=== PATIENT | female | born 1980 | race African-American/Black ===

== ENCOUNTER 2022-04-06 08:40 | Observation (INO) | payer OTHER, SELFPAY ==
[2022-04-03 09:31] VITALS: BMI 42.1
--- NOTE | 2022-04-03 09:51 | PC.NURSE ---
Report to the Outpatient Waiting Room, entrance under the green pavilion located off [facility], at time __6:00AM on date ___04/04/22____. OR Time: __7:30AM . - You and your visitor will be asked a series of questions to screen for COVID 19 for your protection. - Only one visitor is allowed at this time. - The patient visitor is requested to leave or wait in car when not with patient. - A mask is required within the hospital. Patients may have clear liquids (water, carbonated beverages, clear teas, apple juice) until 3 hours prior to surgery with a maximum of 20 ounces. - No food from midnight until time of surgery - Infants may have breast milk until 4 hours before surgery, formula 6 hours prior to surgery. - Children will be allowed to drink immediately following surgery. If applicable, please bring a bottle or sippy cup to assist with drinking. Juice, water, soda, and popsicles are readily available. For infants on formula, please bring formula the day of surgery. Pacifiers are allowed. Take the following medications with a SIP of water the morning of surgery: PAROXETINE Medications to discontinue per physician NONE Date to take last dose Please no make-up, nail uzbek, hairspray, perfume, deodorant, or body powder the day of surgery. No jewelry (including any body piercings) or valuables the day of surgery, leave them at home. Please take a shower or bath the night before, or the morning of, surgery with an antibacterial soap. Wear comfortable, loose fitting clothing. Children are encouraged to wear pajamas. - Jewelry must be removed prior to entering the operating room. Rings and piercings that are not removed may be cut off. - The hospital will not accept responsibility for valuables. - Please leave all valuables, including medications, at home the day of surgery. If you are going home after surgery, a licensed swing driver must drive you home. - NO public transportation without another adult. - We recommend that an adult stay with you for 24 hours following discharge. - We also recommend that you do not drive, make important decision, drink alcoholic beverages, or take any drugs that were not prescribed by your health care provider for at least 24 hours after your discharge time. For Pediatric surgeries, we recommend two adults accompany the child home (only one inside the building at this time). Follow any additional instructions given to you from your surgeon. If you or anyone in your household have experienced Covid symptoms in the past week, please notify your surgeon or the nurse liaison at the phone number below for possible testing. Telephone instructions given to ___PATIENT and asked if any additional questions and then verbalized understanding. Patient advised to call surgeon office or pre surgery nurse liaison [phone] if any additional questions.
[2022-04-04] VITALS (12 sets, daily range): BP systolic 117–147; BP diastolic 70–89; PULSE 61–98; RESP 18–33; TEMP 36.4–37.3; O2SAT 95–100
[2022-04-04] MEDS: ACETAMINOPHEN 500 MG TABLET 1000 MG PO (06:30)
--- NOTE | 2022-04-04 06:38 | ECG_ITS ---
Measurements Intervals Carrier Rate: 71 P: 10 WY: 150 QRS: -27 QRSD: 92 T: 24 QT: 393 QTc: 429 Interpretive Statements SINUS RHYTHM EARLY PRECORDIAL R/S TRANSITION BASELINE WANDER- I, II, AVR, AVL, V4-V6 BORDERLINE ECG Electronically Signed On 04-04-2022 7:54:41 CDT by Earnest Nice D.O.
--- NOTE | 2022-04-04 06:49 | WPDANESEPPF ---
Anes - Initial Pre Proc Eval Procedure: Operation Date: 04/04/22 07:30 Proposed Procedures p Total Laparoscopic Hysterectomy - Radha Edwards MD Date/Time: 04/04/22 06:49 Surgeon: Radha Edwards MD Pre Op Diagnosis: menorrhaghia Patient Data Age: 41 Gender: F Height: 1.49 m Weight: 91.9 kg Last Vital Signs Temp 36.4 C 04/04/22 06:40 Pulse 83 04/04/22 06:40 Resp 18 04/04/22 06:40 BP 125/78 04/04/22 06:40 Pulse Ox 100 04/04/22 06:40 Allergies Allergy/AdvReac Type Severity Reaction Status Date / Time penicillin G Allergy Unknown Verified 04/03/22 09:28 Home Medications Medication Instructions Recorded Confirmed Type paroxetine HCl 10 mg PO QAM 04/03/22 04/03/22 History Patient hx anesthesia problems: none Family hx anesthesia problems: none Results Review: All pre-operative results and documents have been reviewed as part of the pre-operative evaluation. [facility] Past Medical History Medical History Morbid obesity Smoker Surgical History Surgical History (Updated 04/04/22 @ 06:50 by Gus Hobson MD) History of section Social History Social History Smoking packs per day: 1 Smoking cigarettes per day: 20.0 Years smoked: 21 Smoking pack-years: 21.00 Smoking status: Current every day smoker Tobacco type: cigarettes Substance use: never Living arrangements: with family Additional living arrangements comments: & SON Spiritual care concerns: No Anes - Eval Final PreProcedure Day of Procedure 04/04/22 06:49 Patient weight: morbidly obese Heart: regular rate and rhythm Lungs: clear to auscultation Airway: Mallampati scale class III Neurological: alert and oriented Last oral intake: >/= 8 hours ASA classification: III Emergent: no Anesthetic plan: proceed Anesthesia type and monitoring: general ETT and standard monitoring Results Review: All pre-operative results and documents have been reviewed as part of the pre-operative evaluation. Informed Consent: The patient's anesthetic plan and its attendant risks and benefits were discussed with the patient/family/POA. Questions were solicited and answers provided to the satisfaction of the patient/family/POA.
[2022-04-04 07:03] LABS: Hematocrit 44.7 % (37.0-47.0); Hemoglobin 14.8 g/dL (12.0-15.0)
[2022-04-04] MEDS: LACTATED RINGERS 1,000 ML 30 ML IV CONT ×3 (07:03→12:17)
[2022-04-04] MEDS: KETOROLAC 15 MG/ML VIAL (*BKC) IV PUSH (07:04)
--- NOTE | 2022-04-04 07:14 | WPDHPUPDATE1 ---
History and Physical Update Update Date/Time: 04/04/22 07:14 History and Physical has been reviewed, including an updated exam of the patient. There are NO changes in the patient's condition. Risks, benefits, and alternatives have been discussed and questions answered. Patient agrees to proceed with procedure.
[2022-04-04] MEDS: ceFAZolin 2 GM/D5W 50 ML 2 GM/50 ML BAG IVPB (07:29)
[2022-04-04] MEDS: ceFAZolin SODIUM 1 GM VIAL IRRIGATION (08:21)
--- NOTE | 2022-04-04 10:39 | W.PM.PROC2 ---
Procedure Note - Detailed Date of Procedure 04/04/22 Pre-op Diagnosis menorrhaghia Right ureteral injury Post-op Diagnosis Same Procedure Performed Cystoscopy, bilateral retrograde pyelogram, right ureteral stent insertion, intraoperative consultation Surgeon Chastity Ruffin MD Anesthesia General Findings -cautery injury to right distal ureter -placement of right ureteral stent -normal left retrograde pyelogram Description of Procedure I was called for intraoperative consultation with Dr. Edwards at the conclusion of laparoscopic hysterectomy, as he noted a cautery injury to the right ureter with LigaSure device. Laparoscopic inspection revealed a solitary cautery carmela across the right ureter. I did remove the Reddy catheter the patient was prepped. Inserted a 22 F cystoscope through the urethra into the bladder. There were no bladder injuries noted. The patient had bilateral orthotopic ureteral orifices. We cannulated the left ureter and a gentle retrograde pyelogram revealed a delicate ureter and left collecting system without injury or extravasation. We then performed a right retrograde pyelogram that showed a narrowing in the distal ureter at the area of likely injury with slight hydronephrosis above this area. Contrast did move above the area of injury without extravasation. I then manipulated a glide wire into the renal pelvis and advanced a 5 F angiographic catheter. Then exchanged for a Bentson wire and then placed a 6 F variable length stent with a curl in renal pelvis curl in the bladder. A Reddy catheter was inserted the case turned back over to Dr. Edwards. I recommend the patient keep right ureteral stent placed for 4 to 6 weeks. After stent removal she will need a renal ultrasound and possible Lasix renal scan to ensure there is not ureteral stricture at the area of injury 1 to 2 months after stent is removed. Drains No Packing No Pathology None sent Complications No immediate complications Condition Stable Disposition PACU
--- NOTE | 2022-04-04 11:20 | SUR.OPER ---
At 0940 - Dr. Edwards requested a urology consult. At 1001 - Dr. Ruffin arrived and decided to proceed with a Cystoscopy. Patient was repositioned, draped and prepped for Cystoscopy. C-Arm in room. Cystoscopy started at 1025. Cystoscopy, Right Ureteral Stent Placement, Bilateral Retrograde Pyelogram complete at 1035 - see Dr. Ruffin's note. Patient was repositioned and draped to resume Laparoscopic Hysterectomy - Dr. Edwards started at 1044. See Dr. Edwards's note. Dr. Edwards remained in the room for Cystoscopy and additional OR staff (Naresh Jean, Anabel Araya and Adriana Alva helped with positioning and case needs)
--- NOTE | 2022-04-04 11:26 | W.PM.PROC2 ---
Procedure Note - Detailed Date of Procedure 04/04/22 Pre-op Diagnosis menorrhaghia, uterine myoma, large Post-op Diagnosis Same Procedure Performed Total laparoscopic hysterectomy, bilateral salpingectomy.. Surgeon Radha Edwards MD Anesthesia General Findings Very large uterine fibroids at the fundus of the uterus. Very large uterus overall. Normal appearing ovaries and tubes. Description of Procedure This patient was taken to the operating room. She was prepped and draped in the dorsal lithotomy position after induction of general anesthesia. The uterine manipulator and Merritt cup were placed. This was done with a speculum and tenaculum. The speculum was placed. The cervix was grasped with a tenaculum. The stay sutures were placed at 3 and 9:00 a.m.. The stay sutures of 0 Vicryl were brought through the appropriately sized Merritt cup. The tip of the DOMINGO manipulator was placed in the intrauterine cavity. The cup was slid into place around the cervix and into the fornices. It was locked into place. The sutures were then wrapped around the handle and tied under tension. A 5 mm skin incision was made in the left upper quadrant the abdomen. A 5 mm trocar was inserted into the intrauterine cavity under direct visualization of the scope. Pneumoperitoneum was achieved. A left lower quadrant 11 mm incision was made with scalpel. An 11 mm trocar was inserted into the anterior abdominal cavity under direct visualization the scope. A 5 mm infraumbilical incision was made with a scalpel and a 5 mm trocar was inserted the intra-abdominal cavity under direct visualization of the scope. The fallopian tubes were removed bilaterally. The mesosalpinx around the fallopian tubes were cauterized transected with LigaSure cautery. This was done in a bilateral fashion from the ovary to the uterine cornua. The fallopian tube was transected at the uterine cornu and amputated. The tube was taken out the left lower quadrant trocar site. In a stepwise fashion along the lateral aspects of the uterus the round ligament and broad ligaments were cauterized transected down to the level of the uterine arteries. A bladder flap was created in the bladder was moved distally to the end of the cervix and over the Merritt cup. The bilateral uterine arteries were cauterized and transected. It was at this time that is a structure in the right adnexa in the area of the uterine arteries on the right side, alongside the cervix was cauterized. Structure looks very much like a torturous right uterine artery. The structure was running right to left. It was torturous. It was cauterized briefly and not transected. It was believed to be the uterine artery and that this would allow better controlled bleeding as the case proceeded. After the uterus was removed ureteral lysis was performed.Bilateral ureteral lysis was performed. This was done from the pelvic brim down to the uterine artery. This was done with careful dissection using sharp and blunt dissection. It was at this time that the thermal injury of the right ureter at the level of the vaginal cuff was detected. Urology was asked to attend the case and evaluate. This was a very large uterus. Please refer the pathology report. It extended laterally a great deal and had 2 very large uterine fibroids in the fundus. This made the case incredibly challenging. The larger fibroid was removed after the uterine arteries were ligated. It was taken out separately from the cervix and the remainder of the uterus. Colpotomy was then performed. In a circumferential fashion the vagina was transected using unipolar cautery. The incision was made down on the Merritt cup. The uterus, both pieces, and cervix were taken out through the vagina. A pneumo occluder was placed in the vagina. The vaginal cuff was closed with a 0 V lock suture in a running fashion. The pelvis was irrigated with copious amounts antibiotic irrigation. The ureters were a
[2022-04-04] MEDS: fentaNYL CITRATE INJ (*CRX) 100 MCG/2 ML VIAL 25 MCG IV PUSH ×4 (12:06→12:56)
--- NOTE | 2022-04-04 13:10 | PC.NURSE ---
This patient, Heaven Elena, was received from PACU on 04/04/22 at 1310. Patient/family oriented to unit policies and routines
[2022-04-04] MEDS: KETOROLAC 30 MG/ML VIAL (*BKC) IV PUSH (15:14)
[2022-04-04] MEDS: LACTATED RINGERS 1,000 ML 125 ML IV CONT (15:14)
[2022-04-04] MEDS: HYDROcodone/acetaminophen (*CRX) 10-325 MG TABLET 1 TAB PO ×2 (15:15→18:06)
[2022-04-04] MEDS: HYDROcodone/acetaminophen (*CRX) 5-325 MG TABLET 1 TAB PO (22:14)
[2022-04-04] MEDS: IBUPROFEN 600 MG TABLET PO (22:14)
[2022-04-05] VITALS: BP 119/63; PULSE 86; RESP 18; TEMP 37.2
[2022-04-05] MEDS: ONDANSETRON INJ 4 MG/2 ML VIAL IV PUSH (00:21)
[2022-04-05] MEDS: LACTATED RINGERS 1,000 ML 125 ML IV CONT (00:21)
[2022-04-05 04:00] VITALS: BP 104/59; PULSE 88; RESP 20; TEMP 37.2
[2022-04-05] MEDS: HYDROcodone/acetaminophen (*CRX) 5-325 MG TABLET 1 TAB PO ×4 (04:54→19:21)
[2022-04-05] MEDS: IBUPROFEN 600 MG TABLET PO ×3 (04:54→19:21)
--- NOTE | 2022-04-05 07:17 | PM.GYNPNOP ---
DIRECT MARKETING EXECUTIVE - A/P Postoperative Procedures: Procedures Operation Date: 04/04/22 07:30 Actual Procedure Side Surgeon p Total Laparoscopic Hysterectomy with Bilateral Salpingectomy Bilateral R. Rolando Edwards MD s Cystoscopy, Right Ureteral Stent Placement, Bilateral Retrograde Pyelogram Chastity Ruffin MD Postoperative day: 1 Postoperative status: doing well Postoperative plan: see orders Time Spent With Patient Time: Total time spent is greater than 50% in coordination of care (as documented) at patient's floor/unit and/or counseling patient: Surgery complicated by a ureter injury . thermal, has stent, will likely discharge today, Reddy managed by urology, recovering normally. pain reasonable Time with patient: 15 - 25 minutes DIRECT MARKETING EXECUTIVE- PN:Subj Post-Op Subjective Date/time seen: 04/05/22 07:17 Subjective: patient reports feeling better, patient has no complaints and pain is well controlled Exam Const: General: healthy appearing, comfortable and no acute distress Resp: Auscultation: clear to auscultation bilaterally, no rales, no rhonchi and no wheezes Cardio: Rate: regular rate Heart sounds: no click, no murmurs and no rubs GI: Inspection: non-distended Auscultation: normal bowel sounds Extrem: General: normal to inspection, no pedal edema and no calf tenderness DIRECT MARKETING EXECUTIVE - PN: Obj Data Vital Signs Vital Signs: Vital Signs - 24 hr 04/04/22 11:18 04/04/22 11:30 04/04/22 11:45 Temperature 98.3 F Pulse Rate 80 61 78 Respiratory Rate 30 H 33 H 26 H Blood Pressure 120/73 122/70 147/89 H Pulse Oximetry 100 100 100 04/04/22 12:00 04/04/22 12:15 04/04/22 12:30 Temperature Pulse Rate 68 80 98 Respiratory Rate 24 H 22 H 25 H Blood Pressure 139/84 132/80 132/75 Pulse Oximetry 100 95 96 04/04/22 12:45 04/04/22 13:04 04/04/22 13:22 Temperature 97.6 F Pulse Rate 66 66 77 Respiratory Rate 26 H 24 H 18 Blood Pressure 136/76 137/77 121/78 Pulse Oximetry 97 97 04/04/22 16:00 04/04/22 19:00 04/05/22 00:00 Temperature 98.3 F 99.1 F 99 F Pulse Rate 74 84 86 Respiratory Rate 18 18 18 Blood Pressure 120/70 117/78 119/63 Pulse Oximetry 04/05/22 04:00 Temperature 98.9 F Pulse Rate 88 Respiratory Rate 20 Blood Pressure 104/59 L Pulse Oximetry Intake/Output Intake/Output: Intake & Output 04/02/22 04/03/22 04/04/22 04/05/22 23:59 23:59 23:59 23:59 Intake Total 2200 960 Output Total 630 1550 Balance 1570 -590 Meds/Results Medications: Active Medications Generic Name Dose Route Start Last Admin Trade Name Freq PRN Reason Stop Dose Admin Hydrocodone Bitart/Acetaminophen 1 tab 04/04/22 13:07 04/05/22 04:54 Hydrocodone/Acetaminophen (*Crx) 5-325 Mg Tablet PO 1 tab Q3H PRN Administration Pain Rated 5 or Less Hydrocodone Bitart/Acetaminophen 1 tab 04/04/22 13:07 04/04/22 18:06 Hydrocodone/Acetaminophen (*Crx) 10-325 Mg Tablet PO 1 tab Q3H PRN Administration Pain Rated 6 or Greater Lactated Ringer's 1,000 mls @ 125 mls/hr 04/04/22 13:35 04/05/22 00:21 Lr - Lactated Ringers Iv IV CONT 125 mls/hr .Q8H GEOVANY Administration Ibuprofen 600 mg 04/04/22 13:07 04/05/22 04:54 Ibuprofen 600 Mg Tablet PO 600 mg Q6H PRN Administration Cramping Ketorolac Tromethamine 30 mg 04/04/22 13:07 04/04/22 15:14 Ketorolac 30 Mg/Ml Vial (*Bkc) IV PUSH 04/09/22 13:06 30 mg Q6H PRN Administration Pain Rated 4-6 Naloxone HCl 0.1 mg 04/04/22 13:07 Naloxone Hcl 0.4 Mg/Ml Vial IV PUSH Q2M PRN Respiratory rate less than 10 Ondansetron HCl 4 mg 04/04/22 13:07 04/05/22 00:21 Ondansetron Inj 4 Mg/2 Ml Vial IV PUSH 4 mg Q6H PRN Administration Nausea And Vomiting Paroxetine HCl 10 mg 04/05/22 09:00 Paroxetine 10 Mg Tablet PO QAM [facility] Radiology Results: ITS Impressions Retrograde Pyelogram 05/18/22 11:06 IMPRESSION: 1. Right internal ureteral stent placement. Please refer to real-time procedur
[2022-04-05 08:00] VITALS: BP 117/58; PULSE 82; RESP 18; TEMP 36.2
[2022-04-05] MEDS: PARoxetine 10 MG TABLET PO (08:03)
--- NOTE | 2022-04-05 09:49 | WPDUROPN2 ---
Progress Note: A&P Assessment and Plan (1) Intraoperative ureteral injury: Code(s): N99.81 - Other intraoperative complications of genitourinary system Status: Acute Assessment and Plan: The patient can be discharged home at anytime per Urology. She will keep her stent in for 4-6 weeks then have it removed with Dr. Ruffin in [place]. We will then get a MAT a month later to ensure no hydronephrosis is present secondary to a stricture and call her with the results, if no hydro is present at that time, no further follow up will be necessary. Ok to remove her dalton. I will start Oxybutynin 5mg TID PRN for stent irritation. Subjective Subjective Date/Time Seen: 04/05/22 09:49 POD #1 Cystoscopy, bilateral retrograde pyelogram, right ureteral stent insertion, intraoperative consultation The patient is doing well this morning, she does c/o stent pain with activity. She is tolerating her diet and urine is clear in catheter. Review of Systems Cardiovascular: Cardiovascular: Denies chest pain Respiratory: Respiratory: Reports no additional respiratory complaints Gastrointestinal: Gastrointestinal: Reports abdominal pain, Denies nausea and Denies vomiting Genitourinary: Genitourinary: Denies hematuria and Reports flank pain Exam Resp: Effort & Inspection: normal respiratory effort Cardio: Rate: regular rate GI: GI Palp: Yes Soft to palpation and No Tenderness to palpation present (GI) : General: Yes CVA tenderness on the right Urinary Catheter: Urinary Catheter: patent and draining and urine clear Extrem: General: edema bilateral Objective Data Vital Signs Vital Signs: Vital Signs - 24 hr 04/04/22 11:18 04/04/22 11:30 04/04/22 11:45 Temperature 98.3 F Pulse Rate 80 61 78 Respiratory Rate 30 H 33 H 26 H Blood Pressure 120/73 122/70 147/89 H Pulse Oximetry 100 100 100 04/04/22 12:00 04/04/22 12:15 04/04/22 12:30 Temperature Pulse Rate 68 80 98 Respiratory Rate 24 H 22 H 25 H Blood Pressure 139/84 132/80 132/75 Pulse Oximetry 100 95 96 04/04/22 12:45 04/04/22 13:04 04/04/22 13:22 Temperature 97.6 F Pulse Rate 66 66 77 Respiratory Rate 26 H 24 H 18 Blood Pressure 136/76 137/77 121/78 Pulse Oximetry 97 97 04/04/22 16:00 04/04/22 19:00 04/05/22 00:00 Temperature 98.3 F 99.1 F 99 F Pulse Rate 74 84 86 Respiratory Rate 18 18 18 Blood Pressure 120/70 117/78 119/63 Pulse Oximetry 04/05/22 04:00 04/05/22 08:00 Temperature 98.9 F 97.1 F L Pulse Rate 88 82 Respiratory Rate 20 18 Blood Pressure 104/59 L 117/58 L Pulse Oximetry Intake/Output Intake/Output: Intake & Output 04/02/22 04/03/22 04/04/22 04/05/22 23:59 23:59 23:59 23:59 Intake Total 2200 2460 Output Total 630 2700 Balance 1570 -240 Meds/Results Medications: Active Medications Generic Name Dose Route Start Last Admin Trade Name Freq PRN Reason Stop Dose Admin Hydrocodone Bitart/Acetaminophen 1 tab 04/04/22 13:07 04/05/22 08:04 Hydrocodone/Acetaminophen (*Crx) 5-325 Mg Tablet PO 1 tab Q3H PRN Administration Pain Rated 5 or Less Hydrocodone Bitart/Acetaminophen 1 tab 04/04/22 13:07 04/04/22 18:06 Hydrocodone/Acetaminophen (*Crx) 10-325 Mg Tablet PO 1 tab Q3H PRN Administration Pain Rated 6 or Greater Lactated Ringer's 1,000 mls @ 125 mls/hr 04/04/22 13:35 04/05/22 00:21 Lr - Lactated Ringers Iv IV CONT 125 mls/hr .Q8H GEOVANY Administration Ibuprofen 600 mg 04/04/22 13:07 04/05/22 04:54 Ibuprofen 600 Mg Tablet PO 600 mg Q6H PRN Administration Cramping Ketorolac Tromethamine 30 mg 04/04/22 13:07 04/04/22 15:14 Ketorolac 30 Mg/Ml Vial (*Bkc) IV PUSH 04/09/22 13:06 30 mg Q6H PRN Administration Pain Rated 4-6 Naloxone HCl 0.1 mg 04/04/22 13:07 Naloxone Hcl 0.4 Mg/Ml Vial IV PUSH Q2M PRN Respiratory rate less than 10 Ondansetron HCl 4 mg 04/04/22 13:07 04/05/22 00:21 Ondansetron Inj
--- NOTE | 2022-04-05 10:24 | WPDANESPN ---
Anes - Prog Note Post-Op Date/Time: 04/05/22 10:24 Cardiovascular status: normal Respiratory status: normal Airway patency: baseline Mental status: baseline Post-Op hydration status: normal Vital Signs: Last Vital Signs Temp 36.2 C L 04/05/22 08:00 Pulse 82 04/05/22 08:00 Resp 18 04/05/22 08:00 BP 117/58 L 04/05/22 08:00 Pulse Ox 97 04/04/22 13:04 Pain Score (VAS): 3 I/O: Intake & Output 04/04/22 04/05/22 04/05/22 23:59 07:59 15:59 Intake Total 7315 233 1311 Output Total 600 1550 1150 Balance 900 -590 350 Laboratory Tests 04/04/22 06:58 Post-procedural complaints: none Patient Feedback: Patient satisfied with anesthetic care.
[2022-04-05] MEDS: OXYBUTYNIN CHLORIDE 5 MG TABLET PO (17:34)
[2022-04-05] MEDS: HYDROcodone/acetaminophen (*CRX) 10-325 MG TABLET 1 TAB PO ×2 (17:34→22:02)
[2022-04-05 17:41] VITALS: BP 152/89; PULSE 79; PULSE 82; RESP 18; RESP 20; TEMP 36.9; O2SAT 97
[2022-04-05 19:13] VITALS: BP 150/86; PULSE 96; RESP 18; TEMP 36.9
--- NOTE | ~2022-04-06 | XR_ITS ---
EXAMINATION: XR retrograde pyelo w/stent BI DATE: 04/04/2022 10:49 INDICATION: Right internal ureteral stent placement TECHNIQUE: Fluoroscopic images from a right internal ureteral stent placement are submitted for dano owens 48 seconds of fluoroscopy time. 94 fluoroscopic images. FINDINGS: There is a right double-J internal ureteral stent projecting in expected position, with proximal [place] loop at the level of the renal pelvis and distal loop in the pelvis within the bladder lumen. IMPRESSION: 1. Right internal ureteral stent placement. Please refer to real-time procedural findings for marjorie escalante. Reviewed, dictated and finalized at location A. IMPRESSION: 1. Right internal ureteral stent placement. Please refer to real-time procedu ral findings for details.
[2022-04-06] MEDS: IBUPROFEN 600 MG TABLET PO ×2 (04:40→10:54)
[2022-04-06] MEDS: OXYBUTYNIN CHLORIDE 5 MG TABLET PO (04:41)
[2022-04-06] MEDS: HYDROcodone/acetaminophen (*CRX) 5-325 MG TABLET 1 TAB PO ×2 (04:41→09:21)
--- NOTE | 2022-04-06 07:31 | PM.GYNPNOP ---
RCP - A/P Assessment and plan (1) Post-op pain: Code(s): G89.18 - Other acute postprocedural pain Status: Acute Assessment and Plan: patient stayed an additional day for delayed bowel function and pain control, to D?C (2) Intraoperative ureteral injury: Code(s): N99.81 - Other intraoperative complications of genitourinary system Status: Acute Postoperative Procedures: Procedures Operation Date: 04/04/22 07:30 Actual Procedure Side Surgeon p Total Laparoscopic Hysterectomy with Bilateral Salpingectomy Bilateral Radha Edwards MD s Cystoscopy, Right Ureteral Stent Placement, Bilateral Retrograde Pyelogram Chastity Ruffin MD Postoperative day: 2 Postoperative status: doing well Postoperative plan: see orders Time Spent With Patient Time: Total time spent is greater than 50% in coordination of care (as documented) at patient's floor/unit and/or counseling patient: Time with patient: 15 - 25 minutes RCP- PN:Subj Post-Op Subjective Date/time seen: 04/06/22 07:31 Subjective: patient reports feeling better, patient has no complaints and pain is well controlled Exam Const: General: healthy appearing, comfortable and no acute distress Resp: Auscultation: clear to auscultation bilaterally, no rales, no rhonchi and no wheezes Cardio: Rate: regular rate Heart sounds: no click, no murmurs and no rubs GI: Inspection: non-distended Auscultation: normal bowel sounds Extrem: General: normal to inspection, no pedal edema and no calf tenderness RCP - PN: Obj Data Vital Signs Vital Signs: Vital Signs - 24 hr 04/05/22 08:00 04/05/22 17:41 04/05/22 19:13 Temperature 97.1 F L 98.5 F 98.4 F Pulse Rate 82 82 96 Respiratory Rate 18 18 18 Blood Pressure 117/58 L 152/89 H 150/86 H Pulse Oximetry 97 Intake/Output Intake/Output: Intake & Output 04/03/22 04/04/22 04/05/22 04/06/22 23:59 23:59 23:59 23:59 Intake Total 2200 3610 800 Output Total 251 2885 950 Balance 1570 -265 -150 Meds/Results Medications: Active Medications Generic Name Dose Route Start Last Admin Trade Name Freq PRN Reason Stop Dose Admin Hydrocodone Bitart/Acetaminophen 1 tab 04/04/22 13:07 04/06/22 04:41 Hydrocodone/Acetaminophen (*Crx) 5-325 Mg Tablet PO 1 tab Q3H PRN Administration Pain Rated 5 or Less Hydrocodone Bitart/Acetaminophen 1 tab 04/04/22 13:07 04/05/22 22:02 Hydrocodone/Acetaminophen (*Crx) 10-325 Mg Tablet PO 1 tab Q3H PRN Administration Pain Rated 6 or Greater Ibuprofen 600 mg 04/04/22 13:07 04/06/22 04:40 Ibuprofen 600 Mg Tablet PO 600 mg Q6H PRN Administration Cramping Ketorolac Tromethamine 30 mg 04/04/22 13:07 04/04/22 15:14 Ketorolac 30 Mg/Ml Vial (*Bkc) IV PUSH 04/09/22 13:06 30 mg Q6H PRN Administration Pain Rated 4-6 Naloxone HCl 0.1 mg 04/04/22 13:07 Naloxone Hcl 0.4 Mg/Ml Vial IV PUSH Q2M PRN Respiratory rate less than 10 Ondansetron HCl 4 mg 04/04/22 13:07 04/05/22 00:21 Ondansetron Inj 4 Mg/2 Ml Vial IV PUSH 4 mg Q6H PRN Administration Nausea And Vomiting Oxybutynin Chloride 5 mg 04/05/22 10:01 04/06/22 04:41 Oxybutynin Chloride 5 Mg Tablet PO 5 mg TID PRN Administration bladder spasms Paroxetine HCl 10 mg 04/05/22 09:00 04/05/22 08:03 Paroxetine 10 Mg Tablet PO 10 mg QAM GEOVANY Administration Radiology Results: ITS Impressions Retrograde Pyelogram 04/04/22 11:06 IMPRESSION: 1. Right internal ureteral stent placement. Please refer to real-time procedural findings for details. Labs CBC & Chem 7: 04/04/22 06:58
[2022-04-06 08:45] VITALS: BP 148/76; PULSE 76; RESP 18; TEMP 36.4; O2SAT 97
[2022-04-06] MEDS: PARoxetine 10 MG TABLET PO (09:21)
--- NOTE | 2022-04-06 09:30 | PC.NURSE ---
Pt introductions made and plan of care discussed per post op tentmaker surgery, pain management, daily care activities and pending discharge to home. PT sole recipient of such instructions and there appears to be diminished cognitive abilities. So a family member was required to attend discharge instructions when being discharged today. PT received such instructions this shift via one to one discussion and demonstrations. PT did verbalized understanding of such care.
[2022-04-06 09:40] VITALS: PULSE 76; RESP 18; O2SAT 97
--- NOTE | 2022-04-06 10:30 | PC.NURSE ---
Pt and her mother, Amparo, both received discharge instructions per protocol and verbalized understanding
--- NOTE | 2022-04-06 10:54 | PC.NURSE ---
PT discharged to home via wheelchair accompanied by her mother and taken to waiting car. Follow up appts confirmed
--- NOTE | 2022-05-06 15:20 | PM.DS ---
DS: Admitting Diagnosis Discharge Date 04/06/22 Admitting Diagnosis Severe menorrhagia DS: Discharge Diagnosis Discharge Diagnosis (1) Menorrhagia: Code(s): N92.0 - Excessive and frequent menstruation with regular cycle Status: Acute (2) Severe dysmenorrhea: Code(s): N94.6 - Dysmenorrhea, unspecified Status: Acute (3) Myoma: Code(s): D21.9 - Benign neoplasm of connective and other soft tissue, unspecified Status: Acute (4) Intraoperative ureteral injury: Code(s): N99.81 - Other intraoperative complications of genitourinary system Status: Acute (5) Post-op pain: Code(s): G89.18 - Other acute postprocedural pain Status: Acute DS: Summary Hospital Course Hospital Course: this patient is a 41-year-old female who presented to the hospital for surgery. She was to have a total laparoscopic hysterectomy bilateral salpingectomy. That was completed but a ureter injury occurred during the surgery. It was identified intraoperatively and Urology was able to place a stent in the ureter. It was a thermal injury. Postoperatively the patient had significant pain. She had pain from the stent. She was observed for 48 hours. She was discharged home on postoperative day 2. no postoperative complications With the exception of excessive postoperative pain. she was discharged home on postoperative day 2 with short-term follow-up. Time Spent with Patient Time attestation: Total time spent providing and/or coordinating discharge services: DS: Data Data Completed and Pending Completed studies during hospitalization: Pending at discharge 04/04/22 09:17 Surgical [PTH] Routine Discharge Plan Discharge Attending physician on discharge: Radha Edwards Consulting providers: Fredi Ramsay ; Angelica Linares ; Chastity Ruffin Rafe M. Discharging Clinician: Radha Edwards Anticipated Discharge Date/Time: 04/06/22 09:30 Patient Disposition: Home, Self-Care Activity: may shower, no driving and pelvic rest Diet: as tolerated and regular Wound Care Instructions: incision open to air Discharge Instructions: Urology Instructions: You will be contacted for an appointment with Dr. Ruffin at our [place] office for removal of your stent in 4-6 weeks. [facility] [address] [place] [address] [address] [place] [address] You will also get an order at that appointment for a renal ultrasound to be done a month after the stent removal to make sure your ureter has healed correctly without any scar tissue and is allowing the kidney to drain properly. You should expect some blood in your urine, cloudy urine, urinary frequency, urgency ankd and pain in relation to your stent especially with activity and urination. These are normal expectations with a stent. You may take Oxybutynin 5mg 3x/day as needed for stent irritation. If you develop a fever, your urine becomes grossly bloody or you notice an odor to your urine call the office or go to the ER. Patient Instructions: Laparoscopic Hysterectomy (DC), Pain Management After Surgery (DC) Stand Alone Forms: General Discharge Instructions Follow-up/Referrals: Chastity Ruffin MD [Physician] - Discharge Medications: New oxybutynin chloride 5 mg tablet 5 mg PO TID PRN (Reason: bladder spasms) Qty: 90 2RF hydrocodone-acetaminophen 5-325 mg tablet 1 tablet PO Q4H PRN (Reason: pain) Qty: 25 0RF Continued paroxetine HCl 10 mg tablet 10 mg PO QAM Date of admission: 04/06/22 08:40 Primary Care Provider: PHYSICIAN,STANDPIPE TENDER Admitting Provider: Radha Edwards Attending physician on admission: Radha Edwards Condition: Stable
== END 2022-04-06 10:54 | disposition home or self-care (01) ==
LOC: ANHSURGERY 09:02 → ANHOB2 09:02
PROVIDERS: Anesthesiology; Urology; Admitting Provider Obstetrics & Gynecology; Visit Provider Obstetrics & Gynecology
PROC: 0UT9FZZ Resection of Uterus, Via Natural or Artificial Opening With Percutaneous Endoscopic Assistance (ICD-10-PCS; CPT 58554; principal; 2022-04-04 07:30)
PROC: (CPT 52352; 2022-04-04 07:30)
DX: N92.0 Excessive and frequent menstruation with regular cycle (principal); R10.2 Pelvic and perineal pain; N80.0 Endometriosis of uterus; D25.1 Intramural leiomyoma of uterus; D25.0 Submucous leiomyoma of uterus; D25.2 Subserosal leiomyoma of uterus; N83.8 Other noninflammatory disorders of ovary, fallopian tube and broad ligament; N99.81 Other intraoperative complications of genitourinary system
CPT/HCPCS: 58554; 52332; 36415; 74420; 85014; 85018; 86850; 86900; 86901; 88307; 93005; 99199; A9270; C1769; C1887; C2617; G0378; G0379; J0330; J0690; J1100; J1170; J1885; J2250; J2405; J2704; J2710; J3010; J7030; J7120; Q9966; Q9968

== ENCOUNTER 2023-12-25 08:45 | Outpatient (CLI) | payer OTHER, SELFPAY ==
--- NOTE | 2023-12-25 12:00 | NEURO_ITS ---
Impression: # Complains of numbness of right foot. # Normal Nerve Conduction Study. # Normal needle/EMG exam. Nerve Conduction Studies Anti Sensory Summary Table Stim Site NR Peak (ms) P-T Amp (?V) Site1 Site2 Delta-P (ms) Dist (cm) Iftikhar (m/s) Right Saphenous Anti Sensory (Ant Med Mall) 14cm 2.8 7.8 14cm Ant Med Mall 2.8 0.0 Right Sup Fibular Anti Sensory (Ant Lat Mall) 14 cm 3.1 13.3 14 cm Ant Lat Mall 3.8 16.0 42 Right Sural Anti Sensory (Lat Mall) Calf 2.7 10.1 Calf Lat Mall 2.7 16.0 59 Motor Summary Table Stim Site NR Onset (ms) O-P Amp (mV) Site1 Site2 Delta-0 (ms) Dist (cm) Iftikhar (m/s) Right Peroneal Motor (Vastus Med) Ankle 3.1 3.2 Popit Ankle 6.2 38.0 61 Popit 9.3 3.1 Right Tibial Motor (Abd Neumann Brev) Ankle 4.1 3.4 Knee Ankle 6.7 37.0 55 Knee 10.8 1.2 F Wave Studies NR F-Lat (ms) L-R F-Lat (ms) Right Peroneal (Mrkrs) (EDB) 41.41 Right Tibial (Mrkrs) (Abd Hallucis) 40.35 EMG Side Muscle Nerve Root Ins Act Fibs Amp Dur Recrt Comment Right AntTibialis Dp Br Fibular L4-5 Nml Nml Nml Nml Nml Right Gastroc Tibial S1-2 Nml Nml Nml Nml Nml Right Fibularis Long Sup Br Fibular L5-S1 Nml Nml Nml Nml Nml Right Flex Dig Long Tibial L5-S2 Nml Nml Nml Nml Nml Right Ext Dig Brev Dp Br Fibular L5, S1 Nml Nml Nml Nml Nml Right QuadratusFem QuadFemoris L4-5, S1 Nml Nml Nml Nml Nml MTDD
== END 2023-12-25 08:46 | disposition home or self-care (01) ==
PROVIDERS: PCP Emergency Medicine; Visit Provider Student in an Organized Health Care Education/Training Program
DX: M21.371 Foot drop, right foot (principal)
CPT/HCPCS: 95886; 95909

== ENCOUNTER 2024-06-10 08:48 | Outpatient (CLI) | payer OTHER, SELFPAY ==
--- NOTE | ~2024-06-10 | US_ITS ---
EXAMINATION: US soft tissue abdomen DATE: 06/10/2024 09:22 INDICATION: Palpable left-sided abdominal mass TECHNIQUE: Multiple grayscale and Doppler ultrasound images of the region of concern at the left abdo karina wall were obtained. COMPARISON: None FINDINGS: Focal ill-defined region in the subcutaneous fat at the region of concern with posterior acoustic sha dowing. This region measures approximately 2 cm in maximal extent. On the cine images there appears b e some movement of the tissues within this region with Valsalva. On one of the sets of cine images th ere appears to be a defect along the linear echogenic peritoneal margin however specificity is limite d as this lies in the region of posterior acoustic shadowing. No evident peristalsing bowel. No discr ete soft tissue masses or fluid collections. IMPRESSION: 1. Small region of posterior acoustic shadowing in the subcutaneous tissues at the region of concern with suggestion of a possible defect in the underlying peritoneum suspicious for a small fat-containi ng ventral hernia. Would consider CT for more definitive determination. Reviewed, dictated and finalized at location A. IMPRESSION: 1. Small region of posterior acoustic shadowing in the subcutaneous tissues at the region of concern with suggestion of a possible defect in the underlying pe ritoneum suspicious for a small fat-containing ventral hernia. Would consider C T for more definitive determination.
== END 2024-06-10 08:49 | disposition home or self-care (01) ==
PROVIDERS: PCP Emergency Medicine; Visit Provider Emergency Medicine
DX: R19.09 Other intra-abdominal and pelvic swelling, mass and lump (principal)
CPT/HCPCS: 76705

== ENCOUNTER 2024-07-10 15:29 | Outpatient (CLI) | payer OTHER, SELFPAY ==
--- NOTE | ~2024-07-10 | MM_ITS ---
EXAMINATION: MM screening niall BI w neo HISTORY: Screening TECHNIQUE: Craniocaudal and mediolateral oblique 3-D tomosynthesis images were obtained and synthetic 2-D images were generated. CAD analysis was submitted and interpreted. COMPARISON: No prior studies for comparison. BREAST PARENCHYMAL COMPOSITION: Not dense: There are scattered areas of fibroglandular density. FINDINGS: There is no evidence of suspicious mass, calcification, or architectural distortion to sugg est malignancy in either breast. There has been no suspicious interval change. IMPRESSION: 1. No mammographic evidence of malignancy. 2. Recommend routine screening mammography in one year. BI-RADS Category 1: Negative Reviewed, dictated and finalized at location B.
== END 2024-07-10 15:30 | disposition home or self-care (01) ==
LOC: ANHIMG 15:30
PROVIDERS: PCP Emergency Medicine; Visit Provider Emergency Medicine
DX: Z12.31 Encounter for screening mammogram for malignant neoplasm of breast (principal)
CPT/HCPCS: 77063; 77067

== ENCOUNTER 2024-07-30 15:35 | Outpatient (CLI) | payer OTHER, SELFPAY ==
--- NOTE | ~2024-07-30 | CT_ITS ---
Non-contrast CT scan of the Abdomen and Pelvis Clinical indication: Incisional hernia Technique: 2.5 mm axial scans were obtained through the abdomen and pelvis without intravenous or or al contrast. Dose reduction technique was used on this scan by utilizing automated exposure control a nd iterative reconstruction technique. The dose-length product (DLP) was 1388.42 mGy-cm. Findings: Images through the lung bases reveal focal partially groundglass opacity at the posterior aspect of the right upper lobe. The liver, spleen, pancreas, kidneys, and adrenals appear normal. Large calcified gallstones are pres ent. There is no aortic aneurysm. There is no evidence of bowel obstruction. There is a small ventral midline fat containing hernia sup erior to the umbilicus (axial image 81). Small fat-containing umbilical hernia also noted. Images through the pelvis were performed. There is no evidence of ascites or lymphadenopathy. Urinary bladder unremarkable. No pelvic mass seen. There is apparent mild diffuse sclerosis of the L3 vertebral body with a focal central lucency (sagit serina image 89). Impression: Small fat-containing midline ventral hernia superior to the umbilicus. Additional small fat-containin g umbilical hernia. Cholelithiasis. Focal partially groundglass opacity or nodule in the right upper lobe, nonspecific. This could reflec t focal pneumonitis or groundglass nodule. Consider dedicated chest CT and/or follow-up exam. Mild diffuse sclerosis of L3 with focal central lucency. Appearance is nonspecific. Correlate for any relevant symptoms. MR and/or bone scan recommended for further evaluation. Reviewed, dictated and finalized at location . Impression: Small fat-containing midline ventral hernia superior to the umbilicus. Addition al small fat-containing umbilical hernia. Cholelithiasis. Focal partially groundglass opacity or nodule in the right upper lobe, nonspeci fic. This could reflect focal pneumonitis or groundglass nodule. Consider dedic ated chest CT and/or follow-up exam. Mild diffuse sclerosis of L3 with focal central lucency. Appearance is nonspeci fic. Correlate for any relevant symptoms. MR and/or bone scan recommended for f urther evaluation.
== END 2024-07-30 15:36 | disposition home or self-care (01) ==
PROVIDERS: PCP Emergency Medicine; Visit Provider Surgery
DX: K43.9 Ventral hernia without obstruction or gangrene (principal); K42.9 Umbilical hernia without obstruction or gangrene; K80.20 Calculus of gallbladder without cholecystitis without obstruction; M48.8X6 Other specified spondylopathies, lumbar region; R91.8 Other nonspecific abnormal finding of lung field
CPT/HCPCS: 74176

== ENCOUNTER 2024-10-23 07:56 | Outpatient (CLI) | payer OTHER, SELFPAY ==
--- NOTE | 2024-10-23 08:05 | ECG_ITS ---
Test Date: 2024-10-23 08:27:53 Measurements Intervals [place] Rate: 64 P: 46 DC: 165 QRS: -28 QRSD: 92 T: 46 QT: 408 QTc: 422 Interpretive Statements SINUS RHYTHM WITH SINUS ARRHYTHMIA BORDERLINE LEFT AXIS DEVIATION [QRS AXIS < -20] LOW QRS VOLTAGE IN PRECORDIAL LEADS [QRS DEFLECTION < 1.0 mV IN CHEST LEADS] No previous ECG available for comparison Electronically Signed On 10-23-2024 12:49:41 REIMBURSEMENT LIAISON by Justin Corado M.D.
[2024-10-23 08:36] LABS: Hematocrit 42.9 % (37.0-47.0); Hemoglobin 14.4 g/dL (12.0-15.0)
== END 2024-10-23 07:57 | disposition home or self-care (01) ==
LOC: ANHSURGERY 08:03
PROVIDERS: Anesthesiology; PCP Emergency Medicine; Visit Provider Surgery
DX: Z01.818 Encounter for other preprocedural examination (principal); K43.2 Incisional hernia without obstruction or gangrene; D64.9 Anemia, unspecified; F17.210 Nicotine dependence, cigarettes, uncomplicated
CPT/HCPCS: 36415; 85014; 85018; 86850; 86900; 86901; 93005

== ENCOUNTER 2024-10-31 17:17 | Inpatient (IN) | payer OTHER, SELFPAY ==
[2024-10-22 09:23] VITALS: BMI 42.5
--- NOTE | 2024-10-22 09:38 | PC.NURSE ---
Report to the Outpatient Waiting Room, entrance under the green pavilion located off [facility], at time _0830_ on date _[phone]_. Planned Procedure Time: _1030_.? Time changes happen often and if your time is changed the preop area will call you the afternoon before. - You and your visitor will be asked to self-screen and do not enter if you have any COVID symptoms. Please call surgeon if you need to reschedule. - A mask is optional within the hospital at this time. Patients may have clear liquids (water, carbonated beverages, clear teas, apple juice) until 3 hours prior to surgery with a maximum of 20 ounces. - No food from midnight until time of surgery and no smoking. This includes no chewing gum, candy or mints. Take only the following medications with a SIP of water on the morning of surgery: ___Sertraline DO NOT STOP ANY OF YOUR OTHER PRESCRIPTION MEDICATIONS PRIOR TO SURGERY EXCEPT THE FOLLOWING Medications to discontinue per physician __None___ Please no make-up, nail british, hairspray, perfume, deodorant, or body powder the day of surgery.? No jewelry (including any body piercings) or valuables the day of surgery, leave them at home.? Please take a shower or bath the night before, or the morning of, surgery with an antibacterial soap.? Wear comfortable, loose fitting clothing.? - Jewelry must be removed prior to entering the operating room.? Rings and piercings that are not removed may be cut off. - The hospital will not accept responsibility for valuables.? - Please leave all valuables, including medications, at home the day of surgery. If you are going home after surgery, a licensed otr owner operator truck driver must drive you home.? - NO public transportation without another adult if you receive anesthesia. - We recommend that an adult stay with you for 24 hours following discharge. - We also recommend that you do not drive, make important decision, drink alcoholic beverages, or take any drugs that were not prescribed by your health care provider for at least 24 hours after your discharge time. Follow any additional instructions given to you from your surgeon. Telephone instructions given to _Heaven__and asked if any additional questions and then verbalized understanding. Patient advised to call surgeon office or pre surgery nurse liaison [phone] if any additional questions.
[2024-10-30] VITALS (24 sets, daily range): BP systolic 92–149; BP diastolic 46–93; PULSE 72–102; RESP 14–24; TEMP 35.6–36.3; O2SAT 92–100
[2024-10-30] MEDS: LACTATED RINGERS 1,000 ML 30 ML IV CONT ×3 (07:00→13:34)
[2024-10-30] MEDS: ACETAMINOPHEN 500 MG TABLET 1000 MG PO ×2 (07:00→20:15)
[2024-10-30] MEDS: KETOROLAC 15 MG/ML VIAL (*BKC) IV PUSH (07:00)
--- NOTE | 2024-10-30 07:11 | P.PNAN_ITS ---
Anes - Initial Pre Proc Eval Procedure: Operation Date: 10/30/24 07:30 Proposed Procedures p Robotic Assisted Laparoscopic Port Site Incisional Hernia Repair Times Two with Mesh (Lateral Abdominal Wall and Periumbilical) - Rolando Vallecillo MD Date/Time: 10/30/24 07:11 Surgeon: Rolando Vallecillo MD Pre Op Diagnosis: Reducible Port Site Ventral Incisional Hernia X 2 Patient Data Age: 43 Gender: F Height: 1.49 m Weight: 94 kg Allergies Allergy/AdvReac Type Severity Reaction Status Date / Time penicillin G Allergy Unknown Verified 10/22/24 09:21 Home Medications ?Medication ?Instructions ?Recorded ?Confirmed ?Type sertraline 25 mg tablet 25 mg PO DAILY 06/03/24 10/22/24 History Patient hx anesthesia problems: none Family hx anesthesia problems: none Results Review: All pre-operative results and documents have been reviewed as part of the pre- operative evaluation. [facility] Past Medical History Medical History Morbid obesity Smoker Surgical History Surgical History Hx of hysterectomy History of section Social History Social History Smoking packs per day: 1 Smoking cigarettes per day: 20.0 Years smoked: 23 Smoking pack-years: 23.00 Smoking status: Current every day smoker Tobacco type: cigarettes Additional smoking assessment comments: Down to 1/2 a pack a day. Alcohol intake: current Alcohol use details: very rarely. On holidays or very seldomly Substance use: never Substance use type: marijuana Other substance usage details: twice a day Do You Feel Safe in your Home?: Yes Lack of Transportation: No Lack of Food: Sometimes True Current Housing: I Have Housing Concerned About Future Housing: No Difficulty Paying Gas/Electric Bills: No Difficulty Paying for Meds: No Currently Unemployed: No Education: Don't Know Difficulty w/ Childcare or Family Care: No Living arrangements: with family Additional living arrangements comments: & SON Spiritual care concerns: No Anes - Eval Final PreProcedure Day of Procedure 10/30/24 07:11 Patient weight: morbidly obese Heart: regular rate and rhythm Lungs: clear to auscultation and decreased breath sounds Airway: Mallampati scale class II Neurological: alert and oriented Last oral intake: >/= 8 hours ASA classification: III Emergent: no Anesthetic plan: proceed Anesthesia type and monitoring: general ETT and standard monitoring Results Review: All pre-operative results and documents have been reviewed as part of the pre- operative evaluation. Pt smokes 1/2 ppd for approx 22 years, ELMER on CPAP and is compliant. Morbid obesity. Informed Consent: The patient's anesthetic plan and its attendant risks and benefits were discussed with the patient/family/POA. Questions were solicited and answers provided to the satisfaction of the patient/family/POA.
--- NOTE | 2024-10-30 07:17 | P.HP_ITS ---
H&P: HPI History of Present Illness Date/Time: 10/30/24 07:17 Chief Complaint: Incisional port site hernias Narrative: Ms. Raines returns to the office for recheck of her umbilical and left abdominal wall incisional hernia. After her last visit, she was sent for a CT scan which showed a small fat-containing ventral hernia superior to the umbilicus and a small fat-containing umbical hernia. She has developed some tenderness associated with the umbilical hernia, but she states she has a dog that sits and jumps on her, which is what causes the discomfort. Otherwise, no changes to the hernias. She denies nausea, vomiting, abdominal distension or change in bowel habits. Review of Systems Review of Systems: The remainder of the review of systems to include constitutional, HEENT, cardiovascular, respiratory, GI, , integumentary, musculoskeletal, endocrine, immunologic, hematologic, psychiatric, and neurologic are all negative except for which is mentioned above in the HPI. [facility] Past Medical History Medical History Morbid obesity Smoker Surgical History Surgical History Hx of hysterectomy History of section Social History Social History Smoking packs per day: 1 Smoking cigarettes per day: 20.0 Years smoked: 23 Smoking pack-years: 23.00 Smoking status: Current every day smoker Tobacco type: cigarettes Additional smoking assessment comments: Down to 1/2 a pack a day. Alcohol intake: current Alcohol use details: very rarely. On holidays or very seldomly Substance use: never Substance use type: marijuana Other substance usage details: twice a day Do You Feel Safe in your Home?: Yes Lack of Transportation: No Lack of Food: Sometimes True Current Housing: I Have Housing Concerned About Future Housing: No Difficulty Paying Gas/Electric Bills: No Difficulty Paying for Meds: No Currently Unemployed: No Education: Don't Know Difficulty w/ Childcare or Family Care: No Living arrangements: with family Additional living arrangements comments: & SON Spiritual care concerns: No Meds Home Medications and Allergies Home Medications ?Medication ?Instructions ?Recorded ?Confirmed ?Type sertraline 25 mg tablet 25 mg PO DAILY 06/03/24 10/22/24 History Allergies Allergy/AdvReac Type Severity Reaction Status Date / Time penicillin G Allergy Unknown Verified 10/22/24 09:21 Exam Const: General: comfortable and no acute distress HENMT: Ears: TM's normal bilaterally Face/Nose/Sinus: Normal nares present Mouth: Yes moist mucous membranes Eyes: General: appearance normal, both eyes and all related structures Sclera: sclerae normal Pupils: Equal, round and reactive pupils present EOM: EOMs intact bilaterally Neck: Neck: supple and no JVD Resp: Effort & Inspection: normal respiratory effort Auscultation: clear to auscultation bilaterally Cardio: Rate: regular rate Rhythm: regular rhythm GI: Other: Abdomen Soft, nontender, obese. Left abdominal wall incisional hernia underneath a laparoscopic port site scar. Minimal tenderness to palpation. Small, reducible periumbilical pert-side incisional hernia. Both hernias measure 2cm in diameter. No other hernias or masses. Skin: General skin exam: normal color and no rashes or lesions noted Neuro: General: gait normal Speech: normal speech Motor exam (neuro): 5/5 motor strength present throughout Sensory Exam: normal sensation Extrem: General: normal to inspection Psych: Mental Status: mental status grossly normal Affect: normal affect Assessment and Plan Assessment and plan (1) Umbilical hernia: Code(s): K42.9 - Umbilical hernia without obstruction or gangrene Status: Acute Assessment and Plan: The patient has two small, reducible port site incisional hernias, one in the left lateral abdomen and the other just above her umbilicus, both measuring 2cm in diameter. I've recommended proceeding with robotic assisted laparoscopic port site incisional hernia x2 with mesh (left lateral abdominal wall and periumbilical) to be performed in the OR under general anesthesia as an outpatient. The surgery was discussed in detail including description, risks, benefits, the use of mesh, post-operative restrictions, time off work after surgery, anticipated recovery, and expected outcome. She agrees to proceed as recommended, but wishes to wait until October due to her work, which I feel is reasonable. She will call prior if she develops any complicating symptoms. (2) Incisional hernia: Code(s): K43.2 - Incisional hernia without obstruction or gangrene Status: Acute
--- NOTE | 2024-10-30 07:24 | WPDHPUPDATE1 ---
History and Physical Update Update Date/Time: 10/30/24 07:24 History and Physical has been reviewed, including an updated exam of the patient. There are NO changes in the patient's condition. Risks, benefits, and alternatives have been discussed and questions answered. Patient agrees to proceed with procedure.
[2024-10-30] MEDS: ceFAZolin 2 GM/D5W 50 ML 2 GM/50 ML BAG IVPB (07:52)
[2024-10-30] MEDS: BUPivacaine HCL 0.5% 10 ML AMP 30 ML INFILTRATE (07:57)
[2024-10-30] MEDS: LIDO 1%/EPINEPHRINE 1:100,000 50 ML VIAL 30 ML INFILTRATE (07:58)
[2024-10-30] MEDS: ceFAZolin SODIUM 1 GM VIAL IV PUSH (10:45)
--- NOTE | 2024-10-30 13:04 | PM.OP ---
Procedure Note - Brief Procedure Note - Brief Date of procedure: 10/30/24 Reducible incisional hernias x2 Post-op diagnosis: Other (Incarcerated incisional port site hernias x 3) Procedure performed: Robotic assisted laparoscopic incarcerated incisional port site hernia repairs x3 with preperitoneal placement of Bard soft mesh. Surgeon: Rolando Vallecillo MD Anesthesia: GETA Implants: Bard soft mesh x2 Estimated blood loss (mL): 50 Drains: No Packing: No Pathology: None sent Complications: No immediate complications Condition: Stable Disposition: PACU
[2024-10-30] MEDS: fentaNYL CITRATE INJ (*CRX) 100 MCG/2 ML VIAL 25 MCG IV PUSH ×8 (13:06→15:45)
[2024-10-30] MEDS: HYDROmorphone HCL INJ (*CRX) 1 MG/ML SYR 0.25 MG IV PUSH ×2 (16:10→16:15)
[2024-10-30] MEDS: ONDANSETRON INJ 4 MG/2 ML VIAL IV PUSH (17:17)
[2024-10-30] MEDS: IBUPROFEN IV 800 MG/200 ML 800 MG/200 ML BAG 400 MG IVPB (18:05)
--- NOTE | 2024-10-30 18:28 | ADMGEN ---
This patient, Heaven Elena, was admitted to 3 Med Surg Room 302-01. Patient/family oriented to hospital policies and general routines including ID bracelet, bed and alarms, visiting hours, pain management, procedures, bathroom and other care routines, personal items, smoking policy, room service/diet, and visiting hours. Information on how to activate the Rapid Response Team has been discussed. Patient/Family are encouraged to report perceived risks to care and to ask questions if they do not understand what they are told or what they should do.
[2024-10-30] MEDS: oxyCODONE HCL (*CRX) 5 MG TAB IR PO (20:15)
[2024-10-30] MEDS: DOCUSATE SODIUM 100 MG CAPSULE PO (20:16)
[2024-10-31] VITALS (7 sets, daily range): BP systolic 109–133; BP diastolic 56–79; PULSE 69–84; RESP 14–20; TEMP 36.2–36.8; O2SAT 92–98
[2024-10-31] MEDS: IBUPROFEN IV 800 MG/200 ML 800 MG/200 ML BAG 200 MG IVPB ×3 (02:01→17:34)
[2024-10-31] MEDS: diazePAM INJ (*CRX) 10 MG/2 ML SYRINGE 5 MG IV PUSH ×2 (06:05→18:09)
[2024-10-31] MEDS: oxyCODONE HCL (*CRX) 5 MG TAB IR PO ×3 (06:54→21:59)
[2024-10-31] MEDS: DOCUSATE SODIUM 100 MG CAPSULE PO ×2 (08:12→20:30)
[2024-10-31] MEDS: PANTOPRAZOLE 40 MG TABLET PO (08:12)
[2024-10-31] MEDS: SERTRALINE HCL 25 MG TABLET PO (08:12)
[2024-10-31] MEDS: ENOXAPARIN 40 MG/0.4 ML SYRINGE SUB-Q (08:17)
[2024-10-31 10:35] LABS: Estimated Glomerular Filt Rate > 60
--- NOTE | 2024-10-31 11:04 | W.PM.PROC2 ---
Procedure Note - Detailed Date of Procedure 10/30/24 Pre-op Diagnosis Reducible Port Site Ventral Incisional Hernia X 2 Post-op Diagnosis Other ( incarcerated port site incisional hernias times 4.) Procedure Performed Robotic assisted laparoscopic incarcerated incisional hernia repair x3 with preperitoneal placement of Bard soft mesh, primary repair of incarcerated port site incisional hernia x1. Surgeon Rolando Vallecillo MD [employer] [facility] [place] Anesthesia General Indications The patient is a 43-year-old female he does have morbid obesity. She had undergone a prior laparoscopic sacral colpopexy and hysterectomy. She has developed port site incisional hernia the periumbilical region and left upper quadrant abdominal wall. She presents now for repair. Findings Upon entering the abdomen and establishing a pneumoperitoneum. I was able to assess all the incisional hernias. The patient actually had 4 port site incisional hernias. One was located in the epigastric region and the area the falciform ligament. A 2nd incisional hernia was noted to be in the left upper quadrant abdominal wall. A 3rd incisional hernias noted be in the periumbilical region. Lastly a 4th small incisional hernia was low in the lower midline. All of these incisional hernias had either small portions of the omentum or preperitoneal fat incarcerated within the hernia defects. The defect in the left upper quadrant abdominal wall was 1.0x0.5cm. It had incarcerated omentum within it. There was an epigastric incisional hernia in the area the falciform ligament which was 2x2cm. This had incarcerated falciform ligament within it. There was a 2x1.5cm periumbilical port site incisional hernia containing preperitoneal fat. Lastly there was a lower midline incisional hernia measuring 1 x 1 cm containing incarcerated preperitoneal fat in the hernia. The distance between the left upper quadrant port site hernia and the midline hernias was approximately 15cm. The distance between the epigastric incisional hernia in the periumbilical incisional hernia was about 6cm. The distance between the periumbilical incisional hernia and the lower midline abdominal incisional hernia was approximately 5cm. The lower midline incisional hernia was very small was closed with a #1 absorbable PDS suture primarily without the use of mesh. All of the other incisional hernias were closed with#1 absorbable PDS sutures and then reinforced in a trans abdominal preperitoneal placement (CHRISTIAN) of mesh via laparoscopic robotic assisted approach. One piece of Bard soft mesh measuring 3x3cm was used to reinforce the left upper quadrant hernia site and another piece of Bard soft mesh measuring 7.5x15cm was used to reinforce the hernias in the epigastric and periumbilical regions of the abdomen. Description of Procedure After informed consent was obtained patient brought to the operating room she was placed supine position and general endotracheal anesthesia was administered. A Reddy catheter was placed to decompress the bladder. An orogastric tube was placed decompress the stomach. The abdomen was then prepped and draped usual sterile fashion. A time-out was then performed correctly identifying the patient as well as procedure to be performed. She was given perioperative IV antibiotics. A gain access into the abdomen by placing a 10mm Optiview port in the right upper quadrant under direct visualization. Once inside the abdomen insufflated to adequate pneumoperitoneum of 15mmHg of CO2. I was then able to perform a laparoscopic evaluation of the hernia defect. He actually had 4 hernia defects instead of just 2 as noted preoperatively. The 1st defect was at the mid epigastric region at the insertion site of the falciform ligament where there was a 2x2cm port site hernia. The 2nd hernia defect was in the left upper quadrant abdominal wall which measured approximately 1x0.5cm. The 3rd port site incisional hernia was located the periumbilical region this measured approximately 2x1.5cm. Lastly there was a 1x1cm hernia defect in the lower midline. All these hernia defects had incarcerated omentum or preperitoneal fat within them. I then placed additional robotic trocar ports along the right lateral abdominal wall. The [employer] robot was then brought to the patient's bedside and docked to the patient's left side. The robotic arms were then attached the robotic ports and then robotic instruments were advanced into the abdomen under direct visualization. I then scrubbed out the procedure sent down the robotic console to perform the dissection. I 1st reduced the omentum incarcerated within the left upper quadrant port site incisional hernia. This was done robotic Endo-KENDRICK lesly. I then proceeded to developed a preperitoneal flap at this left upper quadrant defect with sharp scissor robotic dissection and energized sharp scissor dissection. Once this flap was developed on the to get overlap of at least 3cm over the closed defect I then turned my attention to the other defects. As all the other defects were in the midline at the linea alba I then created a preperitoneal flap along the whole midline for a length to expose all 3 of the midline defects. This is done by incised the peritoneum on the right abdominal wall extending this dissection is preperitoneal plane across the midline. I reduced the preperitoneal fat at of all 3 of these incarcerated hernia defects in the midline. The preperitoneal dissection was carried across the midline to the left abdominal wall. After I felt I had at least 5cm of flap dissected laterally of all the defects as well as 5cm superior inferior to the defects I then proceeded to close all of the midline port site incisional hernia defect utilizing #1 absorbable PDS sutures. The small defect in the lower midline was closed primarily with the suture. The periumbilical and the epigastric defects were closed with the same type of suture but then were reinforced with a piece of Bard soft mesh in the preperitoneal onlay position. I 1st started by cutting a piece of Bard soft mesh which was 3x3cm. It was then placed into the preperitoneal pocket over the closed defect in left upper quadrant. It was sutured in circumferentially with placement absorbable 2-0 absorbable V lock suture. The mesh was secured nicely without any tension. I then closed the peritoneal flap over the mesh utilizing interrupted 3-0 Vicryl sutures. The mesh was completely covered with peritoneum and excluded from the abdominal viscera. I then cut a piece of Bard soft mesh measuring 7.5cm in width by 15cm in length and then placed it in the preperitoneal onlay position of the midline of the abdominal wall to widely cover the 2 closed defects at the epigastric and periumbilical positions. The mesh was then secured in the preperitoneal space to the undersurface of the anterior abdominal wall with running absorbable 2-0 V lock sutures. The mesh was secured well without any tension. I then closed the peritoneum over the mesh utilizing a running 2-0 absorbable V lock suture. This piece of mesh was then completely excluded from the intra-abdominal viscera as well. Then checked and there was no active bleeding from any sites. Small amount of blood clot was aspirated from the abdomen. I then checked the undersurface anterior abdominal wall there were no holes holes in the peritoneum anywhere to allow bowel to touch any of the placed mesh. I then had the de Torito instruments removed from the abdomen and the robot undocked from the patient's bedside. I then scrubbed back into the procedure and then closed all of the new robotic and bedside assistant professor of business trocar port sites with placement of transfascial 0 Vicryl sutures placed laparoscopically. The sutures were tied down and defect were closed after decompression of the abdomen. All the port sites were removed. All the port sites were hemostatic. I irrigated out the port sites sterile saline solution hemostasis was good. I then closed all the port site at the skin level utilizing a running subcuticular 4 Monocryl suture. Incisions were cleaned the skin glue and sterile dressings were applied. Abdominal binder was placed. At the end the procedure the orogastric tube and Reddy catheter were removed. The patient tolerated the procedure well no complications. All sponges, needles, and instrument counts were correct at the end procedure. EBL was ___cc. The patient was awakened and taken to recovery in stable and satisfactory condition.
--- NOTE | 2024-10-31 19:25 | WPDPN ---
Progress Note: A&P Assessment and Plan (1) Incisional hernia: Qualifiers: Obstruction and gangrene presence: without obstruction or gangrene Qualified Code(s): K43.2 - Incisional hernia without obstruction or gangrene Code(s): K43.2 - Incisional hernia without obstruction or gangrene Status: Acute Assessment and Plan: Still having significant postoperative pain after her robotic assisted laparoscopic port site incisional hernia repairs with mesh yesterday. She is still requiring dose of IV Dilaudid today. Will try to get transition to oral pain medications for pain and get her to ambulate and sit up in chair quite a bit. Hopefully she will feel better tomorrow and be well controlled on oral pain medications and hopefully can be discharged home tomorrow. Otherwise her incisions seem to be healing well. Continue wearing the abdominal binder. DVT prophylaxis with Lovenox and SCDs. (2) Umbilical hernia: Code(s): K42.9 - Umbilical hernia without obstruction or gangrene Status: Acute Subjective Date/time seen: 10/31/24 19:25 Interval history: Patient is postop day 1 after robotic assisted laparoscopic port site incisional hernia repairs x4 with mesh. She is still pretty sore today. She did get IV Dilaudid for pain is morning. She is getting and can go urinate in the man 3 and otherwise is not ambulating much yet. She is tolerating solid food. No fever. Exam GI: Other: Abdomen is soft and obese. Moderate tenderness to palpation throughout. Incision seems to be healing well. Exam is consistent with postoperative pain after her surgery yesterday. Objective Data Vital Signs Vital Signs: Vital Signs - 24 hr 10/30/24 20:00 10/30/24 20:10 10/30/24 22:20 Temperature 36.2 C L Pulse Rate 85 73 Respiratory Rate 16 23 H Blood Pressure 127/69 Pulse Oximetry 100 96 Oxygen Delivery Room Air CPAP 10/31/24 00:10 10/31/24 04:10 10/31/24 08:00 Temperature 36.8 C 36.2 C L Pulse Rate 69 70 Respiratory Rate 18 20 Blood Pressure 122/59 L 128/63 Pulse Oximetry 98 98 Oxygen Delivery Room Air 10/31/24 08:10 10/31/24 12:10 10/31/24 16:10 Temperature 36.5 C 36.4 C 36.4 C Pulse Rate 78 70 77 Respiratory Rate 18 18 18 Blood Pressure 127/79 109/56 L 126/65 Pulse Oximetry 92 98 98 Oxygen Delivery Intake/Output Intake/Output: Intake & Output 10/28/24 10/29/24 10/30/24 10/31/24 23:59 23:59 23:59 23:59 Intake Total 950 1620 Balance 950 1620 Meds/Results Medications: Active Medications Generic Name Dose Route Start Last Admin Trade Name Freq PRN Reason Stop Dose Admin Acetaminophen 1,000 mg 10/30/24 16:50 10/30/24 20:15 Acetaminophen 500 Mg Tablet PO 1,000 mg Q6H PRN Administration Mild Pain (1-3) or Fever Hydrocodone Bitart/Acetaminophen 1 tab 10/30/24 16:50 Hydrocodone/Acetaminophen (*Crx) 5-325 Mg Tablet PO Q4H PRN Pain Rated 4-6 Diazepam 5 mg 10/31/24 06:00 10/31/24 18:09 Diazepam Inj (*Crx) 10 Mg/2 Ml Syringe IV PUSH 5 mg 0600,1800 GEOVANY Administration Docusate Sodium 100 mg 10/30/24 21:00 10/31/24 08:12 Docusate Sodium 100 Mg Capsule PO 100 mg Q12HR GEOVANY Administration Enoxaparin Sodium 40 mg 10/31/24 09:00 10/31/24 08:17 Enoxaparin 40 Mg/0.4 Ml Syringe SUB-Q 40 mg DAILY GEOVANY Administration Hydromorphone HCl 1 mg 10/30/24 16:50 Hydromorphone Hcl Inj (*Crx) 1 Mg/Ml Syr IV PUSH Q4H PRN Pain Rated 7-10 Ibuprofen 800 mg in 200 mls @ 400 mls/hr 10/30/24 18:00 10/31/24 18:24 Caldolor 800 Mg/200 Ml IVPB 11/01/24 10:29 Infused Q8H GEOVANY Infusion Ondansetron HCl 4 mg 10/30/24 16:50 10/30/24 17:17 Ondansetron Inj 4 Mg/2 Ml Vial IV PUSH 4 mg Q6H PRN Administration Nausea And Vomiting Oxycodone HCl 5 mg 10/30/24 16:50 10/31/24 15:23 Oxycodone Hcl (*Crx) 5 Mg Tab Ir PO 5 mg Q4H PRN Administration Pain Rated 7-10 Pantoprazole Sodium 40 mg 10/31/24 09:00 10/31/24 08:12 Pantoprazole 40 Mg Tablet PO 40 mg QAM GEOVANY Administration Sertraline HCl 25 mg 10/31/24 09:00 10/31/24 08:12 Sertraline Hcl 25 Mg Tablet PO 25 mg DAILY GEOVANY Administration Labs Labs: Laboratory Results - last 24 hr 10/31/24 10:12 Creatinine 0.70 Estim Creat Clear Calc Not Reportable Estimated GFR > 60
--- NOTE | 2024-10-31 23:21 | PC.NURSE ---
Addendum entered by Christiana Ybarra RN 11/01/24 01:57: Pt is now wearing the CPAP and sleeping. Original Note: Pt said that the hospital provided CPAP machine was, too uncomfortable, and is refusing to use it. Pt was offered for respirtory to come and adjust the mask and she refused. She was educated about the CPAP and still refused to wear it.
[2024-11-01] MEDS: IBUPROFEN IV 800 MG/200 ML 800 MG/200 ML BAG 200 MG IVPB ×2 (01:20→08:33)
[2024-11-01] MEDS: oxyCODONE HCL (*CRX) 5 MG TAB IR PO (03:29)
[2024-11-01] MEDS: diazePAM INJ (*CRX) 10 MG/2 ML SYRINGE 5 MG IV PUSH ×2 (05:41→17:49)
[2024-11-01 06:00] VITALS: BP 124/67; PULSE 75; RESP 14; TEMP 36.2; O2SAT 99
[2024-11-01 08:26] VITALS: O2SAT 97
[2024-11-01] MEDS: DOCUSATE SODIUM 100 MG CAPSULE PO ×2 (08:33→20:44)
[2024-11-01] MEDS: PANTOPRAZOLE 40 MG TABLET PO (08:33)
[2024-11-01] MEDS: ENOXAPARIN 40 MG/0.4 ML SYRINGE SUB-Q (08:33)
[2024-11-01] MEDS: SERTRALINE HCL 25 MG TABLET PO (08:33)
--- NOTE | 2024-11-01 09:22 | PC.NURSE ---
Patient resting in bed for BSR. She was able to ambulate to the restroom slowly, but without difficulty or assistence. Patient in good spirits but in significant pain. Patient back to bed, call light and bedside tray within reach and no further needs at this time.
[2024-11-01] MEDS: HYDROcodone/acetaminophen (*CRX) 5-325 MG TABLET 1 TAB PO ×2 (11:19→20:46)
--- NOTE | 2024-11-01 12:37 | WPDPN ---
Progress Note: A&P Assessment and Plan (1) Umbilical hernia: Code(s): K42.9 - Umbilical hernia without obstruction or gangrene Status: Acute Assessment and Plan: Encouraged patient to get up and sit up on the chair as much as possible and then ambulate with assistance in the hallways. Will stop IV medications for pain and relying on oral pain medications for control of pain. Hopefully she will be completely controlled with oral pain medications brought to be discharged home. Start some stool softeners. Switch her IV ibuprofen over the oral ibuprofen. (2) Incisional hernia: Qualifiers: Obstruction and gangrene presence: without obstruction or gangrene Qualified Code(s): K43.2 - Incisional hernia without obstruction or gangrene Code(s): K43.2 - Incisional hernia without obstruction or gangrene Status: Acute Plan Subjective Date/time seen: 11/01/24 12:37 Interval history: Patient still complains of having pretty severe abdominal pain from her incisions. Has not been sitting up in a chair has been lying in bed quite a bit. She does get up to ambulate to the bathroom to urinate. Has not had a bowel movement. No fever. Tolerating some solid food but does not have much of an appetite. Exam GI: Other: Abdomen is obese and mildly distended. The abdomen is soft. Diffuse expected tenderness around the areas of the hernia repairs and port site incisions. Incisions are all clean and dry without redness or drainage. Objective Data Vital Signs Vital Signs: Vital Signs - 24 hr 10/31/24 16:10 10/31/24 20:10 10/31/24 22:20 Temperature 36.4 C 36.3 C L Pulse Rate 77 84 81 Respiratory Rate 18 14 20 Blood Pressure 126/65 133/67 Pulse Oximetry 98 98 98 Oxygen Delivery CPAP Fraction of Inspired Oxygen 11/01/24 06:00 11/01/24 08:26 Temperature 36.2 C L Pulse Rate 75 Respiratory Rate 14 Blood Pressure 124/67 Pulse Oximetry 99 97 Oxygen Delivery Room Air Fraction of Inspired Oxygen 21 Intake/Output Intake/Output: Intake & Output 10/29/24 10/30/24 10/31/24 11/01/24 23:59 23:59 23:59 23:59 Intake Total 950 1620 1640 Balance 950 1620 1640 Meds/Results Medications: Active Medications Generic Name Dose Route Start Last Admin Trade Name Freq PRN Reason Stop Dose Admin Acetaminophen 1,000 mg 10/30/24 16:50 10/30/24 20:15 Acetaminophen 500 Mg Tablet PO 1,000 mg Q6H PRN Administration Mild Pain (1-3) or Fever Hydrocodone Bitart/Acetaminophen 1 tab 10/30/24 16:50 11/01/24 11:19 Hydrocodone/Acetaminophen (*Crx) 5-325 Mg Tablet PO 1 tab Q4H PRN Administration Pain Rated 4-6 Diazepam 5 mg 10/31/24 06:00 11/01/24 05:41 Diazepam Inj (*Crx) 10 Mg/2 Ml Syringe IV PUSH 5 mg 0600,1800 GEOVANY Administration Docusate Sodium 100 mg 10/30/24 21:00 11/01/24 08:33 Docusate Sodium 100 Mg Capsule PO 100 mg Q12HR GEOVANY Administration Enoxaparin Sodium 40 mg 10/31/24 09:00 11/01/24 08:33 Enoxaparin 40 Mg/0.4 Ml Syringe SUB-Q 40 mg DAILY GEOVANY Administration Hydromorphone HCl 1 mg 10/30/24 16:50 Hydromorphone Hcl Inj (*Crx) 1 Mg/Ml Syr IV PUSH Q4H PRN Pain Rated 7-10 Ondansetron HCl 4 mg 10/30/24 16:50 10/30/24 17:17 Ondansetron Inj 4 Mg/2 Ml Vial IV PUSH 4 mg Q6H PRN Administration Nausea And Vomiting Oxycodone HCl 5 mg 10/30/24 16:50 11/01/24 03:29 Oxycodone Hcl (*Crx) 5 Mg Tab Ir PO 5 mg Q4H PRN Administration Pain Rated 7-10 Pantoprazole Sodium 40 mg 10/31/24 09:00 11/01/24 08:33 Pantoprazole 40 Mg Tablet PO 40 mg QAM GEOVANY Administration Sertraline HCl 25 mg 10/31/24 09:00 11/01/24 08:33 Sertraline Hcl 25 Mg Tablet PO 25 mg DAILY GEOVANY Administration
[2024-11-01 14:00] VITALS: BP 126/71; PULSE 76; RESP 18; TEMP 36.4; O2SAT 100
[2024-11-01] MEDS: IBUPROFEN 600 MG TABLET PO ×2 (16:23→23:13)
[2024-11-01] MEDS: WATER FOR IRRIGATION, STERILE 500 ML BOTTLE (20:44)
[2024-11-01 21:02] VITALS: BP 136/74; PULSE 77; RESP 20; TEMP 36.4; O2SAT 99
[2024-11-01 23:26] VITALS: PULSE 75; RESP 19; O2SAT 97
[2024-11-02] MEDS: HYDROcodone/acetaminophen (*CRX) 5-325 MG TABLET 1 TAB PO ×2 (01:26→08:15)
[2024-11-02 03:04] VITALS: PULSE 73; RESP 20
[2024-11-02] MEDS: IBUPROFEN 600 MG TABLET PO ×2 (05:16→13:57)
[2024-11-02 05:44] VITALS: BP 137/81; PULSE 74; RESP 16; TEMP 36.3; O2SAT 100
[2024-11-02] MEDS: diazePAM INJ (*CRX) 10 MG/2 ML SYRINGE 5 MG IV PUSH (05:52)
[2024-11-02] MEDS: PANTOPRAZOLE 40 MG TABLET PO (08:15)
[2024-11-02] MEDS: SERTRALINE HCL 25 MG TABLET PO (08:15)
[2024-11-02] MEDS: DOCUSATE SODIUM 100 MG CAPSULE PO (08:15)
[2024-11-02] MEDS: ENOXAPARIN 40 MG/0.4 ML SYRINGE SUB-Q (08:15)
[2024-11-02] MEDS: oxyCODONE HCL (*CRX) 5 MG TAB IR PO (10:26)
[2024-11-02 14:00] VITALS: BP 141/61; PULSE 60; RESP 18; TEMP 35.9; O2SAT 100
--- NOTE | 2024-11-02 14:41 | P.DS_ITS ---
DS: Admitting Diagnosis Discharge Date 11/02/24 Admitting Diagnosis Reducible incisional hernia x 2 Morbid obesity DS: Discharge Diagnosis Discharge Diagnosis (1) Incisional hernia: Qualifiers: Obstruction and gangrene presence: without obstruction or gangrene Qualified Code(s): K43.2 - Incisional hernia without obstruction or gangrene Code(s): K43.2 - Incisional hernia without obstruction or gangrene Status: Acute (2) Morbid obesity: Code(s): E66.01 - Morbid (severe) obesity due to excess calories Status: Acute DS: Summary Hospital Course Reason for hospitalization: Ms. Raines was evaluated in the office by Dr. Vallecillo for an umbilical and left abdominal wall incisional hernia. She had an outpatient CT scan which showed a small fat-containing ventral hernia superior to the umbilicus and a small fat- containing umbical hernia. She had tenderness associated with the umbilical hernia, but otherwise no additional symptoms. Discussions were had with the patient in the office and decision made to proceed with laparoscopic incisional hernia repair electively. Hospital Course: She underwent robotic assisted laparoscopic incarcerated incisional hernia repair x3 with preperitoneal placement of Bard soft mesh, primary repair of incarcerated port site incisional hernia x1 by Dr. Vallecillo on 10/30/24. She was monitored following surgery and had issues with postoperative pain control that was requiring IV analgesics. Her activity was slowly increased as tolerated. She was eventually transitioned off the IV analgesics to oral analgesics, which she has been doing well with over the past 24 hours. She is also receiving Valium for muscle spasms. She is tolerating activity and voiding without any difficulty. She is passing flatus and had one documented bowel movement since surgery. She reportedly is tolerating a diet. After discussing with Dr. Vallecillo today, the patient appears stable for discharge home with oral analgesics. Discharge instructions were discussed in detail. She will follow-up with Dr. Vallecillo as scheduled. Status at Discharge Functional status at discharge: independent ambulation Overall status at discharge: patient is progressing back to baseline Time Spent with Patient Time attestation: Total time spent providing and/or coordinating discharge services: Time spent: Less than 30 minutes Exam Const: General: comfortable and no acute distress Nutritional Appearance: obese Orientation/consciousness: patient oriented x3 GI: Inspection: non-distended, incision (incisions dry and glue intact, no erythema or drainage) and obesity GI Palp: Yes Soft to palpation, Yes Tend erness to palpation present (GI) (expected incisional tenderness) and No Guarding due to palpation present (GI) Auscultation: normal bowel sounds Neuro: General: moves all extremities and no focal motor deficits Extrem: General: no calf tenderness and no edema Psych: Mental Status: mental status grossly normal Insight: Good insight present (Psych) DS: Data Procedures/Treatments: Procedures Operation Date: 10/30/24 07:30 Actual Procedure Side Surgeon p Robotic Assisted Laparoscopic Port Site Incisional Hernia Repair Times Two with Mesh (Lateral Abdominal Wall and Periumbilical) Not Applicable Rolando Vallecillo MD Discharge Plan Discharge Attending physician on discharge: Rolando Vallecillo Discharging Clinician: Heidi Castillo Anticipated Discharge Date/Time: 11/02/24 14:51 Patient Disposition: Home, Self-Care Activity: may shower, no straining, no driving and other - see discharge instructions Diet: as tolerated Wound Care Instructions: incision open to air Discharge Instructions: May discharge home with stable. Follow-up in the office with Dr. Vallecillo in 2 weeks. Patient to call [phone] for an appointment. No lifting more than 5 to 10 lb for 4 to 6 weeks. If abdominal binder is in place than where night and day for 2 weeks. May remove abdominal binder to shower. May shower 24hours after surgery but no soaking of the incisions under water for 2 weeks. Resume all home medications and a prescription for narcotic pain medications will be sent to the patient's pharmacy if needed. May use Tylenol and/or ibuprofen in addition to or in place of narcotic pain medications. Patient Language: Upper Sorbian Stand Alone Forms: General Discharge Instructions Follow-up/Referrals: Rolando Vallecillo MD [Physician] - Discharge Medications: New oxycodone 5 mg tablet 5 mg PO Q4H PRN (Reason: pain) Qty: 30 0RF docusate sodium [Colace] 100 mg capsule 100 mg PO BID Qty: 30 2RF diazepam 5 mg tablet 5 mg PO BID PRN (Reason: muscle spasm) Qty: 10 0RF Continued sertraline 25 mg tablet 25 mg PO DAILY Date of admission: 10/31/24 19:32 Primary Care Provider: Maximo Montes Admitting Provider: Rolando Vallecillo Attending physician on admission: Rolando Vallecillo Condition: Stable Quality VTE Prophylaxis VTE prophylaxis: mechanical ordered and pharmacologic ordered
== END 2024-11-02 15:45 | disposition home or self-care (01) | DRG 227 ==
LOC: ANHSURGERY 17:27 → ANH3MEDSUR 17:27
PROVIDERS: Admitting Provider Surgery; PCP Emergency Medicine; Visit Provider Nurse Practitioner Family
DX: K43.0 Incisional hernia with obstruction, without gangrene (principal); K42.0 Umbilical hernia with obstruction, without gangrene; E66.01 Morbid (severe) obesity due to excess calories; F17.210 Nicotine dependence, cigarettes, uncomplicated
CPT/HCPCS: 36415; 82565; A9270; C1781; G0378; G0379; J0690; J1100; J1171; J1650; J1741; J1885; J2003; J2004; J2250; J2270; J2405; J2704; J3010; J3360; J7030; J7120

== ENCOUNTER 2024-12-23 21:07 | Inpatient (IN) | payer BC, MEDICAID, SELFPAY ==
--- NOTE | ~2024-12-23 | CT_ITS ---
CT of the Abdomen and Pelvis: Indication: Abdominal abscess Technique: 2.5 mm axial scans were obtained through the abdomen and pelvis following intravenous adm inistration of 100 cc of Omnipaque 350. Dose reduction technique was used on this scan by utilizing a utomated exposure control and iterative reconstruction technique. The dose-length product (DLP) was 1 271.15 mGy-cm. COMPARISON: 07/30/2024 Findings: Scans through the lung bases are unremarkable. The liver, spleen, pancreas, adrenals and kidneys are within normal limits. Multiple calcified gallst ones are present. No evidence of aortic aneurysm. No lymphadenopathy. No bowel obstruction or bowel wall thickening. There is infiltrative change in the anterior subcutane ous soft tissues about the umbilicus. Questionable focal wound at the umbilicus. Possible small subcu taneous abscess the umbilicus measuring 2.4 x 0.8 cm.. Images through the pelvis were performed. Urinary bladder unremarkable. No pelvic mass seen. No ascit es. Impression: Wound at the umbilicus with possible 2.4 x 0.8 cm early abscess or phlegmon with surrounding infiltra tive/inflammatory changes. Cholelithiasis. Reviewed, dictated and finalized at [facility]. TER COORDINATOR Impression: Wound at the umbilicus with possible 2.4 x 0.8 cm early abscess or phlegmon wit h surrounding infiltrative/inflammatory changes. Cholelithiasis.
--- OUTSIDE RECORDS SUMMARY | 2024-12-23 21:12 | XMS_ITS | Patient Health Summary ---
Author Organization [facility] Address [address] [place] [address] Care Team Providers Care Padding Gluer Name Role Phone [facility] Primary Care P rovider Note from [facility],non-owned Affiliates and Associated Physician Practices is amultiple site organization consisting of ambulatory clinics and hospital sitesin [place], [place], [place] and [place]. This disclosure is being madepursuant to the Care Everywhere program and may not contain all information available regarding this patient. Last updated 18.[facility] Allergies * Penicillins Medications * Be aware that medications may not be up to date on this document. Alwaysverify current medications with the patient. * naproxen (NAPROSYN) 500 MG tablet(Started 09/11/2017) Take 1 tablet by mouth 2 times daily as needed for Pain Social History Tobacco Use Types Packs/Day Years Used Date Smoking Tobacco: Every Day Smokeless Tobacco: Never Alcohol Use Standard Drinks/Week Comments Yes 0 (1 standard drink = 0.6 oz pur e alcohol) socially Sex and Gender Information Value Date Recorded Sex Assigned at Not on file Gender Identity Not on file Sexual Orientation Not on file Last Filed Vital Signs Vital Sign Reading Time Taken Comments Blood Pressure 120/75 09/11/2017 9:19 PM CDT Pulse 69 09/11/2017 9:20 PM CDT Temperature 36.9 C (98.5 F) 09/11/2017 9:19 PM CDT Respiratory Rate 14 09/11/2017 9:20 PM CDT Oxygen Saturation 100% 09/11/2017 9:19 PM CDT Inhaled Oxygen Concentration - - Weight 81.6 kg (180 lb) 09/11/2017 7:19 PM CDT Height 149.9 cm (4' 11 ) 09/11/2017 7:19 PM CDT Body Mass Index 36.36 09/11/2017 7:19 PM CDT Procedures * TYPE + SCREEN PANEL(Performed 09/11/2017) * URINALYSIS REFLEX MICROSCOPIC REFLEX CULTURE(Performed 09/11/2017) * HCG URINE QUALITATIVE(Performed 09/11/2017) * CULTURE URINE(Performed 09/11/2017) * HCG BETA BLOOD QUANTITATIVE(Performed 09/11/2017) * CBC W AUTO DIFFERENTIAL(Performed 09/11/2017) * BASIC METABOLIC PANEL (CALCIUM TOTAL)(Performed 09/11/2017) Results * TYPE + SCREEN PANEL (09/11/2017 10:16 PM CDT) ABO O 09/11/2017 10:57 PM CDT [facility] Rh Type Positive 09/11/2017 10:57 PM CDT [facility] Comment:History check perfor med. Retype required. Antibody Screen Negative 09/11/2017 10:57 PM CDT [facility] Blood Bank BLOOD SPECIMEN / Unknown Venipuncture / Unknown 09/11/2017 10:16 PM CDT 09/11/2017 10:21 PM CDT Navi Winter MD LAB - BLOOD BANK ORD ERABLES [facility] [address] [place] [address] * (ABNORMAL) URINALYSIS ROUTINE W/REFLEX TO CULTURE (09/11/2017 9:57 PM CDT) Color UA Yellow Straw, Yellow, Dark Yellow 09/11/2017 10:10 PM CDT [facility] Clarity UA Cloudy 09/11/2017 10:10 PM CDT [facility] Specific Gleason UA 1.023 1.005 - 1.030 09/11/2017 10:10 PM CDT [facility] pH UA 6.0 5.0 - 8.0 pH 09/11/2017 10:10 PM CDT [facility] Protein UA Trace(A) Negative 09/11/2017 10:10 PM CDT [facility] Blood UA 3+(A) Negative 09/11/2017 10:10 PM CDT [facility] Leukocyte UA Trace(A) Negative 09/11/2017 10:10 PM CDT [facility] Nitrite UA Negative Negative 09/11/2017 10:10 PM CDT [facility] Glucose UA Negative Negative 09/11/2017 10:10 PM CDT [facility] Ketone UA Negative Negative 09/11/2017 10:10 PM CDT [facility] Bilirubin UA Negative Negative 09/11/2017 10:10 PM CDT [facility] Urobilinogen UA 0.2 0.1 - 1.0 EU/dL 09/11/2017 10:10 PM CDT [facility] WBC UA Auto 2-5 0-2, 2-5 # /hpf 09/11/2017 10:10 PM CDT [facility] RBC UA Auto >100(A) 0-2, 2-5 # /hpf 09/11/2017 10:10 PM CDT [facility] Epithelial Cell UA Auto 2-5 0-2, 2-5 # /hpf 09/11/2017 10:10 PM CDT [facility] Reflex Status Culture to follow 09/11/2017 10:10 PM CDT [facility] Urine URINE SPECIMEN COLLECTION, CATHETERIZED / Unknown Collection / Unknown 09/11/2017 9:57 PM CDT 09/11/2017 10:05 PM CDT Arjun Smart MD LAB - URINALYSIS ORD ERABLES [facility] [address] [place] [address] * (ABNORMAL) HCG URINE QUALITATIVE (09/11/2017 9:57 PM CDT) hCG Qualitative Urine Positive( A) Negative 09/11/2017 10:12 PM CDT [facility] Urine URINE / Unknown Collection / Unknown 09/11/2017 9:57 PM CDT 09/11/2017 10:05 PM CDT Arjun Smart MD LAB - URINALYSIS ORD ERABLES [facility] [address] [place] [address] * CULTURE URINE (09/11/2017 9:57 PM CDT) Pathologist [facility] Culture Urine 50,000-100,000 CFU/mL urogenital sharon CAM 09/13/2017 11:59 AM CDT [facility] Urine URINE SPECIMEN COLLECTION, CATHETERIZED / Unknown Collection / Unknown 09/11/2017 9:57 PM CDT 09/11/2017 10:05 PM CDT Arjun Smart MD LAB - MICROBIOLOGY O RDERABLES [facility] [address] [phone] * (ABNORMAL) CBC W AUTO DIFFERENTIAL (09/11/2017 7:27 PM CDT) Pathologist [facility] WBC 8.4 4.4 - 10.7 x10E9/L 09/11/2017 7:36 PM CDT [facility] WBC Corrected x10E9/L 09/11/2017 7:36 PM CDT [facility] RBC 5.07 3.80 - 5.20 x10E12/L 09/11/2017 7:36 PM CDT [facility] Hemoglobin 13.5 12.0 - 15.6 gm/dL 09/11/2017 7:36 PM CDT [facility] Hematocrit 41.0 35.9 - 45.5 % 09/11/2017 7:36 PM CDT [facility] MCV 80.9 80.7 - 98.3 fl 09/11/2017 7:36 PM CDT [facility] MCH 26.6(L) 26.7 - 34.0 pg 09/11/2017 7:36 PM CDT [facility] MCHC 32.9 30.8 - 35.9 gm/dL 09/11/2017 7:36 PM CDT [facility] Platelet Count 285 153 - 416 x10E9/L 09/11/2017 7:36 PM CDT [facility] RDW-CV 15.9(H) 12.1 - 14.9 % 09/11/2017 7:36 PM CDT [facility] MPV 9.7 9.4 - 12.9 fl 09/11/2017 7:36 PM CDT [facility] Neutrophils % 57.6 44.0 - 73.0 % 09/11/2017 7:36 PM CDT [facility] Lymphocytes % 28.0 20.0 - 43.0 % 09/11/2017 7:36 PM CDT [facility] Monocytes % 6.5 5.0 - 13.0 % 09/11/2017 7:36 PM CDT [facility] Eosinophils % 7.0(H) 0.0 - 6.0 % 09/11/2017 7:36 PM CDT [facility] Basophils % 0.5 0.0 - 2.0 % 09/11/2017 7:36 PM CDT [facility] Immature Granulocytes 0.4 0 - 1 % 09/11/2017 7:36 PM CDT [facility] Neutrophil Absolute 4.84 2.01 - 7.14 x10E9/L 09/11/2017 7:36 PM CDT [facility] Lymphocytes Absolute 2.35 1.07 - 3.94 x10E9/L 09/11/2017 7:36 PM CDT [facility] Monocytes Absolute 0.55 0.26 - 1.07 x10E9/L 09/11/2017 7:36 PM CDT [facility] Eosinophils Absolute 0.59(H) 0 - 0.47 x10E9/L 09/11/2017 7:36 PM CDT [facility] Basophils Absolute 0.04 0 - 0.08 x10E9/L 09/11/2017 7:36 PM CDT [facility] Immature Granulocytes Absolute 0.03 0.00 - 0.06 x10E9/L 09/11/2017 7:36 PM CDT [facility] nRBC Auto 0 /100 WBC 09/11/2017 7:36 PM CDT [facility] Blood BLOOD SPECIMEN / Unknown Venipuncture / Unknown 09/11/2017 7:27 PM CDT 09/11/2017 7:33 PM CDT Arjun Smart MD LAB - HEMATOLOGY ORD ERABLES Performing Organization Address [facility]/ZIP Co de Phone Number [facility] [address] [place], [place] [id number] * (ABNORMAL) BASIC METABOLIC PANEL (CALCIUM TOTAL) (09/11/2017 7:27 PM CDT) [facility] Glucose 99 74 - 106 mg/dL 09/11/2017 7:52 PM CDT [facility] Sodium 140 136 - 145 mmol/L 09/11/2017 7:52 PM CDT [facility] Potassium 4.2 3.5 - 5.1 mmol/L 09/11/2017 7:52 PM CDT [facility] Comment:Specimen slightly he molyzed. Chloride 111(H) 98 - 107 mmol/L 09/11/2017 7:52 PM CDT [facility] CO2 19(L) 22 - 31 mmol/L 09/11/2017 7:52 PM CDT [facility] Calcium 8.6 8.5 - 10.1 mg/dL 09/11/2017 7:52 PM CDT [facility] Anion Gap 10 8 - 16 mmol/L 09/11/2017 7:52 PM CDT [facility] BUN 9 7 - 21 mg/dL 09/11/2017 7:52 PM CDT [facility] Creatinine 0.75 0.50 - 1.30 mg/dL 09/11/2017 7:52 PM CDT [facility] eGFR by MDRD >60 >60 mL/min/1.7 3m2 09/11/2017 7:52 PM CDT [facility] eGFR by MDRD >60 >60 mL/min/1.7 3m2 09/11/2017 7:52 PM CDT [facility] Blood BLOOD SPECIMEN / Unknown Venipuncture / Unknown 09/11/2017 7:27 PM CDT 09/11/2017 7:33 PM CDT Arjun Smart MD LAB - CHEMISTRY AGUILAR PUCKETT [facility] [address] [place], [place] [id number] * HCG BETA BLOOD QUANTITATIVE (09/11/2017 7:27 PM CDT) hCG Quantitative 204 mIU/mL 09/11/20 17 9:57 PM CDT [facility] Blood BLOOD SPECIMEN / Unknown Lab Venipuncture / Unknown 09/11/2017 7:27 PM CDT 09/11/2017 9:41 PM CDT Narrative [facility] - 09/11/2017 9:57 PM CDT hCG Reference Range, mIU/mL: Males 0-2.0 Non Females 0-6.0 Perimenopausal Females ages 41-55* 0-7.7 Postmenopausal Females age >55* 0-14 Females, Weeks after Last Menstrual Period 0.2-1 week 5-50 1 - 2 weeks 50-500 2 - 3 weeks 100-5000 3 - 4 weeks 500-10,000 4 - 5 weeks 1000-50,000 5 - 6 weeks 10,000-100,000 6 - 8 weeks 15,000-200,000 2 - 3 months 10,000-100,000 Trophoblastic Disease >100,000 *In higher than expected hCG in females > age 40, a serum FSH >20 IU/L makes unlikely. Navi Winter MD LAB - CHEMISTRY AGUILAR Salazar Organization Address City/State/ZIP Co de Phone Number [facility] [address] [place], [place] [phone] Care Teams Padding Gluer Relationship Specialty Start Date End Date [facility] [address] [place] [address] PCP - General Wash Oil Pump Operator 09/11/17
--- OUTSIDE RECORDS SUMMARY | 2024-12-23 21:12 | XMS_ITS | CONTINUITY OF CARE DOCUMENT ---
Author Name bryan adams Address Unknown Organization [facility] Address [address] [place] [address] Phone [phone] Care Team Providers Care Barytes Grinder Name Role Phone Onofre Lebron MD Unavailable BRYANT BUTLER MD Unavailable [phone] PROBLEMS Condition Status Date Provider Notes Venous insufficiency active Onofre Barnard IRON DEFICIENCY active Onofre Lebron MD nml b12 Screening active Onofre Lebron MD could no t afford gelacio scopre Obesity active Onofre Lebron MD Tobacco dependence, continuous active Onofre Lebron MD FAMILY HISTORY OF HEART DISEASE active Onofre Lebron MD DAD PACER Exposure to SARS-associated coronavirus;had vaccine active Onofre Lebron MD Hemiblock, left anterior active Onofre hook MD Anxiety disorder active Onofre Lebron MD Vitamin D deficiency active Onofre Barnard Sleep apnea active Onofre Lebron MD Hyperlipidemia;neg crp and lapa 128 active Onofre Lebron MD ENCOUNTERS Date Type Provider Location Encounter Diag nosis - In-person encounter Office Visit Onofre Lebron MD [place] [facility] - In-person encounter Office Visit Onofre Lebron MD [place] [facility] ScreeningHyperlipidemia;neg crp and lapa 128 - In-person encounter Office Visit Onofre Lebron MD [place] [facility] ScreeningObesityTobacco dependence, continuousFAMILY HISTORY OF HEART DISEASEExposure to SARS-associated coronavirus;had vaccineHemiblock, left anteriorAnxiety disorderVitamin D deficiencySleep apnea VITAL SIGNS Date Observation Value Provider Body Mass Index (Ratio) 43.22 kg/m2 Gemma Lebron MD blood pressure, cuff size regular Kelby santacruz Carey blood pressure, diastolic 68 mm[Hg] [facility], systolic 110 mm[Hg] [facility] [place] oxygen saturation, oximetry 98 % [facility] pulse rate 95 /min [facility] E&M 214 [lb_av] Ines [place] respiratory rate E&M 12 /min Ines Carey height E&M 59 [in_i] Ines [place] Body Mass Index (Ratio) 43.62 kg/m2 Gemma Lebron MD pulse rate 91 /min Yeison y height E&M 59 [in_i] Yeison y blood pressure, cuff size large Anshu et blood pressure, diastolic 89 mm[Hg] Anshu rret blood pressure, systolic 142 mm[Hg] Jar ret oxygen saturation, oximetry 99 % Yeison respiratory rate E&M 12 /min Yeison weight E&M 216 [lb_av] Yeison y blood pressure, cuff size regular Anshu Carcamo RN blood pressure, diastolic 74 mm[Hg] Anshu Carcamo RN blood pressure, systolic 122 mm[Hg] Shayan Carcamo RN oxygen saturation, oximetry 98 % Shayan Carcamo RN respiratory rate E&M 20 /min Shayan Gordillo rks RN pulse rate 96 /min Shayan Mccrarys RN weight E&M 220 [lb_av] Shayan Carcamo RN ALLERGIES Allergy Name Onset Date Reaction Criticality Status PENICILLIN Low Criticality active HISTORY OF MEDICATION USE Medication Status Instructions Dates Provider Indications Com ments Wegovy 0.5 mg/0.5 mL pen injector active Inject 1 pen injector subcutaneously once a week for 4 weeks Mel Kvng Venous insufficiency Wegovy 0.25 mg/0.5 mL pen injector completed Inject 1 pen injector subcutaneously once a week for 4 weeks - Mel Kvng Venous insufficiency sertraline 25 mg tablet active Rachael Ventimiglia SECURITY ARCHITECT Feosol 325 mg (65 mg iron) tablet completed Take 1 tablet by mouth once a day - Rachael Ventimiglia SECURITY ARCHITECT paroxetine HCl 10 mg tablet completed - Rachael Ventimiglia SECURITY ARCHITECT furosemide 20 mg tablet completed - Onofre Lebron MD ergocalciferol (vitamin D2) 1,250 mcg (50,000 unit) capsule completed - Rachael Ventimiglia SECURITY ARCHITECT SOCIAL HISTORY Date Observation Value Provider personal history of marijuana use no Rachael Ventimiglia SECURITY ARCHITECT drug use no Rachael Ventimig shalonda SECURITY ARCHITECT alcohol use no Rachael Ventimig shalonda SECURITY ARCHITECT cigarette use yes Rachael Ventimi glia SECURITY ARCHITECT smoking status Current every day smoker A ginger Ventimiglia SECURITY ARCHITECT social history reviewed E&M revi ewed - no changes required Onofre Lebron MD smoking/tobacco cess ation, patient education and counseling yes Onofre Lebron MD social history reviewed E&M revi ewed - no changes required Onofre Lebron MD INSURANCE PROVIDERS Payer name Policy type / Coverage type [place] [employer] party ID [employer] MEDICAID Medicaid [id number] ADVANCE DIRECTIVES Name Date DISCUSSED - NO DECISION MADE TREATMENT PLAN Date Name Performer [id number],S, Onofre Serot a [id number],S, Onofre Serot a [id number],S, Onofre Serot a [id number],S, Onofre Serot a [id number],S, Onofre Serot a [id number],B, Onofre Serot a [id number],S, Onofre Serot a [id number],S, Onofre Serot a [id number],S,n eg egfr amd [rp bnp and echo n ml tsh and hiv and bfrain ct Onofre Lebron MD [id number],S, Onofre Serot a [id number],S,to get lucy Adhikari Serotgeri BAEZ [id number],C,moderate Gemma ey Serota [id number],B, Onofre Serot a [id number],S, Onofre Serot a [id number],S, Onofre Serot a [id number],S, Onofre Serot a [id number],S, Onofre Serot a [id number],S, Onofre Serot a [id number],S, Onofre Serot a [id number],S,SX Onofre Ser lily [id number],S,nml tsh and h iv and bfrain ct Onofre Lebron MD Cardiology:LDL [address] labs l ifestyle modification Rachael Ventimiglia SECURITY ARCHITECT Cardiology Rachael Ventimigl ia [facility] Cardiology:The patie nt is using CPAP on a regular basis. The patient has been benefiting from therapy and should continue use. [place] Ventimiglia [facility] Cardiology:weight lo ss encouraged w ill trial Wegovy [place] Ventimiglia [facility] Cardiology Rachael Ventimigl ia [facility] Cardiology:neg uacr n eg egfr amd [rp bnp and echo n ml tsh and hiv and bfrain ct Onofre Lebron MD Cardiology Onofre Lebron MD Cardiology Onofre Lebron MD Cardiology Onofre Lebron MD Cardiology Onofre Lebron MD Cardiology Onofre Lebron MD Cardiology Onofre Lebron MD Cardiology Onofre Lebron MD Cardiology Onofre Lebron MD Cardiology:neg egfr amd [rp bnp and echo n ml tsh and hiv and bfrain ct Onofre Lebron MD Cardiology Onofre Lebron MD Cardiology:to get lucy Lebron MD :moderate Onofre Lebron MD Cardiology;clindesk rfeviw Gab Lebron MD Cardiology;clindesk rfeviw Gab Lebron MD Cardiology;clindesk rfeviw Gab Lebron MD Cardiology;clindesk rfeviw Gab Lebron MD Cardiology;clindesk rfeviw Gab Lebron MD Cardiology;clindesk rfeviw Gab Lebron MD Cardiology;clindesk rfeviw Gab Lebron MD Cardiology;clindesk rfeviw:SX Salazar lilia Lebron MD Cardiology;clindesk rfeviw:nml tsh and hiv and bfrain ct Onofre Lebron MD Date Name Sleep Study Home Venous Doppler Bilat eral LE - Reflux Complete Echo VITAMIN B12 IRON AND TOTAL IRON BINDING CAPACITY FERRITIN CBC (INCLUDES DIFF/P LT) CRP, high sensitivit y PROBNP, N TERMINAL Microalb/Creatinine Urine, Random Lipoprotein (a) LIPID PANEL COMPREHENSIVE METABO LIC PANEL, W/EGFR CT, Coronary Calcium Score HISTORY OF PROCEDURES Procedure Date Procedure Name Provider Procedure Notes S tatus EKG Onofre Lebron MD complete d EKG Onofre Lebron MD complete d
--- OUTSIDE RECORDS SUMMARY | 2024-12-23 21:12 | XMS_ITS | Referral Summary ---
Author Organization [facility] Address [address] [place] [address] Care Team Providers Care Audit Clerks Supervisor Name Role Phone [facility] Primary Care P rovider Source Comments [facility] Affiliates and Associated Physician Practices is amultiple site organization consisting of ambulatory clinics and hospital sitesin [place], [place], [place] and [place]. This disclosure is being madepursuant to the Care Everywhere program and may not contain all information available regarding this patient. Last updated 18.[facility] Allergies Active Allergy Reactions Criticality Noted Date Comments Penicillins 09/11/2017 Medications * Be aware that medications may not be up to date on this document. Alwaysverify current medications with the patient. Medication Sig Dispensed Refills Start Date End Date Status naproxen (NAPROSYN) 500 MG tablet Take 1 tablet by mouth 2 times daily as needed for Pain 15 tablet 09/11/2017 Active Social History Tobacco Use Types Packs/Day Years [...] Mass Index 36.36 09/11/2017 7:19 PM CDT Plan of Treatment Not on file Care Teams Audit Clerks Supervisor Relationship Specialty Start Date End Date [facility] [address] [place] [id number] PCP - General Automatic Clipper 09/11/17
--- OUTSIDE RECORDS SUMMARY | 2024-12-23 21:12 | XMS_ITS | Clinical Summary ---
Author Organization [facility] Address [address] [place] [address] Care Team Providers Care Infusion Nurse Name Role Phone [facility] Primary Care P rovider Source Comments [facility] Affiliates and Associated Physician Practices is amultiple site organization consisting of ambulatory clinics and hospital sitesin [place], [place], [place] and [place]. This disclosure is being madepursuant to the Care Everywhere program and may not contain all information available regarding this patient. Last updated 18.[facility] Allergies Active Allergy Reactions Criticality Noted Date [...] 09/11/2017 7:19 PM CDT Plan of Treatment Health Maintenance Due Date Last Done Comments COLOGUARD (AGES 45-75) - COL ON CA SCREENING 1978 COLON MONITORING 1978 COLONOSCOPY - COLON CA SCREENING 1978 CT COLONOGRAPHY - COLON CA SCREENING 1978 Colorectal Cancer Screening 1978 FIT - COLON CA SCREENING 1978 FLEX SIG - COLON CA SCREENING 1978 LIPID TESTING 1978 MAMMOGRAM 1978 PAP SMEAR 1978 HIV SCREENING 1993 HEPATITIS C SCREENING 11/08/1996 DTAP/TDAP/TD VACCINES (1 - Tdap) 1997 HEPATITIS B VACCINE (1 of 3 - 19+ 3-dose series) 1997 PNEUMOCOCCAL VACCINE (1 of 2 - PCV) 1997 COVID-19 VACCINE (1 - 2023-2 5 season) 2024 INFLUENZA VACCINE (#1) 2024 DEPRESSION SCREENING 11/18/2024 ZOSTER VACCINE (1 of 2) 2028 HIB VACCINE Aged Out No longer eligi ble based on patient's age to complete this topic HPV VACCINE Aged Out No longer eligi ble based on patient's age to complete this topic MENINGOCOCCAL (Group B) VACCINE Aged Out No longer eligible based on patient's age to complete this topic MENINGOCOCCAL VACCINE Aged Out No bobby alfreda eligible based on patient's age to complete this topic Care Teams Infusion Nurse Relationship Specialty Start Date End Date [facility] [address] [place] [address] PCP - General Behavioral Health Care Manager 09/11/17
--- OUTSIDE RECORDS SUMMARY | 2024-12-23 21:12 | XMS_ITS | Clinical Summary ---
Author Organization [facility] Address [address] [place] [address] Care Team Providers Care Press Cleaner Name Role Phone [facility] Primary Care Provider U navailable Allergies Active Allergy Reactions Criticality Noted Date Comments Penicillins Unknown 09/11/2017 Medications PARoxetine (PAXIL) 10 mg tablet Take 1 tablet (10 mg total) by mouth every morning 30 tablet 11 06/09/2020 Active Active Problems No known active problems Social History Tobacco Use Types Packs/Day Years Used Date Smoking Tobacco: Every Day Tobacco Cessation:Ready to Q uit: No Alcohol Use Standard Drinks/Week Comments Yes 0 (1 standard drink = 0.6 oz pur e alcohol) Personal Safety Answer Date Recorded Getting School Help Needed Not on file 11/09 Comments No Sex and Gender Information Value Date Recorded Sex Assigned at Not on file Legal Sex 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 Gender Identity Not on file Sexual Orientation Not on file Obstetrics History Para Term AB IAB SAB Ectopic Multiple Livin g Live Births 5 4 4 1 4 Date Outcome GA Total Labor Labor/2nd/3rd Weight Sex Type Anes PTL Viridiana A1 A5 Name Clin Term Term Term Term AB Last Filed Vital Signs Vital Sign Reading Time Taken Comments Blood Pressure 111/56 11/01/2022 11:40 PM CENTRAL CONTROL ROOM OPERATOR Pulse 99 11/01/2022 11:40 PM CENTRAL CONTROL ROOM OPERATOR Temperature 36.8 C (98.2 F) 11/01/2022 5:39 PM CENTRAL CONTROL ROOM OPERATOR Respiratory Rate 15 11/01/2022 11:40 PM CENTRAL CONTROL ROOM OPERATOR Oxygen Saturation 98% 11/01/2022 11:40 PM CENTRAL CONTROL ROOM OPERATOR Inhaled Oxygen Concentration - - Weight 91.6 kg (202 lb) 11/01/2022 1:30 PM CENTRAL CONTROL ROOM OPERATOR Height 149.9 cm (4' 11 ) 11/01/2022 1:30 PM CENTRAL CONTROL ROOM OPERATOR Body Mass Index 40.8 11/01/2022 1:30 PM CENTRAL CONTROL ROOM OPERATOR Plan of Treatment Health Maintenance Due Date Last Done Comments Breast Cancer Screening-Mammogram 1978 Cervical Cancer Screening 1978 Colon Cancer Screening-Colonoscopy 1978 Depression Screening 1978 Hepatitis C Screening 1978 Pneumococcal vaccine <65 (1 of 2 - PCV) 1984 DTaP/Tdap/Td Vaccine (1 - Tdap) 1989 Hepatitis B Screening 1996 Regular Well Visit/Exam 18-64 1996 Influenza Vaccine (#1) 2024 10/21/2019 HPV Vaccines Aged Out No longer eligi ble based on patient's age to complete this topic Insurance [facility] Care Teams Press Cleaner Relationship Specialty Start Date End Date [facility] PCP - General 01/01/17
--- OUTSIDE RECORDS SUMMARY | 2024-12-23 21:12 | XMS_ITS | Data Portability ---
Author Organization [facility] Address [address] [place] [address] Care Team Providers Care Felt Pad Cutter Name Role Phone BRYANT BUTLER Primary Care Provider Assessment Encounter Date Assessment Date Assessment LastModified by Organization Details LastModified Time 04/17/2023 04/17/2023 Annual gynecological exam performed. Patient will come back in a year unless there are new symptoms. [email or web address] Not available 04/17/2023 17:38:27 04/20/2024 04/20/2024 Annual gynecological exam performed. Patient will come back in a year unless there are new symptoms. [email or web address] Not available 04/20/2024 11:12:14 Plan of Treatment Reminders Order Date Submit Date Provider Last Modified By Organization Details Last Modified Time Details Appointments None recorded. Lab CBC w/ auto diff 2022 023 [email or web address] [facility] (Lab), [address], [place], [address], 3 18:11:06 CMP, serum or plasma 2022 023 [facility] (Lab), [address], [place], [address], 3 04:44:23 lipid panel, blood 2022 023 [facility] (Lab), [address] [place], [address], 3 04:44:23 TSH, serum or plasma 2022 023 [facility] (Lab), [address], [place], [address], 3 04:44:24 vitamin D, 25-hydroxy, total, serum 2022 023 [facility] (Lab), [address], [place], [address], 3 04:44:25 CBC w/ auto diff 2022 023 [facility] (Lab), [address], [place], [address], 3 04:44:22 CMP, serum or plasma [address] (Lab), [address], [place], [address], 3 18:11:06 lipid panel, blood [address] (Lab), [address], [place], [address], 3 18:11:06 TSH, serum or plasma [address] (Lab), [address], [place], [address], 3 18:11:06 vitamin D, 25-hydroxy, total, serum [address] (Lab), [address], [place], [address], 3 18:11:06 pap, IG + reflex HPV if ASC-U - if positive HPV run subtyping 16,18/45 [address] (Lab), [address], [place], [address], 3 18:11:07 hormone panel, serum or plasma 2022 023 [facility] (Lab), [address] [facility], [place], [address], 3 04:44:24 urinalysis, dipstick 2022 023 [email or web address] [place] [address], [place], [address], 3 14:49:15 CBC w/ auto diff 2023 024 [facility] (Lab), [address], [place], [address], 4 06:22:39 CMP, serum or plasma 2023 024 [facility] (Lab), [address] [facility], [place], [address], 4 06:22:39 lipid panel, blood 2023 024 [facility] (Lab), [address], [place], [address], 4 06:22:40 TSH, serum or plasma 2023 024 [facility] (Lab), [address] [facility], [place], [address], 4 06:22:40 25-hydroxyv itamin D2 + 25-hydroxyv itamin D3, QN, serum or plasma 2023 024 [facility] (Lab), [address] [facility], [place], [address], 4 06:22:41 Referral None recorded. Procedures None recorded. Surgeries None recorded. Imaging None recorded. Medication Orders furosemide 20 mg tablet 2022 023 [facility][id number], [address], [place], [id number], 3 17:57:28 metronidazo le 0.75 % (37.5 mg/5 gram) vaginal gel 2022 023 [email or web address] [facility] #[id number], [address] [place] [address], [id number], 4 11:12:47 Cipro 500 mg tablet 2022 023 [email or web address] [facility] #[id number], [address] [place] [address], [id number], 4 10:59:54 sertraline 25 mg tablet 2023 024 [facility] #[id number], [address], [place], [id number], 4 11:56:26 Patient TargetsNo targets recorded. Patient InstructionsNo instructions recorded. Reason for Referral None Reported. Results Created Date Observation Date Name Description Value Unit Range Abnormal Flag Note LastModifiedBy Organization Detail LastModifiedTime 04/17/20 23 04/17/2023 IMAGE GUIDE D PAP AND HPV REGAR DLESS image guided Pap, HPV regardless of Pap result SEE RESULT S BELOW CASE REPOR T: Cytol ogy Gynec ologi jacobo Repor t Case: [id number] Autho audi swan Provi ta: Kateryna Edwards MD Colle cted: 04/17 1749 Order ing Locat ion: [place] Patho log[facility] Recei kary: 04/18 0859 First Scree n: Jane Luo ay, CT Speci men: Scree diego Pap - Image d, Vagin a STATE MENT OF ADEQU ACY: Satis facto ry for evalu ation FINAL DIAGN OSIS: Negat aimee for Intra epith elial Lesio n or Malig carroll (NIL) . Funga l organ isms morph ologi eddie consi stent with Babita da spp. Elect alden shultz socorro d by Jane Luo ay, CT on 023 at 1:56 PM ----- ----- ----- ----- ----- ----- ----- ----- ----- ----- ----- ----- ----- ----- ----- ----- ----- ---- HPV RESUL TS: HPV mRNA E6/E7 : No HPV mRNA Detec rayray NOTE: This high risk HPV mRNA assay detec ts fourt een high- risk HPV types (16, 18, 31, 33, 35, 39, 45, 51, 52, 56, 58, 59, 66, 68) witho ut diffe renti ation . COMME NT: This speci men was revie wed by a Cytot echno logis t and/o r Patho logis t (as indic ated in this repor t) after evalu ation using the Thinp rep Imagi ng Syste m. CLINI JACOBO INFOR MATIO N: Menst rual Statu s: LMP (if appli cable ): Clini jacobo Histo ry/Pr eviou s Pap: Type of Neopl jae (if appli cable ): Signi fican t Clini jacobo Findi ngs: Other Histo ry: Hormo shabbir (if appli cable ): PAP EDUCA JEAN L NOTE: The Pap Test is a scree diego test with an inher ent false negat aimee rate. Liqui d-bas ed sampl ing may decre ase, but will not elimi karolina, false negat aimee resul ts. A negat aimee resul t does not precl ude the prese nce and/o r devel opmen t of disea se, since the prese nce of abnor mal cells in the sampl e depen ds on the locat ion of the lesio n and sampl ing techn ique. Allen nued regul ar scree diego is the best metho d of cance r preve ntion . If repor rayray cytol ogic findi ng do not corre late with physi jacobo and/o r histo rical findi ngs, furth er inves tigat ion is recom hu d, as clini eddie ballard nted. Not Available [facility] (Lab) [address], [place], [address], 04/19/2023 14:59:26 04/18/20 23 04/18/2023 CBC W/DIF F WBC 9.3 10'3/ uL 3.6-10 .2 Not Available [facility] (Lab) [address], [place], [address], 04/19/2023 04:44:22 04/18/20 23 04/18/2023 CBC W/DIF F RBC 5.03 10'6/ uL (based on docume nted legal sex) 4.10-5 .30 Not Available [facility] (Lab) [address], [place], [address], 04/19/2023 04:44:22 04/18/20 23 04/18/2023 CBC W/DIF F HGB 14.4 g/dL (based on docume nted legal sex) 11.9-1 5.8 Not Available [facility] (Lab) [address], [place], [address], 04/19/2023 04:44:22 04/18/20 23 04/18/2023 CBC W/DIF F HCT 43.5 % (based on docume nted legal sex) 37.4-4 8.3 Not Available [facility] (Lab) [address], [place], [address], 04/19/2023 04:44:22 04/18/20 23 04/18/2023 CBC W/DIF F MCV 86.5 fL 82.0-9 9.0 Not Available [facility] (Lab) [address], [place], [address], 04/19/2023 04:44:22 04/18/20 23 04/18/2023 CBC W/DIF F MCH 28.6 pg 27.0-3 3.0 Not Available [facility] (Lab) [address], [place], [address], 04/19/2023 04:44:22 04/18/20 23 04/18/2023 CBC W/DIF F MCHC 33.1 g/dL 32.0-3 6.0 Not Available [facility] (Lab) [address] [facility], [place], [address], 04/19/2023 04:44:22 04/18/20 23 04/18/2023 CBC W/DIF F RDW 13.4 % 11.0-1 5.0 Not Available [facility] (Lab) [address], [place], [address], 04/19/2023 04:44:22 04/18/20 23 04/18/2023 CBC W/DIF F plt 342 10'3/ uL 150-45 0 Not Available [facility] (Lab) [address] [facility], [place], [address], 04/19/2023 04:44:22 04/18/20 23 04/18/2023 CBC W/DIF F MPV 10.3 fL 9.8-12 .7 Not Available [facility] (Lab) [address] [facility] [address], [place], [address], 04/19/2023 04:44:22 04/18/20 23 04/18/2023 CBC W/DIF F NRBC's 0.0 % 0 Not Available [facility] (Lab) [address] [facility] [address], [place], [address], 04/19/2023 04:44:22 04/18/20 23 04/18/2023 CBC W/DIF F absolute NRBCs 0.0 10'3/ uL 0 Not Available [facility] (Lab) [address] [facility] [address], [place], [address], 04/19/2023 04:44:22 04/18/20 23 04/18/2023 CBC W/DIF F neutrophils 55.8 % 37.0-7 2.0 Not Available [facility] (Lab) [address], [place], [address], 04/19/2023 04:44:22 04/18/20 23 04/18/2023 CBC W/DIF F lymphocytes 30.9 % 16.0-4 8.0 Not Available [facility] (Lab) [address], [place], [address], 04/19/2023 04:44:22 04/18/20 23 04/18/2023 CBC W/DIF F monocytes 8.0 % 4.0-14 .0 Not Available [facility] (Lab) [address], [place], [address], 04/19/2023 04:44:22 04/18/20 23 04/18/2023 CBC W/DIF F eosinophils 4.3 % 0.0-9. 0 Not Available [facility] (Lab) [address], [place], [address], 04/19/2023 04:44:22 04/18/20 23 04/18/2023 CBC W/DIF F basophils 0.6 % 0.0-2. 0 Not Available [facility] (Lab) [address] [facility], [place], [address], 04/19/2023 04:44:22 04/18/20 23 04/18/2023 CBC W/DIF F immature granulocytes 0.4 % no define d refere nce range Not Available [facility] (Lab) [address] [facility] [address], [place], [address], 04/19/2023 04:44:22 04/18/20 23 04/18/2023 CBC W/DIF F absolute neutrophils 5.2 10'3/ uL 1.1-6. 0 Not Available [facility] (Lab) [address] [place], [address], 04/19/2023 04:44:22 04/18/20 23 04/18/2023 CBC W/DIF F absolute lymphocytes 2.9 10'3/ uL 0.7-3. 4 Not Available [facility] (Lab) [address] [facility], [place], [address], 04/19/2023 04:44:22 04/18/20 23 04/18/2023 CBC W/DIF F absolute monocytes 0.7 10'3/ uL 0.3-1. 0 Not Available [facility] (Lab) [address] [facility], [place], [address], 04/19/2023 04:44:22 04/18/20 23 04/18/2023 CBC W/DIF F absolute eosinophils 0.4 10'3/ uL 0.0-0. 6 Not Available [facility] (Lab) [address] [facility], [place], [address], 04/19/2023 04:44:22 04/18/20 23 04/18/2023 CBC W/DIF F absolute basophils 0.1 10'3/ uL 0.0-0. 1 Not Available [facility] (Lab) [address] [facility], [place], [address], 04/19/2023 04:44:22 04/18/20 23 04/18/2023 CBC W/DIF F absolute immature granulocytes 0.0 10'3/ uL 0.00-0 .10 023 2:16 AM: P indic ates parti al resul ts on a panel have been relea sed. Addit ional resul ts will follo w. 023 2:16 AM: This resul t has been final verif ied. No addit ional or whaley ed resul ts are expec rayray. Not Available [facility] (Lab) [address] [facility] [address], [place], [address], 04/19/2023 04:44:22 04/18/20 23 04/18/2023 LIPID PANEL ,AMA (LDL- CALC) total cholesterol 147 mg/dL 0-[address] [facility] (Lab) [address] [facility], [place], [address], 04/19/2023 04:44:23 04/18/2004/18/2023 LIPID PANEL ,AMA (LDL- CALC) triglyceride s 116 mg/dL 0.00-1 50.00 NCEP Refer ence Value s for Trigl yceri kenia: Kaylie l: <150 mg/dL Borde rline High: 150 - 199 mg/dL High: 200 - 499 mg/dL Very High: >/= 500 mg/dL Not Available [facility] (Lab) [address] [place], [address], 04/19/2023 04:44:23 04/18/2004/18/2023 LIPID PANEL ,AMA (LDL- CALC) HDL cholesterol 38 mg/dL >40 low Not Available [facility] (Lab) [address] [place], [address], 04/19/2023 04:44:23 04/18/2004/18/2023 LIPID PANEL ,AMA (LDL- CALC) LDL cholesterol 88 mg/dL 0-99 Cutof f value s recom hu d by the Natio nal Sabine stero l Educa tion Progr am: FREDO ABLE: Sabine stero l <200 mg/dL LDL <100 mg/dL BORDE RLINE : Sabine stero l 200-2 39 mg/dL LDL 101-1 59 mg/dL HIGHE R RISK: Sbaine stero l >240 mg/dL LDL >160 mg/dL , HDL <40 mg/dL Not Available [facility] (Lab) [address] [place], [address], 04/19/2023 04:44:23 04/18/2004/18/2023 LIPID PANEL ,AMA (LDL- CALC) non-HDL cholesterol 109 mg/dL no refere nce range A reaso nable goal for non-H DL sabine stero l is one that is 30 mg/dL highe r than the LDL sabine stero l goal. Not Available [facility] (Lab) [address], [place], [address], 04/19/2023 04:44:23 04/18/2004/18/2023 LIPID PANEL ,AMA (LDL- CALC) chol/HDL ratio 3.9 . 0.0-5. 0 On March 12, 2023, [facility] whaley ed the equat ion for calcu latin g estim ated low-d ensit y lipop rotei n-cho leste rol (LDL- C) from the Fried james equat ion to the Rashida n/Hop kins equat ion. This new equat ion is only valid for lipid panel s with trigl yceri kenia < 400 mg/dL . Studi es maggy demon strat ed that this new equat ion will impro ve the accur acy of LDL-C , espec ially in scena irby when LDL-C bin ntrat ions are relat ively low (< 100 mg/dL ), trigl yceri kenia are eleva rayray, or patie nt is non-f astin g. Refer ences : - Rashida prado, Dex Fraire, Ponce Jiménez , [facility] neville alvarado, Buck Beaulieu, Buck ahn h, Kj wahl , and Golden Luo . 2013. Comp ariso n of a Novel Metho d vs the Fried james Equat ion for Estim ating Low-D ensit y Lipop rotei n Sabine stero l Level s from the Stand zofia Lipid Profi le. MICAELA: The Journ al of the Ameri can Medic al Assoc iatio n 310 (19): 2060- . - Mirtha acosta V, Sophia J, Sarah acosta A, Uriah M, Georgia e R, Venita Patel, Jared wahl RS, Valerio SR, Rashida prado SS. Fast ing Versu s Nonfa sting and Low-D ensit y Lipop rotei n Sabine stero l Accur acy. Circu latio n. 2017Nov 19;137 (1):1 0-19. Not Available [facility] (Lab) [address] [facility] [address], [place], [address], 04/19/2023 04:44:23 04/18/20 23 04/18/2023 CMP(C OMPRE HENSI VE METAB OLIC PANEL ) sodium 141 mmol/ L 133-14 6 Not Available [facility] (Lab) [address] [facility] [address], [place], [address], 04/19/2023 04:44:23 04/18/20 23 04/18/2023 CMP(C OMPRE HENSI VE METAB OLIC PANEL ) potassium 3.8 mmol/ L 3.5-5. 1 Not Available [facility] (Lab) [address] [facility], [place], [address], 04/19/2023 04:44:23 04/18/20 23 04/18/2023 CMP(C OMPRE HENSI VE METAB OLIC PANEL ) chloride 107 mmol/ L 98-107 Not Available [facility] (Lab) [address] [facility] [address], [place], [address], 04/19/2023 04:44:23 04/18/20 23 04/18/2023 CMP(C OMPRE HENSI VE METAB OLIC PANEL ) carbon dioxide 22 mmol/ L 21-31 Not Available [facility] (Lab) [address] [facility], [place], [address], 04/19/2023 04:44:23 04/18/20 23 04/18/2023 CMP(C OMPRE HENSI VE METAB OLIC PANEL ) anion gap 12 mmol/ L 4-13 Not Available [facility] (Lab) [address] [facility] [address], [place], [address], 04/19/2023 04:44:23 04/18/20 23 04/18/2023 CMP(C OMPRE HENSI VE METAB OLIC PANEL ) blood urea nitrogen 10 mg/dL 7-25 Not Available [facility] (Lab) [address] [facility], [place], [address], 04/19/2023 04:44:23 04/18/20 23 04/18/2023 CMP(C OMPRE HENSI VE METAB OLIC PANEL ) creatinine 0.75 mg/dL 0.60-1 .30 Not Available [facility] (Lab) [address], [place], [address], 04/19/2023 04:44:23 04/18/20 23 04/18/2023 CMP(C OMPRE HENSI VE METAB OLIC PANEL ) egfrcr (CKD-epi 2020) >90 mL/mi n/1.7 3_m2 >=60 Not Available [facility] (Lab) [address], [place], [address], 04/19/2023 04:44:23 04/18/20 23 04/18/2023 CMP(C OMPRE HENSI VE METAB OLIC PANEL ) calcium 9.3 mg/dL 8.3-10 .5 Not Available [facility] (Lab) [address], [place], [address], 04/19/2023 04:44:23 04/18/20 23 04/18/2023 CMP(C OMPRE HENSI VE METAB OLIC PANEL ) glucose 78 mg/dL 70-100 Not Available [facility] (Lab) [address], [place], [address], 04/19/2023 04:44:23 04/18/20 23 04/18/2023 CMP(C OMPRE HENSI VE METAB OLIC PANEL ) protein, total 6.8 g/dL 6.4-8. 3 Not Available [facility] (Lab) [address], [place], [address], 04/19/2023 04:44:23 04/18/20 23 04/18/2023 CMP(C OMPRE HENSI VE METAB OLIC PANEL ) albumin 4.1 g/dL 3.5-5. 0 Not Available [facility] (Lab) [address], [place], [address], 04/19/2023 04:44:23 04/18/20 23 04/18/2023 CMP(C OMPRE HENSI VE METAB OLIC PANEL ) ALT 8 units /L 9-43 low Not Available [facility] (Lab) [address] [place], [address], 04/19/2023 04:44:23 04/18/20 23 04/18/2023 CMP(C OMPRE HENSI VE METAB OLIC PANEL ) alkaline phosphatase 61 units /L 34-104 Not Available [facility] (Lab) [address] [facility] [address], [place], [address], 04/19/2023 04:44:23 04/18/20 23 04/18/2023 CMP(C OMPRE HENSI VE METAB OLIC PANEL ) AST 11 units /L 13-39 low Not Available [facility] (Lab) [address] [facility], [place], [address], 04/19/2023 04:44:23 04/18/20 23 04/18/2023 CMP(C OMPRE HENSI VE METAB OLIC PANEL ) bilirubin, total 0.6 mg/dL 0.2-1. 2 Not Available [facility] (Lab) [address] [place], [address], 04/19/2023 04:44:23 04/18/20 23 04/18/2023 TSH, REFLE X FREE T4 TSH 1.35 uIU/m L 0.30-5 .33 Not Available [facility] (Lab) [address] [place], [address], 04/19/2023 04:44:24 04/18/20 23 04/18/2023 FSH, LH, ESTRA DIOL estradiol 143.0 pg/mL This assay was perfo rmed using [employer] ratio n reage nts and test kits. Value s obtai ralph with other assay metho ds or kits canno t be used inter whaley eably . Femal e Estra diol Range s: Folli cular phase 12.4- 233 pg/mL Ovula tion phase 41.0- 398 pg/mL Lutea l phase 22.3- 341 pg/mL Postm enopa usal< 5-138 pg/mL Healt hy Pregn ant Women 1st Trime ster1 54-32 43 pg/mL 2nd Trime ster1 561-2 1280 pg/mL 3rd Trime ster8 525-> 82886 pg/mL Not Available [facility] (Lab) [address] [facility], [place], [address], 04/19/2023 04:44:24 04/18/20 23 04/18/2023 FSH, LH, ESTRA DIOL FSH 6.3 mIU/m L This assay was perfo rmed using [employer] reage nts and test kits. Value s obtai ralph with other assay metho ds or kits canno t be used inter [facility] . Femal es Folli cular : 3.5-1 2.5 mIU/m L Ovula tion: 4.7-2 1.5 mIU/m L Lutea l: 1.7-7 .7 mIU/m L Postm enopa use: 25.8- 134.8 mIU/m L Not Available [facility] (Lab) [address] [place], [address], 04/19/2023 04:44:24 04/18/20 23 04/18/2023 FSH, LH, ESTRA DIOL LH 7.0 mIU/m L This assay was perfo rmed using [employer] reage nts and test kits. Value s obtai ralph with other assay metho ds or kits canno t be used inter whaley eay . Femal es Mid-F ollic ular: 2.4-1 2.6 mIU/m L Mid-C ycle: 14.0- 95.6 mIU/m L Mid-L uteal : 1.0-1 1.4 mIU/m L Postm enopa use: 7.7-5 8.5 mIU/m L Not Available [facility] (Lab) [address] [place], [address], 04/19/2023 04:44:24 06/01/20 23 04/18/2023 VITAM IN D, 25-OH (TOTA L D2/D3 ) vitamin D, 25-hydroxy, total <7.0 NG/mL 30.0-1 00.0 low Sugge stive of Defic iency : <20 ng/mL Sugge stive of Insuf ficie ncy: 20-29 ng/mL Sugge stive of Suffi cienc y: 30-10 0 ng/mL Sugge stive of Toxic ity: >150 ng/mL Not Available [facility] (Lab) [address], [place], [address], 04/19/2023 04:44:25 07/05/20 23 07/05/2023 urina lysis , dipst ick Leukocytes +1 Not Available [facility] [address], [place], [address], 07/05/2023 14:48:37 07/05/20 23 07/05/2023 urina lysis , dipst ick Nitrite positi ve Not Available [place] [address], [place], [address], 07/05/2023 14:48:37 07/05/20 23 07/05/2023 urina lysis , dipst ick Protein trace Not Available [place] [address], [place], [address], 07/05/2023 14:48:37 07/05/20 23 07/05/2023 urina lysis , dipst ick pH 5 Not Available [place] [address], [place], [address], 07/05/2023 14:48:37 07/05/20 23 07/05/2023 urina lysis , dipst ick Blood +++ Not Available [place] [address], [place], [address], 07/05/2023 14:48:37 07/05/20 23 07/05/2023 urina lysis , dipst ick Specific Jones 1.025 Not Available [facility] [address], [place], [address], 07/05/2023 14:48:37 07/05/20 23 07/05/2023 urina lysis , dipst ick Glucose normal Not Available [place] [address], [place], [address], 07/05/2023 14:48:37 04/20/20 24 04/20/2024 CBC W/DIF F WBC 9.0 10'3/ uL 3.5-10 .5 Not Available [facility] (Lab) [address], [place], [address], 04/21/2024 06:22:39 04/20/20 24 04/20/2024 CBC W/DIF F RBC 4.96 10'6/ uL (based on docume nted legal sex) 3.80-5 .20 Not Available [facility] (Lab) [address], [place], [address], 04/21/2024 06:22:39 04/20/20 24 04/20/2024 CBC W/DIF F HGB 14.4 g/dL (based on docume nted legal sex) 11.6-1 5.4 Not Available [facility] (Lab) [address], [place], [address], 04/21/2024 06:22:39 04/20/20 24 04/20/2024 CBC W/DIF F HCT 43.5 % (based on docume nted legal sex) 34.0-4 5.0 Not Available [facility] (Lab) [address], [place], [address], 04/21/2024 06:22:39 04/20/20 24 04/20/2024 CBC W/DIF F MCV 87.7 fL 80.0-9 9.0 Not Available [facility] (Lab) [address] [facility], [place], [address], 04/21/2024 06:22:39 04/20/20 24 04/20/2024 CBC W/DIF F MCH 29.0 pg 27.0-3 4.0 Not Available [facility] (Lab) [address] [facility], [place], [address], 04/21/2024 06:22:39 04/20/20 24 04/20/2024 CBC W/DIF F MCHC 33.1 g/dL 32.0-3 5.5 Not Available [facility] (Lab) [address] [facility], [place], [address], 04/21/2024 06:22:39 04/20/20 24 04/20/2024 CBC W/DIF F RDW 14.1 % 11.0-1 5.0 Not Available [facility] (Lab) [address] [facility], [place], [address], 04/21/2024 06:22:39 04/20/20 24 04/20/2024 CBC W/DIF F plt 319 10'3/ uL 150-40 0 Not Available [facility] (Lab) [address] [facility], [place], [address], 04/21/2024 06:22:39 04/20/20 24 04/20/2024 CBC W/DIF F MPV 10.6 fL 8.8-12 .1 Not Available [facility] (Lab) [address] [facility], [place], [address], 04/21/2024 06:22:39 04/20/20 24 04/20/2024 CBC W/DIF F NRBC's 0.0 % 0.0 Not Available [facility] (Lab) [address] [facility], [place], [address], 04/21/2024 06:22:39 04/20/20 24 04/20/2024 CBC W/DIF F absolute NRBCs 0.0 10'3/ uL no refere nce range establ ished Not Available [facility] (Lab) [address] [facility], [place], [address], 04/21/2024 06:22:39 04/20/20 24 04/20/2024 CBC W/DIF F neutrophils 57.9 % 34.0-7 3.0 Not Available [facility] (Lab) [address] [facility], [place], [address], 04/21/2024 06:22:39 04/20/20 24 04/20/2024 CBC W/DIF F lymphocytes 28.7 % 15.0-5 0.0 Not Available [facility] (Lab) [address] [facility], [place], [address], 04/21/2024 06:22:39 04/20/20 24 04/20/2024 CBC W/DIF F monocytes 8.5 % 1.0-15 .0 Not Available [facility] (Lab) [address] [facility], [place], [address], 04/21/2024 06:22:39 04/20/20 24 04/20/2024 CBC W/DIF F eosinophils 4.0 % 0.0-8. 0 Not Available [facility] (Lab) [address] [facility], [place], [address], 04/21/2024 06:22:39 04/20/20 24 04/20/2024 CBC W/DIF F basophils 0.6 % 0.0-2. 0 Not Available [facility] (Lab) [address] [facility], [place], [address], 04/21/2024 06:22:39 04/20/20 24 04/20/2024 CBC W/DIF F immature granulocytes 0.3 % no define d refere nce range Not Available [facility] (Lab) [address] [place], [address], 04/21/2024 06:22:39 04/20/20 24 04/20/2024 CBC W/DIF F absolute neutrophils 5.2 10'3/ uL 1.5-8. 0 Not Available [facility] (Lab) [address] [facility], [place], [address], 04/21/2024 06:22:39 04/20/20 24 04/20/2024 CBC W/DIF F absolute lymphocytes 2.6 10'3/ uL 1.0-4. 0 Not Available [facility] (Lab) [address], [place], [address], 04/21/2024 06:22:39 04/20/20 24 04/20/2024 CBC W/DIF F absolute monocytes 0.8 10'3/ uL 0.2-1. 0 Not Available [facility] (Lab) [address], [place], [address], 04/21/2024 06:22:39 04/20/20 24 04/20/2024 CBC W/DIF F absolute eosinophils 0.4 10'3/ uL 0.0-0. 6 Not Available [facility] (Lab) [address], [place], [address], 04/21/2024 06:22:39 04/20/20 24 04/20/2024 CBC W/DIF F absolute basophils 0.1 10'3/ uL 0.0-0. 3 Not Available [facility] (Lab) [address] [place], [address], 04/21/2024 06:22:39 04/20/20 24 04/20/2024 CBC W/DIF F absolute immature granulocytes 0.0 10'3/ uL 0.00-0 .10 4:44 AM: P indic ates parti al resul ts on a panel have been relea sed. Addit ional resul ts will follo w. 4:44 AM: This resul t has been final verif ied. No addit ional or whaley ed resul ts are expec rayray. Not Available [facility] (Lab) [address], [place], [address], 04/21/2024 06:22:39 04/20/20 24 04/20/2024 CMP(C OMPRE HENSI VE METAB OLIC PANEL ) sodium 139 mmol/ L 133-14 6 Not Available [facility] (Lab) [address], [place], [address], 04/21/2024 06:22:39 04/20/20 24 04/20/2024 CMP(C OMPRE HENSI VE METAB OLIC PANEL ) potassium 4.1 mmol/ L 3.5-5. 1 Not Available [facility] (Lab) [address], [place], [address], 04/21/2024 06:22:39 04/20/20 24 04/20/2024 CMP(C OMPRE HENSI VE METAB OLIC PANEL ) chloride 108 mmol/ L 98-107 high Not Available [facility] (Lab) [address], [place], [address], 04/21/2024 06:22:39 04/20/20 24 04/20/2024 CMP(C OMPRE HENSI VE METAB OLIC PANEL ) carbon dioxide 23 mmol/ L 21-31 Not Available [facility] (Lab) [address], [place], [address], 04/21/2024 06:22:39 04/20/20 24 04/20/2024 CMP(C OMPRE HENSI VE METAB OLIC PANEL ) anion gap 8 mmol/ L 4-13 Not Available [facility] (Lab) [address], [place], [address], 04/21/2024 06:22:39 04/20/20 24 04/20/2024 CMP(C OMPRE HENSI VE METAB OLIC PANEL ) blood urea nitrogen 11 mg/dL 7-25 Not Available [facility] (Lab) [address] [place], [address], 04/21/2024 06:22:39 04/20/20 24 04/20/2024 CMP(C OMPRE HENSI VE METAB OLIC PANEL ) creatinine 0.70 mg/dL 0.60-1 .30 Not Available [facility] (Lab) [address], [place], [address], 04/21/2024 06:22:39 04/20/20 24 04/20/2024 CMP(C OMPRE HENSI VE METAB OLIC PANEL ) egfrcr (CKD-epi 2020) >90 mL/mi n/1.7 3_m2 >=60 Not Available [facility] (Lab) [address], [place], [address], 04/21/2024 06:22:39 04/20/20 24 04/20/2024 CMP(C OMPRE HENSI VE METAB OLIC PANEL ) calcium 9.4 mg/dL 8.3-10 .5 Not Available [facility] (Lab) [address], [place], [address], 04/21/2024 06:22:39 04/20/20 24 04/20/2024 CMP(C OMPRE HENSI VE METAB OLIC PANEL ) glucose 79 mg/dL 70-100 Not Available [facility] (Lab) [address], [place], [address], 04/21/2024 06:22:39 04/20/20 24 04/20/2024 CMP(C OMPRE HENSI VE METAB OLIC PANEL ) protein, total 6.6 g/dL 6.4-8. 3 Not Available [facility] (Lab) [address], [place], [address], 04/21/2024 06:22:39 04/20/20 24 04/20/2024 CMP(C OMPRE HENSI VE METAB OLIC PANEL ) albumin 4.2 g/dL 3.5-5. 0 Not Available [facility] (Lab) [address], [place], [address], 04/21/2024 06:22:39 04/20/20 24 04/20/2024 CMP(C OMPRE HENSI VE METAB OLIC PANEL ) ALT 7 units /L 9-43 low Not Available [facility] (Lab) [address], [place], [address], 04/21/2024 06:22:39 04/20/20 24 04/20/2024 CMP(C OMPRE HENSI VE METAB OLIC PANEL ) alkaline phosphatase 65 units /L 34-104 Not Available [facility] (Lab) [address], [place], [address], 04/21/2024 06:22:39 04/20/20 24 04/20/2024 CMP(C OMPRE HENSI VE METAB OLIC PANEL ) AST 13 units /L 13-39 Not Available [facility] (Lab) [address], [place], [address], 04/21/2024 06:22:39 04/20/20 24 04/20/2024 CMP(C OMPRE HENSI VE METAB OLIC PANEL ) bilirubin, total 0.5 mg/dL 0.2-1. 2 Not Available [facility] (Lab) [address] [place], [address], 04/21/2024 06:22:39 04/20/20 24 04/20/2024 LIPID PANEL ,AMA (LDL- CALC) total cholesterol 141 mg/dL 0-199 Not Available [facility] (Lab) [address] [place], [address], 04/21/2024 06:22:40 04/20/20 24 04/20/2024 LIPID PANEL ,AMA (LDL- CALC) triglyceride s 151 mg/dL 0-150 high NCEP Refer ence Value s for Trigl yceri kenia: Kaylie l: <150 mg/dL Borde rline High: 150 - 199 mg/dL High: 200 - 499 mg/dL Very High: >/= 500 mg/dL Not Available [facility] (Lab) [address] [place], [address], 04/21/2024 06:22:40 04/20/20 24 04/20/2024 LIPID PANEL ,AMA (LDL- CALC) HDL cholesterol 32 mg/dL >40 low Not Available [facility] (Lab) [address], [place], [address], 04/21/2024 06:22:40 04/20/20 24 04/20/2024 LIPID PANEL ,AMA (LDL- CALC) LDL cholesterol 84 mg/dL 0-99 Cutof f value s recom hu d by the Natio nal Sabine stero l Educa tion Progr am: FREDO ABLE: Sabine stero l <200 mg/dL LDL <100 mg/dL BORDE RLINE : Sabine stero l 200-2 39 mg/dL LDL 101-1 59 mg/dL HIGHE R RISK: Sabine stero l >240 mg/dL LDL >160 mg/dL , HDL <40 mg/dL Not Available [facility] (Lab) [address], [place], [address], 04/21/2024 06:22:40 04/20/20 24 04/20/2024 LIPID PANEL ,AMA (LDL- CALC) non-HDL cholesterol 109 mg/dL no refere nce range A reaso nable goal for non-H DL sabine stero l is one that is 30 mg/dL highe r than the LDL sabine stero l goal. Not Available [facility] (Lab) [address] [place], [address], 04/21/2024 06:22:40 04/20/20 24 04/20/2024 LIPID PANEL ,AMA (LDL- CALC) chol/HDL ratio 4.4 . 0.0-5. 0 On March 12, 2023[facility] whaley ed the equat ion for calcu latin g estim ated low-d ensit y lipop rotei n-cho leste rol (LDL- C) from the Christiano fultonald equat ion to the Rashida prado/Ledy pedraza equat ion. This new equat ion is only valid for lipid panel s with trigl yceri kenia < 400 mg/dL . Studi es have demon straartemio ed that this new equat ion will impro ve the accur acy of LDL-C , espec ially in scena irby when LDL-C bin ntrat ions are relat ively low (< 100 mg/dL ), trigl yceri kenia are eleva rayray, or patie nt is non-f astin g. Refer ences : - Rashida prado, Dex Fraire, Ponce Jiménez , Norma alvarado, Buck Beaulieu, Buck gupta, Kj Geller. [facility] , and Golden Luo . 2013. Comp ariso n of a Novel Metho d vs the Fried james Equat ion for Estim ating Low-D ensit y Lipop rotei n Sabine stero l Level s from the Stand zofia Lipid Profi le. MICAELA: The Journ al of the Ameri can Medic al Assoc iatio n 310 (19): 2060- . - Mirtha shaw ar V, Sophia J, Sarah ar A, Uriah M, [place] e R, Venita ar E, [facility] RS, Valerio SR, Rashida prado SS. Fast ing Versu s Nonfa sting and Low-D ensit y Lipop rotei n Sabine stero l Accur acy. Circu latio n. 2017Nov 19;137 (1):1 0-19. Not Available [facility] (Lab) [address], [place], [address], 04/21/2024 06:22:40 04/20/20 24 04/20/2024 TSH, REFLE X FREE T4 TSH 1.22 uIU/m L 0.30-5 .33 Not Available [facility] (Lab) [address] [place], [address], 04/21/2024 06:22:40 04/20/20 24 04/20/2024 VITAM IN D, 25-OH (TOTA L D2/D3 ) vitamin D, 25-hydroxy, total 12.2 NG/mL 30.0-1 00.0 low Sugge stive of Defic iency : <20 ng/mL Sugge stive of Insuf ficie ncy: 20-29 ng/mL Sugge stive of Suffi cienc y: 30-10 0 ng/mL Sugge stive of Toxic ity: >150 ng/mL Not Available [facility] (Lab) [address], [place], [address], 04/21/2024 06:22:41 04/20/20 24 04/20/2024 IMAGE GUIDE D PAP AND HPV REGAR DLESS image guided Pap, HPV regardless of Pap result SEE RESULT S BELOW CASE REPOR T: Cytol ogy Gynec ologi jacobo Repor t Case: [id number] Autho audi swan Provi ta: Kateryna Edwards MD Colle cted: 04/20 1354 Order ing Locat ion: [place] [facility] Recei kary: 04/21 1046 First Scree n: Rocio Arellano , CT Rescr een: Malu Davis ret, CT Speci men: Scregiorgi diego Pap - Image d, Cervi x STATE MENT OF ADEQU ACY: Satis facto ry for evalu ation ----- ----- ----- ----- ----- ----- ----- ----- ----- ----- ----- ----- ----- ----- ----- ----- ----- ---- FINAL DIAGN OSIS: Negat aimee for Intra epith elial Keesha prado or Nani hodges (NIL) . Elect alden quintanilla d by Malu Davis ret, CT on 024 at 10:46 AM ----- ----- ----- ----- ----- ----- ----- ----- ----- ----- ----- ----- ----- ----- ----- ----- ----- ---- HPV RESUL TS: HPV mRNA E6/E7 : No HPV mRNA Detec rayray NOTE: This high risk HPV mRNA assay detec ts fourt een high- risk HPV types (16, 18, 31, 33, 35, 39, 45, 51, 52, 56, 58, 59, 66, 68) witho ut diffe renti ation . COMME NT: This speci men was revie wed by a Cytot echno logis t and/o r Patho logis t (as indic ated in this repor t) after evalu ation using the Thinp rep Imagi ng Syste m. CLINI JACOBO INFOR MATIO N: Menst rual Statu s: LMP (if appli cable ): Clini jacobo Histo ry/Pr eviou s Pap: Type of Neopl jae (if appli cable ): Signi fican t Clini jacobo Findi ngs: Other Histo ry: Hormo shabbir (if appli cable ): PAP EDUCA JEAN L NOTE: The Pap Test is a scree diego test with an inher ent false negat aimee rate. Liqui d-bas ed sampl ing may decre ase, but will not elimi karoilna, false negat aimee resul ts. A negat aimee resul t does not precl ude the prese nce and/o r devel opmen t of disea se, since the prese nce of abnor mal cells in the sampl e depen ds on the locat ion of the lesio n and sampl ing techn ique. Allen nued regul ar scree diego is the best metho d of cance r preve ntion . If repor rayray cytol ogic findi ng do not corre late with physi jacobo and/o r histo rical findi ngs, furth er inves tigat ion is recom hu d, as jose alejandroi eddie ballard nted. Not Available [facility] (Lab) [address], [place], [address], 04/23/2024 11:48:54 Result Notes None recorded. Procedures Surgical History Date Name Laterality Status Provider Name and Address Organization Details Recorded Time 04/17/20 23 Date of Last Pap Smear completed Leslie Roa [facility] 04/20/2024 11:13:22 08/08/20 22 urethroplasty for stricture completed [facility] 11/07/2022 15:48:01 04/04/20 22 TOTAL HYSTERECTOMY, LAPAROSCOPIC, WITH BILATERAL SALPINGO-OOPHOREC NYDIA (SURG) completed [facility] 04/05/2022 11:38:53 04/04/20 22 TOTAL HYSTERECTOMY, LAPAROSCOPIC, WITH BILATERAL SALPINGO-OOPHOREC NYDIA (SURG) completed [facility] 04/05/2022 11:38:49 04/16/20 05 Caesarean Section completed [facility] 07/05/2023 14:47:17 Imaging Results None recorded. Procedure Notes None recorded. Medical Equipment None Reported. Allergies Allergen ID Allergen Name Allergen Category Reaction Reaction Severity Criticality Documentation Date Start Date Code Code System Note Provider Name and Address Organization Details Recorded Time Product containin g penicilli n and antibioti c (product) medicatio n Not available Not available Not available 02/14/2022 16185 05 SNOMED [facility] 14:33:47 Medications Name Sig Start Date Stop Date Status Note LastModified by Organization Details LastModified Time furosemide 40 mg tablet active Not Available Not Available Not Available oxybutynin chloride ER 15 mg tablet,exte nded release 24 hr TAKE 1 TABLET BY MOUTH EVERY DAY 04/17 completed Not Available Not Available Not Available paroxetine 10 mg tablet TAKE 1 TABLET BY MOUTH EVERY DAY active Not Available Not Available No t Available ibuprofen 800 mg tablet TAKE 1 TABLET BY MOUTH THREE TIMES DAILY 04/17 completed Not Available Not Available Not Available fluconazole 150 mg tablet TAKE 1 TABLET BY MOUTH EVERY OTHER DAY 04/17 completed Not Available Not Available Not Available tolterodine ER 4 mg capsule,ext ended release 24 hr 04/17 completed Not Available Not Available Not Available hydrocodone 5 mg-acetamin ophen 325 mg tablet TAKE 2 TABLETS BY MOUTH EVERY 8 HOURS 04/17 completed Not Available Not Available Not Available fluconazole 200 mg tablet 04/17 completed Not Available Not Available Not Available phenazopyri dine 200 mg tablet 04/17 completed Not Available Not Available Not Available metronidazo le 0.75 % (37.5 mg/5 gram) vaginal gel INSERT 1 APPLICATO RFUL VAGINALLY EVERY DAY 04/20 completed Not Available Not Available Not Available Milk of Magnesia 400 mg/5 mL oral suspension Take 30 mL 3 times a day by oral route. 04/17 completed Not Available Not Available Not Available ciprofloxac in 250 mg tablet TAKE 1 TABLET BY MOUTH TWICE DAILY 04/17 completed Not Available Not Available Not Available ciprofloxac in 500 mg tablet TAKE 1 TABLET BY MOUTH EVERY 12 HOURS 04/20 completed Not Available Not Available Not Available sulfamethox azole 800 mg-trimetho prim 160 mg tablet TAKE 1 TABLET BY MOUTH EVERY 12 HOURS 04/17 completed Not Available Not Available Not Available ondansetron 8 mg disintegrat ing tablet DISSOLVE 1 TABLET ON THE TONGUE TWICE DAILY 04/17 completed Not Available Not Available Not Available tolterodine 2 mg tablet TAKE 1 TABLET BY MOUTH TWICE DAILY 04/17 completed Not Available Not Available Not Available cephalexin 500 mg capsule TAKE ONE CAPSULE BY MOUTH EVERY 8 HOURS FOR 10 DAYS 04/17 completed Not Available Not Available Not Available sertraline 25 mg tablet TAKE 1 TABLET BY MOUTH EVERY DAY active Not Available Not Available No t Available furosemide 20 mg tablet TAKE 1 TABLET BY MOUTH EVERY DAY active Not Available Not Available No t Available norethindro ne acetate 5 mg tablet TAKE 1 TABLET BY MOUTH EVERY DAY. 04/17 completed Not Available Not Available Not Available ergocalcife rol (vitamin D2) 1,250 mcg (50,000 unit) capsule TAKE 1 CAPSULE BY MOUTH EVERY WEEK DIRECTED 2023 active Not Available Not Available Not Avai lable ibuprofen 600 mg tablet TAKE 1 TABLET BY MOUTH EVERY 6 HOURS NEEDED 04/17 completed Not Available Not Available Not Available oxybutynin chloride 5 mg tablet TAKE 1 TABLET BY MOUTH THREE TIMES DAILY NEEDED FOR BLADDER SPASMS 04/17 completed Not Available Not Available Not Available ondansetron 4 mg disintegrat ing tablet DISSOLVE ONE TABLET BY MOUTH EVERY 8 HOURS 04/17 completed Not Available Not Available Not Available doxycycline hyclate 100 mg tablet TAKE 1 TABLET BY MOUTH EVERY 12 HOURS FOR 7 DAYS active Not Available Not Available No t Available Miconazole- 3 200 mg-2 % (9 gram) vaginal kit 04/17 completed Not Available Not Available Not Available nitrofurant oin monohydrate /macrocryst als 100 mg capsule TAKE 1 CAPSULE BY MOUTH EVERY 12 HOURS 04/17 completed Not Available Not Available Not Available FeroSul 325 mg (65 mg iron) tablet active Not Available Not Available Not Available BinaxNOW COVID-19 Ag Self Test kit TEST DIRECTED TODAY 04/20 completed Not Available Not Available Not Available Vitals Date Recorded Body height Body mass index (BMI) Body weight Systolic blood pressure Diastolic blood pressure Provider Name and Address Organization Details Last Updated DateTime 05/09/2022 147.32 cm 40.8 kg/m2 27721.51 g 131 mm[Hg] 86 mm[Hg] [facility] 2 14:04:56 Date Recorded Body height Body mass index (BMI) Body weight Systolic blood pressure Diastolic blood pressure Provider Name and Address Organization Details Last Updated DateTime 11/07/2022 147.32 cm 42.4 kg/m2 39944.25 g 137 mm[Hg] 86 mm[Hg] [facility] 2 15:44:15 Date Recorded Body height Body mass index (BMI) Body weight Systolic blood pressure Diastolic blood pressure Provider Name and Address Organization Details Last Updated DateTime 04/17/2023 147.32 cm 45.8 kg/m2 88370.73 g 133 mm[Hg] 80 mm[Hg] [facility] 3 17:38:59 Date Recorded Body height Body mass index (BMI) Body weight Systolic blood pressure Diastolic blood pressure Provider Name and Address Organization Details Last Updated DateTime 07/05/2023 147.32 cm 45.4 kg/m2 30192.54 g 141 mm[Hg] 78 mm[Hg] [facility] 3 14:47:14 Date Recorded Body height Body mass index (BMI) Body weight Systolic blood pressure Diastolic blood pressure Provider Name and Address Organization Details Last Updated DateTime 04/20/2024 147.32 cm 45.4 kg/m2 61009.54 g 116 mm[Hg] 76 mm[Hg] Leslie Roa [facility] 4 11:12:28 Social History Question Answer Notes LastModified by Organizat ion Details LastModified Time Tobacco Smoking Status Current Every Day Smoker Magnolia Villagran joanne [facility] 02/14/2022 14:36:57 What Is Your Level Of Alcohol Consumption? Occasional [email or web address] Information not available 04/20/2024 How Many Years Have You Consumed Alcohol? 25 [email or web address] Information not available 04/20/2024 Are You Blind Or Do You Have Difficulty Seeing? No [email or web address] Information not available 04/20/2024 What Is Your Level Of Caffeine Consumption? Occasional [email or web address] Information not available 04/20/2024 How Much Tobacco Do You Chew? None [email or web address] Information not available 04/20/2024 In The 14 Days Before Symptom Onset, Have You Had Close Contact With A Laboratory-confir med COVID-19 While That Case Was Ill? No [email or web address] Information not available 04/20/2024 In The 14 Days Before Symptom Onset, Have You Had Close Contact With A Person Who Is Under Investigation For COVID-19 While That Person Was Ill? No [email or web address] Information not available 04/20/2024 Have You Been To An Area Known To Be High Risk For COVID-19? No Information not available 04/20/2024 Are You Deaf Or Do You Have Serious Difficulty Hearing? No [email or web address] Information not available 04/20/2024 What Is The Highest Grade Or Level Of School You Have Completed Or The Highest Degree You Have Received? [id number] [email or web address] Information not available 04/20/2024 Are There Any Guns Present In Your Home? No [email or web address] Information not available 04/20/2024 Do You Use Protection During Sex? No [email or web address] Information not available 04/20/2024 Do You Use Your Seat Belt Or Car Seat Routinely? Yes [email or web address] Information not available 04/20/2024 Do You Have Smoke And Carbon Monoxide Detectors In Your Home? Yes Information not available 04/20/2024 At What Age Did You Start Smoking Tobacco? 20 [email or web address] Information not available 04/20/2024 Do You Feel Stressed (tense, Restless, Nervous, Or Anxious, Or Unable To Sleep At Night)? [id number] [email or web address] Information not available 04/20/2024 Do You Use Any Illicit Or Recreational Drugs? No [email or web address] Information not available 04/20/2024 Do You Use Sunscreen Routinely? No [email or web address] Information not available 04/20/2024 How Many Years Have You Smoked Tobacco? 20 [email or web address] Information not available 04/20/2024 Have You Used IV Drugs? No [email or web address] Information not available 04/20/2024 Sex: Unknown Functional Status Question Answer Note LastModified by Organizat ion Details LastModified Time Do you have difficulty walking or climbing stairs? No [email or web address] Information not available 04/20/2024 Are you able to walk? YESWOREST [email or web address] Information not available 04/20/2024 Are you able to care for yourself? Yes [email or web address] Information not available 04/20/2024 Do you have difficulty dressing or bathing? No Information not available 04/20/2024 What is your exercise level? Moderate Information not available 04/20/2024 Mental Status None recorded. Family History Nothing Reported. Medical History Condition Response Other Y Anxiety Disorder Y Gynecological History Statement/Question Response Abnormal Pap N Date of Last Mammogram Date of LMP 02/08/2022 Sexually Active? Y Age of first menstrual cycle 11 Date of Last Pap Smear 04/17/2023 Sexual Problems? N Current Control Method Hysterectom y Desired Control Method Hysterectom y Obstetrics History GPAL:G 5 P 3 1 1 4 Type Value Full Term 3 Spontaneous 1 Premature 1 Living 4 Total 5 Past Encounters Encounter ID Performer Location Encounter Start Date Encounter Closed Date Diagnosis/Indication Diagnosis SNOMED-CT Code Diagnosis ICD10 Code Diagnosis Note [id number] Daniel Edwards MD [place] [address] [address] 02/14/2022 14:23:09 02/14/2022 15:51:23 Abnormal uterine bleeding 7305396252 9100 N93.9 Regular very heavy menses. Has accidents. Bleeds around 2 large pads. Agreed to ultrasound and to meet after the ultrasound . [id number] Tere Mccormick [place] [address] [address] 02/15/2022 15:37:17 02/15/2022 16:34:20 Abnormal uterine bleeding [id number] 9100 N93.9 Regular very heavy menses. Has accidents. Bleeds around 2 large pads. Agreed to ultrasound and to meet after the ultrasound . [id number] Daniel Edwards MD [place] [address] [address] 02/27/2022 12:27:53 02/27/2022 16:18:09 Menorrhagia 462845020 N92.0 This patient is a 41-year-ol d female presents for follow-up on severe menorrhagi a and dysmenorrh ea. Patient has profound bleeding. Her menorrhagi a causes accidents. It affects her ability to work. She cannot work due to the pain and the bleeding. She gets blood in her car. Ultrasound was reviewed today. She has an enlarged fibroid uterus with 2 very large fibroid tumors. We discussed medical treatments . The patient wants definitive medical treatment. We talked about surgeries. We agreed to perform total laparoscop ic hysterecto my bilateral salpingo-o ophorectom y. She understand s what oophorecto my means in this situation. She understand s that a means menopause. She understand s that she may have hot flashes that may be uncontroll able. She understand s that she may lose a sense of well-being and sexual desire in sexual thought. She understand s these risks and is ready to proceed with oophorecto my bilaterall y. We spent over 35 minutes face-to-fa ce today. More than 50% of that was counseling . We made a decision to perform surgery. This is a very complex issue. Uterine leiomyoma 272007 05 D25.9 Dysmenorrhea [id number] N 94.6 [id number] Daniel Edwards MD [place] [address] [address] 03/19/2022 09:44:39 03/19/2022 11:01:26 Menorrhagia 701843778 N92.0 Pain in pelvis 78082591 R10.2 Uterine leiomyoma 622914 05 D25.9 this patient is a 41-year-ol d female who presents for severe menorrhagi a. Patient has 2 very large fibroids. She has extraordin deysi bleeding. Her vaginal bleeding is profound and has caused her significan t distress in her work life. She has had to leave work at times. She has gotten blood passing through her clothing. She has gotten blood in her car. She leaks around pads and tampons together. Ablation is not appropriat e in this situation given the size of the fibroids. Medical therapy is certain not to work with the exception of GnRH agonist. GnRH agonists are not a long-term solution and are expensive. We have agreed to perform total laparoscop ic hysterecto my with removal of fallopian tubes. She intends to keep her ovaries. the patient also has profound pain. She presented today and is not bleeding but is in severe cramping up pelvic pain. She is having trouble going to work today. This is causing her some instabilit y in her workplace and concerned about losing her job. The patient understand s the procedure. The procedure was described to the patient in great detail. the patient also understand s the risks. The risks were also explained in detail. She understand s that injuries May occur during surgery. She understand s these injuries can result in hospitaliz ation, more surgery, and severe illness. She understand s there is risk of hemorrhage and infection. [id number] Daniel Edwards MD [place] [address] [address] 04/11/2022 14:46:54 04/12/2022 13:42:31 Constipation [id number] K59.00 Postoperative pain 40411 9007 G89.18 this patient is a 41-year-ol d female who presents for postop follow-up. She had a total laparoscop ic hysterecto my and bilateral salpingect lowell that was complicate d by ureter injury. There was a thermal injury to the ureter that was temporized with a stent placed by Urology. She is very uncomforta ble with the stent. She appears to have bladder spasms. She is complainin g of leaking urine. We discussed the complicati on with her . We discussed the difficult nature of the case with the large fibroids and scarring on the pelvic sidewalls. , the distortion of the anatomy around the cervix on the right side. She was reminded and she agreed that we had a talked about plate doing the case as a laparotomy . That is what I originally recommende d that we do it is a laparotomy and she acknowledg es that today. We agreed to treat her bladder spasm a high dose of oxybutynin . We prescribed more hydrocodon e today for pain control. She also prescribed 100 mg of ibuprofen. She is asked follow-up in 2 weeks. [id number] Daniel Edwards MD [facility] [address],[place] [address] 04/25/2022 13:44:12 04/25/2022 20:49:16 [id number] Daniel Edwards MD [facility] [address],[place] [address] 04/25/2022 13:57:22 04/26/2022 15:32:08 Urge incontinence of urine [id number] N39.41 This patient is a 41-year-ol d female presents for follow-up on surgical complicati on. She had a normal injury to the ureter. She has a Better control of her bladder. She has increased her dose of oxybutynin . Her pain is reasonably well controlled now. She has a appointmen t next week to evaluate her stent And injury. We will check for patency of the ureter after removal of the stent. We filled out her disability paperwork today. She return in 2 weeks. We talked about pain management bladder control. [id number] Daniel Edwards MD [facility] [address],[place] [address] 05/09/2022 13:34:08 05/09/2022 14:32:21 Menorrhagia [id number] N92.0 This patient is a 41-year-ol d female presents for postop follow-up. She tells up today after having her stent removed from ureter yesterday. She is much more comfortabl e. She is doing well. She has no flank pain on the right. She has greatly diminished urge. She continues taking antibiotic s for the urinary tract infection that she had. She will follow up as needed. She is thrilled to have the stent out and the uterus. [id number] Daniel Edwards MD [facility] [address],[place] [address] 11/07/2022 15:17:39 11/08/2022 14:00:48 Postoperative complication [id number] T81.9XXS This patient is a 41-year-ol d female presents for discussion of recent disability . She has been only able to walk normal a since a recent surgery. I observed her walking. She has changes and no muscle strength or coordinati on or neurologic function of the right leg. She is unable to walk without assistance . She has seen neurology. And her primary care doctor. She has been receiving physical therapy. She has been unable to walk since September 19. Her inability will continue for an unknown /unspecifi ed amount of time. [id number] Daniel Edwards MD [facility] [address],[place] [address] 04/17/2023 16:42:18 04/17/2023 18:25:26 Gynecologic examination [id number] Z01.419 Annual gynecologi jacobo exam performed. Patient will come back in a year unless there are new symptoms. Suggest Calcium with Vitamin D if not eating in diet. Patient advised to get annual flu shot. Recommend yearly physicals and preform monthly breast exams. Genetic testing is available for patients with family history of cancer. Engage in safe sexual practices, use condoms. Encouraged to have daily exercise. Avoid tobacco and illicit drugs, moderation of alcohol. If BMI greater than 25 dietary consult advised. If you have any questions please call or email. Mammogram - ordered Colonoscop y - na Cholestero l - ordered Pap - today Edema of l ower extremity [id number] R60.0 Bacterial vaginosis [id number] N76.0 [id number] Daniel Edwards MD [facility] [address],[place] [address] 04/20/2024 10:52:11 04/20/2024 12:17:10 Gynecologic examination [id number] Z01.419 Z11.51 Annual gynecologi jacobo exam performed. Patient will come back in a year unless there are new symptoms. Suggest Calcium with Vitamin D if not eating in diet. Patient advised to get annual flu shot. Recommend yearly physicals and preform monthly breast exams. Genetic testing is available for patients with family history of cancer. Engage in safe sexual practices, use condoms. Encouraged to have daily exercise. Avoid tobacco and illicit drugs, moderation of alcohol. If BMI greater than 25 dietary consult advised. If you have any questions please call or email. Mammogram - ordered Colonoscop y - na Cholestero l - ordered Pap - today Depressive disorder 3548 9007 F32.A [id number] Daniel Edwards MD [facility] [address],[place] [address] 07/05/2023 14:19:24 07/05/2023 15:37:39 Urinary symptoms [id number] R39.9 42-year-ol d female presents for symptoms of urinary tract infection. Reports urgency, frequency. She has spells a odor to her urine. We agreed to treat for urinary tract infection. Health Concerns Section Related Observation LastModified by Organization Detai ls LastModified Time None Recorded Concern Status LastModified by Organization Details LastModified Time None Recorded Advance Directives Directive None Recorded Payers Encounter Date Sequence Insurance Name Policy Number Policy Quintero Covered Member ID Quintero Member ID Guarantor Name 05/09/2022 1 [facility] (MEDICAID H[facility]) [id number] Heaven Ulices [id number] Heaven J [place] 11/07/2022 1 [facility] (MEDICAID HMO) [id number] Heaven Ulices [id number] Heaven J [place] 04/17/2023 1 [facility] (MEDICAID HMO) [id number] Heaven Powhatan [id number] Heaven J Ulices 07/05/2023 1 [facility] (MEDICAID HMO) [id number] Heaven Powhatan [id number] Heaven J Ulices 04/20/2024 1 [facility] (MEDICAID HMO) [id number] Heaven Ulices [id number] Heaven J Ulices Notes Date Note Type Note Provider Name and Address Organization Details Recorded Time 05/09/2022 text/html This patient is a 41-year-old female presents for postop follow-up. She tells up today after having her stent removed from ureter yesterday. She is much more comfortable. She is doing well. She has no flank pain on the right. She has greatly diminished urge. She continues taking antibiotics for the urinary tract infection that she had. She will follow up as needed. She is thrilled to have the stent out and the uterus. Daniel Edwards MD [address], [place], [address], [facility] 05/09/2022 14:29:14 11/07/2022 text/html This patient is a 41-year-old female presents for discussion of recent disability. She has been only able to walk normal a since a recent surgery. I observed her walking. She has changes and no muscle strength or coordination or neurologic function of the right leg. She is unable to walk without assistance. She has seen neurology. And her primary care doctor. She has been receiving physical therapy. She has been unable to walk since September 19. Her inability will continue for an unknown /unspecified amount of time. Daniel Edwards MD [address], [place], [address], [facility] 11/07/2022 22:01:39 04/17/2023 text/html Annual GYNReport ed bypatient.History:n o gynecologic complaints Urinary symptoms:No hematuria Vulva:No genital lesion Vagina:Normal vaginal discharge Breast:No breast pain; No breast lump Current Contraception:Satis fied with current contraception Sexual complaints:No sexual complaints Psychological symptoms:No depression; No anxiety Preventive measures:Encourage self breast examination; Encourage regular exercise Daniel Edwards MD [address], [place], [address], [facility] 04/17/2023 18:09:55 07/05/2023 text/html 42-year-old milton daley presents for symptoms of urinary tract infection. Reports urgency, frequency. She has spells a odor to her urine. We agreed to treat for urinary tract infection. Daniel Edwards MD [address], [place], [address], [facility] 07/05/2023 15:36:14 04/20/2024 text/html Annual GYNReport ed bypatient.History:n o gynecologic complaints Menstrual cycle:Normal menses Urinary symptoms:No hematuria Vulva:No genital lesion Vagina:Normal vaginal discharge Breast:No breast pain; No breast lump Sexual complaints:No sexual complaints; No pain during intercourse Menopausal Symptoms:No menopausal symptoms Psychological symptoms:No depression; No anxiety Preventive measures:Encourage self breast examination; Encourage regular exercise Daniel Edwards MD [address], [place], [address], [facility] 04/20/2024 12:12:12 OBGyn Episode Ob Episode Information Episode Created Date Number of Fetuses Patient Bloodtype Patient rh Status Prepregnancy Weight lbs Domestic Partner Domestic Partner Phone Father Name Supervisor Phosphoric Acid Status 02/15/20 22 1 CLOSED Fetus Data First Name Last Name Admitted to NICU Weight (g) Sex Living Outcome Pediatric Complications Fetus ID Race Codes Race Delivery Type 3259.96 5704 M Full Term [id number] Vacuum Assisted Vaginal Delivery Jerzy Calculation Initial Jerzy Date Initial Exam Date Initial Exam Provider Initial Ultrasound Date Last Menstrual Period Date Ultra Sound Weeks Gestation 0 Eighteen To Twenty Week Jerzy Update Ultra Sound Date Fundal Height At Umbil Quickening Date Ultra Sound Latest Weeks Gestation Final Jerzy Confirmed By Final Jerzy Confirmed Date Final Jerzy Date Ultra Sound Latest Days Gestation 0 0 Menstrual History Last Menstrual Date Menses Monthly On Bcp Conception Prior Menses Frequency Hcg Plus Date Menarche Onset Age Delivery Information Delivery Date Delivery Type Labor Anesthesia Weeks Gestation Incision Type Labor Labor Length Hrs Delivered By Post Complications Tubal Sterilization Discharge Date Comments 7 40 Discharge Information Feeding Method Contraceptive Method Maternal HG B and HCT Levels Ob Episode Information Episode Created Date Number of Fetuses Patient Bloodtype Patient rh Status Prepregnancy Weight lbs Domestic Partner Domestic Partner Phone Father Name Supervisor Phosphoric Acid Status 02/15/20 22 1 CLOSED Fetus Data First Name Last Name Admitted to NICU Weight (g) Sex Living Outcome Pediatric Complications Fetus ID Race Codes Race Delivery Type 1644.27 1 M Prematur e [id number] Primary Jerzy Calculation Initial Jerzy Date Initial Exam Date Initial Exam Provider Initial Ultrasound Date Last Menstrual Period Date Ultra Sound Weeks Gestation 0 Eighteen To Twenty Week Jerzy Update Ultra Sound Date Fundal Height At Umbil Quickening Date Ultra Sound Latest Weeks Gestation Final Jerzy Confirmed By Final Jerzy Confirmed Date Final Jerzy Date Ultra Sound Latest Days Gestation 0 0 Menstrual History Last Menstrual Date Menses Monthly On Bcp Conception Prior Menses Frequency Hcg Plus Date Menarche Onset Age Delivery Information Delivery Date Delivery Type Labor Anesthesia Weeks Gestation Incision Type Labor Labor Length Hrs Delivered By Post Complications Tubal Sterilization Discharge Date Comments 5 28 distress Discharge Information Feeding Method Contraceptive Method Maternal HG B and HCT Levels Ob Episode Information Episode Created Date Number of Fetuses Patient Bloodtype Patient rh Status Prepregnancy Weight lbs Domestic Partner Domestic Partner Phone Father Name Supervisor Phosphoric Acid Status 02/15/20 22 1 CLOSED Fetus Data First Name Last Name Admitted to NICU Weight (g) Sex Living Outcome Pediatric Complications Fetus ID Race Codes Race Delivery Type 2863.07 2704 Full Term [id number] Vaginal Delivery Jerzy Calculation Initial Jerzy Date Initial Exam Date Initial Exam Provider Initial Ultrasound Date Last Menstrual Period Date Ultra Sound Weeks Gestation 0 Eighteen To Twenty Week Jerzy Update Ultra Sound Date Fundal Height At Umbil Quickening Date Ultra Sound Latest Weeks Gestation Final Jerzy Confirmed By Final Jerzy Confirmed Date Final Jerzy Date Ultra Sound Latest Days Gestation 0 0 Menstrual History Last Menstrual Date Menses Monthly On Bcp Conception Prior Menses Frequency Hcg Plus Date Menarche Onset Age Delivery Information Delivery Date Delivery Type Labor Anesthesia Weeks Gestation Incision Type Labor Labor Length Hrs Delivered By Post Complications Tubal Sterilization Discharge Date Comments 199 8 38 Discharge Information Feeding Method Contraceptive Method Maternal HG B and HCT Levels Ob Episode Information Episode Created Date Number of Fetuses Patient Bloodtype Patient rh Status Prepregnancy Weight lbs Domestic Partner Domestic Partner Phone Father Name Supervisor Phosphoric Acid Status 02/15/20 22 1 CLOSED Fetus Data First Name Last Name Admitted to NICU Weight (g) Sex Living Outcome Pediatric Complications Fetus ID Race Codes Race Delivery Type 2806.37 3704 F Full Term [id number] Vaginal Delivery Jerzy Calculation Initial Jerzy Date Initial Exam Date Initial Exam Provider Initial Ultrasound Date Last Menstrual Period Date Ultra Sound Weeks Gestation 0 Eighteen To Twenty Week Jerzy Update Ultra Sound Date Fundal Height At Umbil Quickening Date Ultra Sound Latest Weeks Gestation Final Jerzy Confirmed By Final Jerzy Confirmed Date Final Jerzy Date Ultra Sound Latest Days Gestation 0 0 Menstrual History Last Menstrual Date Menses Monthly On Bcp Conception Prior Menses Frequency Hcg Plus Date Menarche Onset Age Delivery Information Delivery Date Delivery Type Labor Anesthesia Weeks Gestation Incision Type Labor Labor Length Hrs Delivered By Post Complications Tubal Sterilization Discharge Date Comments 1 38 Discharge Information Feeding Method Contraceptive Method Maternal HG B and HCT Levels Ob Episode Information Episode Created Date Number of Fetuses Patient Bloodtype Patient rh Status Prepregnancy Weight lbs Domestic Partner Domestic Partner Phone Father Name Supervisor Phosphoric Acid Status 02/15/20 22 1 CLOSED Fetus Data First Name Last Name Admitted to NICU Weight (g) Sex Living Outcome Pediatric Complications Fetus ID Race Codes Race Delivery Type , Spontane ous [id number] Jerzy Calculation Initial Jerzy Date Initial Exam Date Initial Exam Provider Initial Ultrasound Date Last Menstrual Period Date Ultra Sound Weeks Gestation 0 Eighteen To Twenty Week Jerzy Update Ultra Sound Date Fundal Height At Umbil Quickening Date Ultra Sound Latest Weeks Gestation Final Jerzy Confirmed By Final Jerzy Confirmed Date Final Jerzy Date Ultra Sound Latest Days Gestation 0 0 Menstrual History Last Menstrual Date Menses Monthly On Bcp Conception Prior Menses Frequency Hcg Plus Date Menarche Onset Age Delivery Information Delivery Date Delivery Type Labor Anesthesia Weeks Gestation Incision Type Labor Labor Length Hrs Delivered By Post Complications Tubal Sterilization Discharge Date Comments 8 Discharge Information Feeding Method Contraceptive Method Maternal HG B and HCT Levels
--- OUTSIDE RECORDS SUMMARY | 2024-12-23 21:12 | XMS_ITS | Referral Summary ---
Author Organization [facility] Address [address] [place] [address] Care Team Providers Care Director [employer]ery [employer] Name Role Phone [facility] Primary [...] on file Legal Sex Female 10:35 PM TOOL TROUBLE SHOOTER Gender Identity Not on file Sexual Orientation Not on file Last Filed Vital Signs Vital Sign Reading Time Taken Comments Blood Pressure 111/56 11/01/2022 11:40 PM TOOL TROUBLE SHOOTER Pulse 99 11/01/2022 11:40 PM TOOL TROUBLE SHOOTER Temperature 36.8 C (98.2 F) 11/01/2022 5:39 PM TOOL TROUBLE SHOOTER Respiratory Rate 15 11/01/2022 11:40 PM TOOL TROUBLE SHOOTER Oxygen Saturation 98% 11/01/2022 11:40 PM TOOL TROUBLE SHOOTER Inhaled Oxygen Concentration - - Weight 91.6 kg (202 lb) 11/01/2022 1:30 PM TOOL TROUBLE SHOOTER Height 149.9 cm (4' 11 ) 11/01/2022 1:30 PM TOOL TROUBLE SHOOTER Body Mass Index 40.8 11/01/2022 1:30 PM TOOL TROUBLE SHOOTER Plan of Treatment Not on file Insurance [facility] Care Teams Director Nursery School Relationship Specialty Start Date End Date [facility] PCP - General 01/01/17
--- OUTSIDE RECORDS SUMMARY | 2024-12-23 21:12 | XMS_ITS | Continuity of Care Document ---
Author Organization [facility] Address [address] [place] [address] Phone Care Team Providers Care Relationship Advisor Name Role Phone Unavailable Unavailable Unavailable Allergies, Adverse Reactions, Alerts Substance Reaction Status Criticality Penicillins Hives/Skin Rash Active No Informati on Procedures Procedure Date COLLECTION OF VENOUS BLOOD BY VENIPUNCTU RE CULTURE, PRESUMPTIVE, PATHOGENIC ORGANIS MS, SCREENING ONLY; CULTURE, CHLAMYDIA, ANY SOURCE 10 OFFICE/OUTPATIENT VISIT, EST COLLECTION OF VENOUS BLOOD BY VENIPUNCTU RE CULTURE, PRESUMPTIVE, PATHOGENIC ORGANIS MS, SCREENING ONLY; CULTURE, CHLAMYDIA, ANY SOURCE 09 CYTP C/V AUTO THIN LYR PREPJ SCR SYS PHY S PERIODIC COMPREHENSIVE PREVENTIVE MED RE E/M; ESTABLISHED PATIENT; OFFICE O/P EST 5 MIN CYTP SLIDES C/V MNL SCR PHYS PERIODIC COMPREHENSIVE PREVENTIVE MED RE E/M; ESTABLISHED PATIENT; CHYLMD TRACH, DNA, AMP PROBE CULTURE, BACTERIAL; QUANTITATIVE COLONY COUNT, URINE N.GONORRHOEAE, DNA, AMP PROB URNLS DIP STICK/TABLET RGNT AUTO W/O CAM Injection, medroxyprogesterone acetate ( Depo-Provera), 150 mg OFFICE OUTPT EST 10 MIN URINE TEST, BY VISUAL COLOR CO MPARISON METHODS Advance Directives Directive Yes / No Effective Date File Name No Information Encounters Encounter Description Practice Location Reason(s) For Visit Diagnoses Date Provider Providers Copied on Encounter [facility], [address], [place], [place], [id number] , [place] tel: [phone] [facility] No Information 6 No Information OFFICE/OUTPATI ENT VISIT, EST [facility], [address], [place], [place], [address] , [place] tel: [phone] [facility] pt c/o strong urine (chief complaint) STD check (chief complaint) Screening examination for venereal diseaseDysuria 0 No Information PERIODIC COMPREHENSIVE PREVENTIVE MED REE/M; ESTABLISHED PATIENT; 18-39 [facility], [address], [place], [place], [address] , [place] tel: [phone] [facility] annual visit (chief complaint) Routine gynecological examinationPROCR MGMT CNSL/ADV NECOther disorders of menstruation and other abnormal bleeding from female genital tract [address] [facility], [place], [place], [id number], [place]. tel:[phone] OFFICE O/P EST 5 MIN [facility], [address], [place], [place], [address] , [place] tel: [phone] [facility] OTH SPCF CHLAMYDIAL INFC 6 No Information PERIODIC COMPREHENSIVE PREVENTIVE MED REE/M; ESTABLISHED PATIENT; 18-39 [facility], [address], [place], [place], [address] , [place] tel: [phone] [facility] ROUTINE PERSONNEL RECORDS CLERK EXAMINATIONDYSUR [place] 6 No Information OFFICE OUTPT EST 10 MIN [facility], [address], [place], [place], [address] , [place] tel: [phone] [facility] CONTRACEPT SURVEILL NEC 6 No Information Family History Family Member Type Diagnosis Age At Onset Problem (finding) Family history of hyper tension Problem (finding) Family history of Diabe j[place] mellitus Payers Payer name Insurance type Covered libertarian ID Authoriza tion(s) Medicaid - Medical 11 [id number] Social History Type Description Quantity Date Captured Comments Alcohol Use Details Unknown Caffeine Use Details Unknown Tobacco Use Status Smoking Status No Information Sex Female Chief Complaint And Reason For Visit No Information Reason For Referral Reason For Referral No Information Plan Of Treatment Date Type Action Status Goal Urinalysis. Due on 10 due Goal BMP fasting. Due on due Goal PAP. Due on due Goal Breast exam. Due on due Goal BMP fasting. Due on due Goal Breast exam. Due on due Goal PAP. Due on due Goal Urinalysis. Due on due History Of Present Illness Encounter Date Complaint History Of Prese nt Illness No Information Functional Status Date Functional Assessmen t No Information Instructions Date Instruction Additional Infor mation No Information Assessments Type Assessment Date No Information Patient Care Teams Name Effective Dates (start - stop) Status Members No Information
--- OUTSIDE RECORDS SUMMARY | 2024-12-23 21:12 | XMS_ITS | Clinical Summary ---
Author Organization [facility] Address [address] [place] [address] Phone Care Team Providers Care Aircraft Layout Worker Name Role Phone Unavailable Primary Care Provider Unavailabl e Allergies Active Allergy Reactions Criticality Noted Date Comments Penicillins Unknown 09/11/2017 Medications PARoxetine HCl (PAXIL) 10 mg tablet paroxetine 10 mg tablet 0 Active ciprofloxacin HCl (CIPRO) 250 mg tablet Take 250 mg by mouth 2 times daily. Active HYDROcodone-kenneth taminophen 7.5-300 mg TabletIndicatio ns:Ureteral fistula Take 1 Tablet by mouth every 6 hours as needed for Pain. Max Daily Amount: 4 Tablets 24 Tablet 2 Active fluconazole (DIFLUCAN) 200 mg tablet Take 1 Tablet (200 mg) by mouth daily. 3 Tablet 1 08/15/2022 6:27 PM CDT 2 Active Miconazole Nitrate 200 mg- 2 % (9 gram) Kit Insert 1 Applicator vaginally daily at bedtime. 1 Each 7 08/15/2022 6:27 PM CDT 2 Active furosemide (Lasix) 40 mg tablet Take 1 Tablet (40 mg) by mouth daily. 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 No 03/01/2023 Comments No Sex and Gender Information Value Date Recorded Sex Assigned at Not on file Legal Sex Female 2:55 PM CDT Gender Identity Not on file Sexual Orientation Not on file Last Filed Vital Signs Vital Sign Reading Time Taken Comments Blood Pressure 146/84 03/01/2023 3:21 PM CDT Pulse 89 03/01/2023 3:21 PM CDT Temperature 36.8 C (98.3 F) 03/01/2023 3:21 PM CDT Respiratory Rate 18 03/01/2023 3:21 PM CDT Oxygen Saturation 99% 03/01/2023 3:21 PM CDT Inhaled Oxygen Concentration - - Weight 89.8 kg (198 lb) 03/01/2023 12:10 PM CDT Height 147.3 cm (4' 10 ) 03/01/2023 12:10 PM CDT Body Mass Index 41.38 03/01/2023 12:10 PM CDT Plan of Treatment Health Maintenance Due Date Last Done Comments PNEUMOCOCCAL VACCINE 0-64 YE ARS (1 of 2 - PCV) 1984 DTAP/TDAP/TD VACCINES (1 - Tdap) 1997 HEPATITIS B VACCINES (1 of 3 - 19+ 3-dose series) 1997 CERVICAL CANCER SCREENING 2008 BREAST CANCER SCREENING 2018 COLORECTAL SCREENING 2023 Colorectal Cancer Screening 2023 FIT-DNA Q 3 years 2023 FIT/FOBT Q 1 year 2023 Flex Sig/CT Colonography Q 5 years 2023 INFLUENZA VACCINE (#1) 2024 HPV VACCINES Aged Out No longer eligi ble based on patient's age to complete this topic Medical Devices Implanted Type [employer] Advisor Device Identifier Shelf Expiration Date Model / Serial / Lot Clip Tigist [id number] [id number] - Csc - [id number] Implanted:Qty : 1 on 08/08/2022 by Gus England MD at [facility] Clip Right: Abdomen TELEFLEX- WECK CLOSURE SYS 11/27/2026 [id number] / / [id number] Stent Contour [id number] - [id number] Implanted:Qty : 1 on 08/08/2022 by Gus England MD at [facility] Stent Right: Ureter [employer]- UROLOGY/RHEUMATOLOGY NURSE [id number] 06/05/2025 [id number] 20 [id number] Insurance [employer] RX [facility] [employer] Advance Directives For more information, please contact: [phone] * Full Code (Latest Code Status on File) Date Activated Date Inactivated Comments 08/08/2022 2:44 PM 08/15/2022 8:15 PM * Full Code Date Activated Date Inactivated Comments 08/08/2022 7:22 AM 08/08/2022 2:44 PM * Full Code Date Activated Date Inactivated Comments 08/08/2022 6:16 AM 08/08/2022 7:22 AM
[2024-12-23 21:22] VITALS: BMI 43.2
--- NOTE | 2024-12-23 21:23 | ADMGEN ---
This patient, Heaven Elena, was admitted to 2 Medical Room 251-01. Patient/family oriented to hospital policies and general routines including ID bracelet, bed and alarms, visiting hours, pain management, procedures, bathroom and other care routines, personal items, smoking policy, room service/diet, and visiting hours. Information on how to activate the Rapid Response Team has been discussed. Patient/Family are encouraged to report perceived risks to care and to ask questions if they do not understand what they are told or what they should do.
[2024-12-23 22:35] VITALS: BP 143/78; PULSE 85; RESP 16; TEMP 36.9; O2SAT 99
[2024-12-23 22:54] LABS: Hematocrit 36.7 % (37.0-47.0); Hemoglobin 12.3 g/dL (12.0-15.0); Mean Corpuscular HGB Conc 33.5 g/dl (32-36); Mean Corpuscular Hemoglobin 28.5 pg (26-34); Mean Platelet Volume 9.4 fl (7.4-10.4); Platelet Count Result 338 k/mm3 (150-375); Red Blood Count 4.32 M/mm3 (4.2-5.4); Red Cell Distribution Width 13.1 % (11.5-14.5); White Blood Count 14.3 K/mm3 (4.5-10.0)
[2024-12-23 23:05] LABS: Alanine Aminotransferase 12 U/L (6-35); Albumin Level 3.3 g/dL (3.5-5.1); Alkaline Phosphatase 66 U/L (38-126); Anion Gap 9 mmol/L (4-12); Aspartate Amino Transferase 14 U/L (14-36); Bilirubin,Total 0.3 mg/dL (0.2-1.3); Blood Urea Nitrogen 9 mg/dL (7-17); Calcium 8.8 mg/dL (8.4-10.2); Carbon Dioxide 23 mmol/L (22-30); Chloride 108 mmol/L (98-107); Estimated Glomerular Filt Rate > 60; Glucose 102 mg/dL (65-110); Potassium 3.5 mmol/L (3.4-5.0); Sodium 140 mmol/L (137-145)
[2024-12-23 23:07] LABS: INR 0.9; Prothrombin Time 12.9 Seconds (11.1-14.7)
[2024-12-23] MEDS: IBUPROFEN IV 800 MG/200 ML 800 MG/200 ML BAG 370.37 MG IVPB (23:24)
[2024-12-23] MEDS: HYDROmorphone HCL INJ (*CRX) 1 MG/ML SYR 0.5 MG IV PUSH (23:26)
[2024-12-24] VITALS (14 sets, daily range): BP systolic 86–127; BP diastolic 47–75; PULSE 57–100; RESP 16–27; TEMP 36.4–37; O2SAT 96–100
[2024-12-24] MEDS: WATER FOR IRRIGATION, STERILE 1,000 ML BOTTLE 1000 ML (01:03)
[2024-12-24] MEDS: LACTATED RINGERS 1,000 ML 120 ML IV CONT ×2 (01:03→16:31)
[2024-12-24] MEDS: VANCOMYCIN 1,250 MG/NS 250 ML 1,250 MG/250 ML BAG 166.67 MG IVPB (02:08)
[2024-12-24 03:23] LABS: MRSA (PCR) NOT DETECTED (NOT DETECTE)
[2024-12-24] MEDS: VANCOMYCIN 1,000 MG/NS 250 ML 1,000 MG/250 ML BAG 250 MG IVPB (04:01)
[2024-12-24 06:02] LABS: Estimated Glomerular Filt Rate > 60
[2024-12-24] MEDS: IBUPROFEN IV 800 MG/200 ML 800 MG/200 ML BAG 200 MG IVPB ×2 (08:08→16:31)
--- NOTE | 2024-12-24 08:23 | PM.IMHP ---
H&P: HPI History of Present Illness Date/Time: 12/24/24 08:23 Chief Complaint: Umbilical wound Narrative: This is a 44-year-old woman who we have been following in the office after a robotic assisted laparoscopic incarcerated incisional hernia repair x3 with preperitoneal placement of Bard soft mesh, primary repair of incarcerated port site incisional hernia x1 performed on 10/30/[address] Vallecillo. Patient had been experiencing pain at the umbilicus with purulent drainage from that area. She has also developed a cough. She otherwise has been recovering well and is tolerating a diet and bowels are moving. She was seen in follow-up by Dr. Vallecillo yesterday in the office yesterday and found to have purulent drainage from her umbilicus and suspicion for an abdominal wall abscess. She has been directly admitted for antibiotics and CT scan to further evaluate need for possible surgical management. Review of Systems Review of Systems: All systems reviewed & are unremarkable except as noted in HPI and below PMFSH Past Medical History Medical History Morbid obesity Smoker Surgical History Surgical History History of incisional hernia repair 10/30/24 Robotic assisted laparoscopic incarcerated incisional hernia repair x3 with preperitoneal placement of Bard soft mesh, primary repair of incarcerated port site incisional hernia x1. Dr. Vallecillo Hx of hysterectomy History of section Family History Family History (Updated 12/23/24 @ 22:13 by Maryse Carey RN) Father Chronic obstructive pulmonary disease Pacemaker Other Diabetes mellitus Social History Social History Smoking packs per day: 1 Smoking cigarettes per day: 20.0 Years smoked: 23 Smoking pack-years: 23.00 Smoking status: Current every day smoker Tobacco type: cigarettes Additional smoking assessment comments: Down to 1/2 a pack a day. Alcohol intake: never Alcohol use details: very rarely. On holidays or very seldomly Substance use: current Substance use type: marijuana Other substance usage details: twice a day Do You Feel Safe in your Home?: Yes Lack of Transportation: No Lack of Food: Never True Current Housing: I Have Housing Concerned About Future Housing: No Difficulty Paying Gas/Electric Bills: No Difficulty Paying for Meds: YES Currently Unemployed: YES Education: Grade School Difficulty w/ Childcare or Family Care: No Living arrangements: with family Additional living arrangements comments: & SON Spiritual care concerns: No Meds Home Medications and Allergies Home Medications ?Medication ?Instructions ?Recorded ?Confirmed ?Type sertraline 25 mg tablet 25 mg PO DAILY 06/03/24 12/23/24 History ibuprofen 800 mg tablet (IBU) 800 mg PO TID PRN pain 12/23/24 12/23/24 History Allergies Allergy/AdvReac Type Severity Reaction Status Date / Time penicillin G Allergy Unknown Verified 12/23/24 13:23 Vital Signs Vital Signs - 24 hr 12/23/24 22:35 12/23/24 23:00 12/24/24 00:00 Temperature 98.5 F 98.6 F Pulse Rate 85 65 Respiratory Rate 16 16 Blood Pressure 143/78 H 127/73 Pulse Oximetry 99 100 Oxygen Delivery Room Air 12/24/24 05:59 Temperature 98.4 F Pulse Rate 60 Respiratory Rate 16 Blood Pressure 108/60 Pulse Oximetry 100 Oxygen Delivery Exam Const: General: comfortable and no acute distress Nutritional Appearance: obese Orientation/consciousness: patient oriented x3 HENMT: Head: normocephalic and atraumatic Ears: hearing grossly normal bilaterally Mouth: Yes moist mucous membranes Eyes: General: appearance normal, both eyes and all related structures Pupils: Equal, round and reactive pupils present Neck: Neck: normal visual inspection and full ROM Resp: Effort & Inspection: no respiratory distress Auscultation: clear to auscultation bilaterally Cardio: Rate: regular rate Rhythm: regular rhythm Peripheral pulses: Peripheral pulses 2+ throughout GI: Inspection: non-distended Other: Soft, obese. Purulent drainage from umbilicus. Very tender with swelling and slight erythema of the skin superior and jus tot the right of umbilicus. Skin: General skin exam: normal color Neuro: General: moves all extremities and no focal motor deficits Speech: normal speech Motor exam (neuro): 5/5 motor strength present throughout Extrem: General: normal to inspection and no edema Psych: Mental Status: mental status grossly normal Attitude: cooperative Insight: Good insight present (Psych) Judgement: Good judgement present (Psych) H&P: Results Labs Labs: Short CBC 12/23/24 Range/Units 22:49 WBC 14.3 H (4.5-10.0) K/mm3 Hgb 12.3 (12.0-15.0) g/dL Hct 36.7 L (37.0-47.0) % Plt Count 338 (150-375) k/mm3 BMP 12/23/24 12/24/24 22:49 05:14 Sodium 140 Potassium 3.5 Chloride 108 H Carbon Dioxide 23 BUN 9 Creatinine 0.67 L 0.51 L Glucose 102 Calcium 8.8 Liver Function 12/23/24 Range/Units 22:49 Total Bilirubin 0.3 (0.2-1.3) mg/dL AST 14 (14-36) U/L ALT 12 (6-35) U/L Alkaline Phosphatase 66 (38-126) U/L Albumin 3.3 L (3.5-5.1) g/dL Imaging CT scan - abdomen: Radiologist's impression: ITS Impressions Abdomen/Pelvis CT 12/24/24 06:05 Impression: Wound at the umbilicus with possible 2.4 x 0.8 cm early abscess or phlegmon with surrounding infiltrative/inflammatory changes. Cholelithiasis. Assessment and Plan Assessment and plan (1) Abscess of postoperative wound of abdominal wall: Code(s): T81.49XA - Infection following a procedure, other surgical site, initial encounter; L02.211 - Cutaneous abscess of abdominal wall Status: Acute Assessment and Plan: Labs [place] [id number] scan of the abdomen and pelvis showed a wound at the umbilicus with possible 2.4 x 0.8 cm early abscess or phlegmon with surrounding inflammatory changes. Discussed treatment options with the patient and we would recommend proceeding with incision and drainage of abdominal wall abscess. Description of the procedure, risks, benefits, alternatives, and expected recovery were discussed with the patient in detail. She agrees to proceed. She has been started on IV ceftriaxone and vancomycin, and added onto the surgery schedule for I & D today. (2) History of incisional hernia repair: Code(s): Z98.890 - Other specified postprocedural states; Z87.19 - Personal history of other diseases of the digestive system Status: Acute (3) Obesity, Class III, BMI 40-49.9 (morbid obesity): Code(s): E66.01 - Morbid (severe) obesity due to excess calories Status: Acute Plan I have discussed the patient's case and plan of care with Dr. Vallecillo.
[2024-12-24] MEDS: LACTATED RINGERS 1,000 ML 30 ML IV CONT (08:50)
--- NOTE | 2024-12-24 09:21 | P.PNAN_ITS ---
Anes - Initial Pre Proc Eval Procedure: Operation Date: 12/24/24 10:00 Proposed Procedures p Incision and Drainage Abdominal Abscess - Rolando Vallecillo MD Date/Time: 12/24/24 09:21 Surgeon: Rolando Vallecillo MD Pre Op Diagnosis: Abdominal wound abscess Patient Data Age: 44 Gender: F Height: 1.47 m Weight: 93.7 kg Last Vital Signs Temp 36.9 C 12/24/24 05:59 Pulse 60 12/24/24 05:59 Resp 16 12/24/24 05:59 BP 108/60 12/24/24 05:59 Pulse Ox 100 12/24/24 05:59 O2 Del Method Room Air 12/23/24 23:00 Allergies Allergy/AdvReac Type Severity Reaction Status Date / Time penicillin G Allergy Unknown Verified 12/23/24 13:23 Home Medications ?Medication ?Instructions ?Recorded ?Confirmed ?Type sertraline 25 mg tablet 25 mg PO DAILY 06/03/24 12/23/24 History ibuprofen 800 mg tablet (IBU) 800 mg PO TID PRN pain 12/23/24 12/23/24 History Laboratory Tests 12/23/24 12/24/24 12/24/24 22:49 02:07 05:14 WBC 14.3 H K/mm3 (4.5-10.0) RBC 4.32 M/mm3 (4.2-5.4) Hgb 12.3 g/dL (12.0-15.0) Hct 36.7 L % (37.0-47.0) MCV 85.0 fl (80-100) MCH 28.5 pg (26-34) MCHC 33.5 g/dl (32-36) RDW 13.1 % (11.5-14.5) Plt Count 338 k/mm3 (150-375) MPV 9.4 fl (7.4-10.4) PT 12.9 Seconds (11.1-14.7) INR 0.9 Sodium 140 mmol/L (137-145) Potassium 3.5 mmol/L (3.4-5.0) Chloride 108 H mmol/L (98-107) Carbon Dioxide 23 mmol/L (22-30) Anion Gap 9 mmol/L (4-12) BUN 9 mg/dL (7-17) Creatinine 0.67 L mg/dL 0.51 L mg/dL (0.7-1.0) (0.7-1.0) Estim Creat Clear Calc Not Reportable Not Reportable Estimated GFR > 60 > 60 (59 - ) (59 - ) Glucose 102 mg/dL (65-110) Calcium 8.8 mg/dL (8.4-10.2) Total Bilirubin 0.3 mg/dL (0.2-1.3) AST 14 U/L (14-36) ALT 12 U/L (6-35) Alkaline Phosphatase 66 U/L (38-126) Total Protein 7.0 g/dL (6.3-8.2) Albumin 3.3 L g/dL (3.5-5.1) Nasal MRSA (PCR) Not detected (NOT DETECTE) Blood Type O Positive Antibody Screen Negative Patient hx anesthesia problems: none Family hx anesthesia problems: none Results Review: All pre-operative results and documents have been reviewed as part of the pre- operative evaluation. [facility] Past Medical History Medical History Morbid obesity Smoker Surgical History Surgical History History of incisional hernia repair 10/30/24 Robotic assisted laparoscopic incarcerated incisional hernia repair x3 with preperitoneal placement of Bard soft mesh, primary repair of incarcerated port site incisional hernia x1. Dr. Vallecillo Hx of hysterectomy History of section Family History Family History Father Chronic obstructive pulmonary disease Pacemaker Other Diabetes mellitus Social History Social History Smoking packs per day: 1 Smoking cigarettes per day: 20.0 Years smoked: 23 Smoking pack-years: 23.00 Smoking status: Current every day smoker Tobacco type: cigarettes Additional smoking assessment comments: Down to 1/2 a pack a day. Alcohol intake: never Alcohol use details: very rarely. On holidays or very seldomly Substance use: current Substance use type: marijuana Other substance usage details: twice a day Do You Feel Safe in your Home?: Yes Lack of Transportation: No Lack of Food: Never True Current Housing: I Have Housing Concerned About Future Housing: No Difficulty Paying Gas/Electric Bills: No Difficulty Paying for Meds: YES Currently Unemployed: YES Education: Grade School Difficulty w/ Childcare or Family Care: No Living arrangements: with family Additional living arrangements comments: & SON Spiritual care concerns: No Anes - Eval Final PreProcedure Day of Procedure 12/24/24 09:21 Patient weight: morbidly obese Heart: regular rate and rhythm Lungs: decreased breath sounds Airway: Mallampati scale class III Neurological: alert and oriented Last oral intake: >/= 8 hours ASA classification: III Emergent: no Anesthetic plan: proceed Anesthesia type and monitoring: general LMA and standard monitoring Results Review: All pre-operative results and documents have been reviewed as part of the pre- operative evaluation. Informed Consent: The patient's anesthetic plan and its attendant risks and benefits were discussed with the patient/family/POA. Questions were solicited and answers provided to the satisfaction of the patient/family/POA.
--- NOTE | 2024-12-24 09:35 | WPDHPUPDATE1 ---
History and Physical Update Update Date/Time: 12/24/24 09:35 History and Physical has been reviewed, including an updated exam of the patient. There are NO changes in the patient's condition. Risks, benefits, and alternatives have been discussed and questions answered. Patient agrees to proceed with procedure.
[2024-12-24] MEDS: LIDO 1%/EPINEPHRINE 1:100,000 20 ML VIAL 30 ML INFILTRATE (10:06)
[2024-12-24] MEDS: BUPivacaine HCL 0.5% 10 ML AMP 30 ML INFILTRATE (10:07)
--- NOTE | 2024-12-24 10:16 | SUR.OPER ---
culture sent to lab per PCT Ashlee at [id number]
--- NOTE | 2024-12-24 10:52 | W.PM.PROC2 ---
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 She has developed redness and some drainage from the area the umbilicus. CT scan shows fluid in this area which is not organized into an abscess yet but appears to be likely a developing abscess with associated cellulitis. She presents now for incision and drainage of abdominal abscess. Findings The patient fluid collection just superior and to the right of umbilicus which was draining out through a small opening in the base of the umbilicus. There was pus draining and a culture swab was sent to microbiology. There did not appear to be any extension of the abscess below the fascial level. Description of Procedure After informed consent was obtained patient brought to the operating room she was placed supine position and general LMA anesthesia was administered. The abdomen was then prepped and draped usual sterile fashion. A time-out was then performed correctly identifying the patient as well as procedure to be performed. She was already on scheduled IV antibiotics. The patient had induration with a small central area of fluctuance noted just above into the right of the umbilicus. She also had a small open area at the base the umbilicus was draining pus. I made a transverse incision over the area of fluctuance in the area of induration just above and to the right of the umbilicus. Dissection carried down through the subcutaneous tissue electrocautery. I then entered a small abscess cavity. A clamp was then used to probe the tract and did exit out the opening of the base of the umbilicus. I then dilated this tract the clamp. I obtained a culture swab Gram stain and aerobic and anaerobic cultures of the abscess cavity. It was sent to the microbiology. I then irrigated out the abscess cavity with sterile saline solution. I dilated the opening at the base of the umbilicus with a clamp and then continued to irrigate until there was no more purulent fluid coming out the abscess cavity. Hemostasis in the subcutaneous tissues was achieved electrocautery. I then placed a quarter-inch Yasmani drain through the opening in the base of the umbilicus and through the counter incision on the periumbilical region. The Wilmot drain was then looped and then secured to itself with a 3-0 nylon suture. I then this cavity through the larger counter incision and extended the half-inch iodoform gauze to the umbilical opening. The abscess cavity was packed tightly with the iodoform gauze. I then injected 1% lidocaine mixed with 0.5% Marcaine with some epinephrine around the wound for local anesthetic effect. There is then cleaned and then 4x4 gauze and ABD pad and Medipore tape was used for final dressing The patient tolerated the procedure well no complications. All sponges, needles, and instrument counts were correct at the end procedure. EBL was _10__cc. The patient was awakened and taken to recovery in stable and satisfactory condition. Implants None Estimated Blood Loss 10 Drains Yes (Quarter-inch Yasmani drain) Packing Yes (Half-inch iodoform gauze) Pathology Other (Culture swab sent to microbiology for Gram stain, aerobic and anaerobic cultures) Complications No immediate complications Condition Stable Disposition PACU [facility] Billing Surgery - Charge Forward: Surgery Billing
[2024-12-24] MEDS: VANCOMYCIN 1,500 MG/NS 500 ML 1,500 MG/500 ML BAG 250 MG IVPB (14:02)
[2024-12-24] MEDS: ACETAMINOPHEN 500 MG TABLET 1000 MG PO (15:58)
--- NOTE | 2024-12-24 18:03 | WPDANESPN ---
Anes - Prog Note Post-Op Date/Time: 12/24/24 18:03 Cardiovascular status: normal Respiratory status: normal Airway patency: baseline Mental status: baseline Post-Op hydration status: normal Vital Signs: Last Vital Signs Temp 36.6 C 12/24/24 13:45 Pulse 70 12/24/24 13:45 Resp 18 12/24/24 13:45 BP 112/69 12/24/24 13:45 Pulse Ox 100 12/24/24 13:45 O2 Del Method Room Air 12/24/24 11:40 O2 Flow Rate 8 12/24/24 10:40 Pain Score (VAS): 12/28 I/O: Intake & Output 12/24/24 12/24/24 12/24/24 07:59 15:59 23:59 Intake Total 500 1090 2180 Balance 500 1090 2180 Laboratory Tests 12/23/24 22:49 12/24/24 05:14 12/23/24 12/24/24 12/24/24 22:49 02:07 05:14 WBC 14.3 H RBC 4.32 Hgb 12.3 Hct 36.7 L MCV 85.0 MCH 28.5 MCHC 33.5 RDW 13.1 Plt Count 338 MPV 9.4 PT 12.9 INR 0.9 Sodium 140 Potassium 3.5 Chloride 108 H Carbon Dioxide 23 Anion Gap 9 BUN 9 Creatinine 0.67 L 0.51 L Estim Creat Clear Calc Not Reportable Not Reportable Estimated GFR > 60 > 60 Glucose 102 Calcium 8.8 Total Bilirubin 0.3 AST 14 ALT 12 Alkaline Phosphatase 66 Total Protein 7.0 Albumin 3.3 L Nasal MRSA (PCR) Not detected Blood Type O Positive Antibody Screen Negative Post-procedural complaints: none Patient Feedback: Patient satisfied with anesthetic care.
[2024-12-24] MEDS: HYDROcodone/acetaminophen (*CRX) 5-325 MG TABLET 1 TAB PO (20:59)
[2024-12-24] MEDS: IBUPROFEN IV 800 MG/200 ML 800 MG/200 ML BAG 370.3 MG IVPB (23:12)
[2024-12-24] MEDS: diphenhydrAMINE HCl CAP 25 MG CAPSULE PO (23:37)
[2024-12-25] MEDS: VANCOMYCIN 1,500 MG/NS 500 ML 1,500 MG/500 ML BAG 250 MG IVPB (02:04)
[2024-12-25 04:39] VITALS: BP 124/64; PULSE 58; RESP 20; TEMP 36.5; O2SAT 98
[2024-12-25] MEDS: HYDROcodone/acetaminophen (*CRX) 5-325 MG TABLET 1 TAB PO (05:50)
[2024-12-25 06:22] LABS: Estimated Glomerular Filt Rate > 60
[2024-12-25 07:58] LABS: Basophils Percent Auto 0.3 % (0.2-1.2); Eosinophils Absolute Auto 0.5 K/mm3 (0-0.3); Eosinophils Percent Auto 4.2 % (0-4.4); Hematocrit 35.1 % (37.0-47.0); Hemoglobin 11.4 g/dL (12.0-15.0); Immature Granulocyte Absolute 0.11 K/mm3 (0.00-0.031); Lymphocytes Absolute Auto 2.14 K/mm3 (0.9-3.2); Lymphocytes Percent Auto 18.7 % (18.3-44.2); Mean Corpuscular HGB Conc 32.5 g/dl (32-36); Mean Corpuscular Hemoglobin 28.5 pg (26-34); Mean Corpuscular Volume 87.8 fl (80-100); Mean Platelet Volume 10.2 fl (7.4-10.4); Monocytes Absolute Auto 0.7 K/mm3 (0.1-0.6); Monocytes Percent Auto 5.9 % (2.6-8.5); Neutrophils Percent Auto 69.9 % (45.5-73.1); Platelet Count Result 310 k/mm3 (150-375); Red Cell Distribution Width 13.3 % (11.5-14.5); White Blood Count 11.5 K/mm3 (4.5-10.0)
[2024-12-25 08:00] VITALS: BP 118/67; PULSE 63; RESP 18; TEMP 36.2; O2SAT 100
--- NOTE | 2024-12-25 08:14 | WPDANESPN ---
Anes - Prog Note Post-Op Date/Time: 12/25/24 08:14 Cardiovascular status: normal Respiratory status: normal Airway patency: baseline Mental status: baseline Post-Op hydration status: normal Vital Signs: Last Vital Signs Temp 97.7 F 12/25/24 04:39 Pulse 58 L 12/25/24 04:39 Resp 20 12/25/24 04:39 BP 124/64 12/25/24 04:39 Pulse Ox 98 12/25/24 04:39 O2 Del Method Room Air 12/24/24 20:00 O2 Flow Rate 8 12/24/24 10:40 Pain Score (VAS): 0/10 I/O: Intake & Output 12/24/24 12/25/24 12/25/24 23:59 07:59 15:59 Intake Total 2670 240 Balance 2670 240 Laboratory Tests 12/25/24 05:47 12/25/24 05:47 12/25/24 12/25/24 12/25/24 05:47 05:47 05:47 WBC 11.5 H RBC 4.00 L Hgb 11.4 L Hct 35.1 L MCV 87.8 MCH 28.5 MCHC 32.5 RDW 13.3 Plt Count 310 MPV 10.2 Immature Gran % (Auto) 1.0 H Neut % (Auto) 69.9 Lymph % (Auto) 18.7 Lassen % (Auto) 5.9 Eos % (Auto) 4.2 Baso % (Auto) 0.3 Lymph # (Auto) 2.14 Lassen # (Auto) 0.7 H Eos # (Auto) 0.5 H Baso # (Auto) 0.0 Abs Immat Gran (auto) 0.11 H Absolute Neuts (auto) 8.0 H Absolute Nucleated RBC 0.000 Nucleated RBC % 0.0 Sodium Pending Potassium Pending Chloride Pending Carbon Dioxide Pending Anion Gap Pending BUN Pending Creatinine 0.53 L Pending Estim Creat Clear Calc Not Reportable Pending Estimated GFR > 60 Glucose Calcium 12/25/24 05:47 WBC RBC Hgb Hct MCV MCH MCHC RDW Plt Count MPV Immature Gran % (Auto) Neut % (Auto) Lymph % (Auto) Lassen % (Auto) Eos % (Auto) Baso % (Auto) Lymph # (Auto) Lassen # (Auto) Eos # (Auto) Baso # (Auto) Abs Immat Gran (auto) Absolute Neuts (auto) Absolute Nucleated RBC Nucleated RBC % Sodium Potassium Chloride Carbon Dioxide Anion Gap BUN Creatinine Estim Creat Clear Calc Estimated GFR Pending Glucose Pending Calcium Pending Post-procedural complaints: none Patient Feedback: Patient satisfied with anesthetic care.
[2024-12-25] MEDS: IBUPROFEN IV 800 MG/200 ML 800 MG/200 ML BAG 200 MG IVPB ×2 (08:15→15:38)
[2024-12-25] MEDS: SERTRALINE HCL 25 MG TABLET PO (08:16)
[2024-12-25] MEDS: oxyCODONE HCL (*CRX) 5 MG TAB IR PO ×3 (08:20→21:40)
[2024-12-25 08:50] LABS: Anion Gap 7 mmol/L (4-12); Blood Urea Nitrogen 7 mg/dL (7-17); Calcium 8.5 mg/dL (8.4-10.2); Carbon Dioxide 20 mmol/L (22-30); Chloride 109 mmol/L (98-107); Estimated Glomerular Filt Rate > 60; Glucose 88 mg/dL (65-110); Potassium 3.9 mmol/L (3.4-5.0); Sodium 136 mmol/L (137-145)
[2024-12-25 14:46] LABS: Vancomycin Trough 7.7 ug/mL (10.0-20.0)
[2024-12-25 14:57] VITALS: BP 130/65; PULSE 62; RESP 18; TEMP 36.7; O2SAT 100
[2024-12-25] MEDS: VANCOMYCIN 1,750 MG/NS 500 ML 1,750 MG/500 ML BAG 250 MG IVPB ×2 (16:47→23:52)
[2024-12-25] MEDS: LACTATED RINGERS 1,000 ML 120 ML IV CONT (17:53)
[2024-12-25 20:00] VITALS: O2SAT 100
[2024-12-25 20:08] VITALS: BP 118/52; PULSE 64; RESP 20; TEMP 36.6; O2SAT 100
--- NOTE | 2024-12-25 22:07 | WPDPN ---
Progress Note: A&P Assessment and Plan (1) Abscess of postoperative wound of abdominal wall: Code(s): T81.49XA - Infection following a procedure, other surgical site, initial encounter; L02.211 - Cutaneous abscess of abdominal wall Status: Acute Assessment and Plan: Postop day 1 after complex incision and drainage of periumbilical abdominal abscess. Cultures are pending. Continue IV vancomycin and IV Rocephin for now. Packing was removed from the wound today and not repacked. The Yasmani drain remains in place. Just cover the wound with dry gauze and Medipore tape. Continue to ambulate to the bathroom and up to chair today. Repeat white blood cell count tomorrow. Likely will stay in the hospital over the weekend on IV antibiotics. Subjective Date/time seen: 12/25/24 22:07 Interval history: Patient is doing better today. Postop day 1 after complex incision and drainage of periumbilical abdominal wall abscess. She still has pain in the area but is less than before drainage. No fever. She is tolerating solid food. White blood cell count is now down to 11,000. cultures are pending. She remains on vancomycin and Rocephin IV. She was able to get up and ambulate to the bathroom and sit up in chair. Exam GI: Other: Her abdomen is obese but soft . I removed the packing from the wound and there was no purulence to the drainage. Most of the drainage which is serous. There is less induration around the wound and there is no pus drainage. The Yasmani drain is still looped into the original umbilical incision and the counter incision. Objective Data Vital Signs Vital Signs: Vital Signs - 24 hr 12/25/24 04:39 12/25/24 08:00 12/25/24 14:57 Temperature 36.5 C 36.2 C L 36.7 C Pulse Rate 58 L 63 62 Respiratory Rate 20 18 18 Blood Pressure 124/64 118/67 130/65 Pulse Oximetry 98 100 100 12/25/24 20:08 Temperature 36.6 C Pulse Rate 64 Respiratory Rate 20 Blood Pressure 118/52 L Pulse Oximetry 100 Intake/Output Intake/Output: Intake & Output 12/22/24 12/23/24 12/24/24 12/25/24 23:59 23:59 23:59 23:59 Intake Total 750 4260 4040 Balance 750 4260 4040 Meds/Results Medications: Active Medications Generic Name Dose Route Start Last Admin Trade Name Freq PRN Reason Stop Dose Admin Acetaminophen 1,000 mg 12/24/24 10:43 12/24/24 15:58 Acetaminophen 500 Mg Tablet PO 1,000 mg Q6H PRN Administration Mild Pain (1-3) or Fever Hydrocodone Bitart/Acetaminophen 1 tab 12/24/24 10:43 12/25/24 05:50 Hydrocodone/Acetaminophen (*Crx) 5-325 Mg Tablet PO 1 tab Q4H PRN Administration Pain Rated 4-6 Hydromorphone HCl 0.5 mg 12/23/24 22:39 12/23/24 23:26 Hydromorphone Hcl Inj (*Crx) 1 Mg/Ml Syr IV PUSH 0.5 mg Q3H PRN Administration Pain Rated 4-6 Hydromorphone HCl 1 mg 12/23/24 22:39 Hydromorphone Hcl Inj (*Crx) 1 Mg/Ml Syr IV PUSH Q3H PRN Pain Rated 7-10 Ceftriaxone Sodium 1 gm in 50 mls @ 100 mls/hr 12/23/24 23:00 12/24/24 23:14 Rocephin 1 Gm/Ns 50 Ml IVPB Infused Q24H GEOVANY Infusion Ibuprofen 800 mg in 200 mls @ 370.37 mls/hr 12/24/24 00:00 12/25/24 16:38 Caldolor 800 Mg/200 Ml IVPB Infused Q8H GEOVANY Infusion Lactated Ringer's 1,000 mls @ 120 mls/hr 12/23/24 23:55 12/25/24 17:53 Lr - Lactated Ringers Iv IV CONT 120 mls/hr .Q8H20M GEOVANY Administration Vancomycin HCl 1,750 mg in 500 mls @ 250 mls/hr 12/25/24 16:00 12/25/24 18:47 Vancomycin 1,750 Mg/Ns 500 Ml IVPB Infused Q8H GEOVANY Infusion Lorazepam 1 mg 12/23/24 22:45 Lorazepam Inj (*Crx) 2 Mg/Ml Vial IV PUSH Q8H PRN Anxiety Oxycodone HCl 5 mg 12/24/24 10:43 12/25/24 21:40 Oxycodone Hcl (*Crx) 5 Mg Tab Ir PO 5 mg Q4H PRN Administration Pain Rated 7-10 Sertraline HCl 25 mg 12/25/24 09:00 12/25/24 08:16 Sertraline Hcl 25 Mg Tablet PO 25 mg DAILY GEOVANY Administration Radiology Results: ITS Impressions Abdomen/Pelvis CT 12/24/24 06:05 Impression: Wound at the umbilicus with possible 2.4 x 0.8 cm early abscess or phlegmon with surrounding infiltrative/inflammatory changes. Cholelithiasis. Labs Labs: Laboratory Results - last 24 hr 12/25/24 12/25/24 12/25/24 05:47 05:47 05:47 WBC 11.5 H RBC 4.00 L Hgb 11.4 L Hct 35.1 L MCV 87.8 MCH 28.5 MCHC 32.5 RDW 13.3 Plt Count 310 MPV 10.2 Immature Gran % (Auto) 1.0 H Neut % (Auto) 69.9 Lymph % (Auto) 18.7 [place] % (Auto) 5.9 Eos % (Auto) 4.2 Baso % (Auto) 0.3 Lymph # (Auto) 2.14 [place] # (Auto) 0.7 H Eos # (Auto) 0.5 H Baso # (Auto) 0.0 Abs Immat Gran (auto) 0.11 H Absolute Neuts (auto) 8.0 H Absolute Nucleated RBC 0.000 Nucleated RBC % 0.0 Sodium 136 L Potassium 3.9 Chloride 109 H Carbon Dioxide 20 L Anion Gap 7 BUN 7 Creatinine 0.53 L 0.53 L Estim Creat Clear Calc Not Reportable Not Reportable Estimated GFR > 60 Glucose Calcium Vancomycin Trough 12/25/24 12/25/24 05:47 14:17 WBC RBC Hgb Hct MCV MCH MCHC RDW Plt Count MPV Immature Gran % (Auto) Neut % (Auto) Lymph % (Auto) [place] % (Auto) Eos % (Auto) Baso % (Auto) Lymph # (Auto) [place] # (Auto) Eos # (Auto) Baso # (Auto) Abs Immat Gran (auto) Absolute Neuts (auto) Absolute Nucleated RBC Nucleated RBC % Sodium Potassium Chloride Carbon Dioxide Anion Gap BUN Creatinine Estim Creat Clear Calc Estimated GFR > 60 Glucose 88 Calcium 8.5 Vancomycin Trough 7.7 L
[2024-12-25] MEDS: IBUPROFEN IV 800 MG/200 ML 800 MG/200 ML BAG 370.3 MG IVPB (23:16)
[2024-12-26 02:59] VITALS: BP 107/60; PULSE 59; RESP 20; TEMP 36.5; O2SAT 99
[2024-12-26 05:36] LABS: Basophils Percent Auto 0.3 % (0.2-1.2); Eosinophils Absolute Auto 0.5 K/mm3 (0-0.3); Eosinophils Percent Auto 5.9 % (0-4.4); Hemoglobin 10.9 g/dL (12.0-15.0); Immature Granulocyte Absolute 0.09 K/mm3 (0.00-0.031); Lymphocytes Absolute Auto 2.05 K/mm3 (0.9-3.2); Lymphocytes Percent Auto 23.8 % (18.3-44.2); Mean Corpuscular HGB Conc 31.1 g/dl (32-36); Mean Corpuscular Hemoglobin 28.5 pg (26-34); Mean Corpuscular Volume 91.6 fl (80-100); Mean Platelet Volume 9.8 fl (7.4-10.4); Monocytes Absolute Auto 0.6 K/mm3 (0.1-0.6); Neutrophils Absolute Auto 5.4 K/mm3 (1.3-6.7); Platelet Count Result 269 k/mm3 (150-375); Red Blood Count 3.82 M/mm3 (4.2-5.4); Red Cell Distribution Width 13.4 % (11.5-14.5); White Blood Count 8.6 K/mm3 (4.5-10.0)
[2024-12-26 05:58] LABS: Estimated Glomerular Filt Rate > 60
[2024-12-26] MEDS: oxyCODONE HCL (*CRX) 5 MG TAB IR PO ×3 (06:50→20:48)
[2024-12-26] MEDS: LACTATED RINGERS 1,000 ML 120 ML IV CONT (06:51)
[2024-12-26 08:00] VITALS: BP 119/57; PULSE 72; RESP 16; TEMP 36.4; O2SAT 100
[2024-12-26] MEDS: IBUPROFEN IV 800 MG/200 ML 800 MG/200 ML BAG 370 MG IVPB (08:27)
[2024-12-26] MEDS: SERTRALINE HCL 25 MG TABLET PO (08:28)
[2024-12-26] MEDS: VANCOMYCIN 1,750 MG/NS 500 ML 1,750 MG/500 ML BAG 250 MG IVPB ×2 (09:17→20:56)
--- NOTE | 2024-12-26 13:11 | P.PN_ITS ---
Progress Note: A&P Assessment and Plan (1) Abscess of postoperative wound of abdominal wall: Code(s): T81.49XA - Infection following a procedure, other surgical site, initial encounter; L02.211 - Cutaneous abscess of abdominal wall Status: Acute Assessment and Plan: Periumbilical abdominal wall abscess is drained. [place] drain remains in place. No longer packing the wound. Induration is slowly improving. White blood count is normalized. Cultures so far show no evidence of MRSA or other pathologic organisms. Growth is only skin sharon right now. Continue IV antibiotics to include vancomycin and Rocephin for right now. We will recheck white blood cell count tomorrow. Continue to dress the wound with 4x4 gauze and ABD pad and tape. No need for packing at this time. The patient did have some irritation of the perineal region after using some wet wipes in that area. We will go ahead letter shower and then can apply some zinc oxide cream to the area if he continues to be irritated. Subjective Date/time seen: 12/26/24 13:11 Interval history: Patient is doing a little better today. Still complaining of pain around the wound from the incision and drainage of the periumbilical abdominal abscess. White blood count has normalized now. She remains on IV Rocephin and IV vancomycin. Cultures show skin sharon without obvious pathologic organism at this time. She is tolerating regular diet. Exam GI: Other: Abdomen is soft but obese. Nondistended. Decreasing induration around the periumbilical region. Drainage from the wound is getting to be more serous. Exploration of the wound with a Q-tip reveals no pus pockets. Yasmani drain is still in place. Objective Data Vital Signs Vital Signs: Vital Signs - 24 hr 12/25/24 14:57 12/25/24 20:00 12/25/24 20:08 Temperature 36.7 C 36.6 C Pulse Rate 62 64 Respiratory Rate 18 20 Blood Pressure 130/65 118/52 L Pulse Oximetry 100 100 100 Oxygen Delivery Room Air 12/26/24 02:59 12/26/24 08:00 Temperature 36.5 C 36.4 C L Pulse Rate 59 L 72 Respiratory Rate 20 16 Blood Pressure 107/60 119/57 L Pulse Oximetry 99 100 Oxygen Delivery Intake/Output Intake/Output: Intake & Output 12/23/24 12/24/24 12/25/2408/25 23:59 23:59 23:59 23:59 Intake Total 750 4260 4290 2730 Balance 750 4260 4290 2730 Meds/Results Medications: Active Medications Generic Name Dose Route Start Last Admin Trade Name Freq PRN Reason Stop Dose Admin Acetaminophen 1,000 mg 12/24/24 10:43 12/24/24 15:58 Acetaminophen 500 Mg Tablet PO 1,000 mg Q6H PRN Administration Mild Pain (1-3) or Fever Hydrocodone Bitart/Acetaminophen 1 tab 12/24/24 10:43 12/25/24 05:50 Hydrocodone/Acetaminophen (*Crx) 5-325 Mg Tablet PO 1 tab Q4H PRN Administration Pain Rated 4-6 Hydromorphone HCl 0.5 mg 12/23/24 22:39 12/23/24 23:26 Hydromorphone Hcl Inj (*Crx) 1 Mg/Ml Syr IV PUSH 0.5 mg Q3H PRN Administration Pain Rated 4-6 Hydromorphone HCl 1 mg 12/23/24 22:39 Hydromorphone Hcl Inj (*Crx) 1 Mg/Ml Syr IV PUSH Q3H PRN Pain Rated 7-10 Ceftriaxone Sodium 1 gm in 50 mls @ 100 mls/hr 12/23/24 23:00 12/25/24 23:09 Rocephin 1 Gm/Ns 50 Ml IVPB Infused Q24H GEOVANY Infusion Ibuprofen 800 mg in 200 mls @ 370.37 mls/hr 12/24/24 00:00 12/26/24 09:00 Caldolor 800 Mg/200 Ml IVPB Infused Q8H GEOVANY Infusion Lactated Ringer's 1,000 mls @ 120 mls/hr 12/23/24 23:55 12/26/24 06:51 Lr - Lactated Ringers Iv IV CONT 120 mls/hr .Q8H20M GEOVANY Administration Vancomycin HCl 1,750 mg in 500 mls @ 250 mls/hr 12/25/24 16:00 12/26/24 11:17 Vancomycin 1,750 Mg/Ns 500 Ml IVPB Infused Q8H GEOVANY Infusion Lorazepam 1 mg 12/23/24 22:45 Lorazepam Inj (*Crx) 2 Mg/Ml Vial IV PUSH Q8H PRN Anxiety Oxycodone HCl 5 mg 12/24/24 10:43 12/26/24 06:50 Oxycodone Hcl (*Crx) 5 Mg Tab Ir PO 5 mg Q4H PRN Administration Pain Rated 7-10 Sertraline HCl 25 mg 12/25/24 09:00 12/26/24 08:28 Sertraline Hcl 25 Mg Tablet PO 25 mg DAILY GEOVANY Administration Radiology Results: ITS Impressions Abdomen/Pelvis CT 12/24/24 06:05 Impression: Wound at the umbilicus with possible 2.4 x 0.8 cm early abscess or phlegmon with surrounding infiltrative/inflammatory changes. Cholelithiasis. Labs Labs: Laboratory Results - last 24 hr 12/25/24 12/26/24 14:17 05:10 WBC 8.6 RBC 3.82 L Hgb 10.9 L Hct 35.0 L MCV 91.6 MCH 28.5 MCHC 31.1 L RDW 13.4 Plt Count 269 MPV 9.8 Immature Gran % (Auto) 1.0 H Neut % (Auto) 62.0 Lymph % (Auto) 23.8 [place] % (Auto) 7.0 Eos % (Auto) 5.9 H Baso % (Auto) 0.3 Lymph # (Auto) 2.05 [place] # (Auto) 0.6 Eos # (Auto) 0.5 H Baso # (Auto) 0.0 Abs Immat Gran (auto) 0.09 H Absolute Neuts (auto) 5.4 Absolute Nucleated RBC 0.000 Nucleated RBC % 0.0 Creatinine 0.47 L Estim Creat Clear Calc Not Reportable Estimated GFR > 60 Vancomycin Trough 7.7 L
[2024-12-26 14:00] VITALS: BP 125/47; PULSE 73; RESP 14; TEMP 36.6; O2SAT 98
[2024-12-26] MEDS: IBUPROFEN IV 800 MG/200 ML 800 MG/200 ML BAG 200 MG IVPB (15:04)
[2024-12-26 15:31] LABS: Vancomycin Trough 22.9 ug/mL (10.0-20.0)
[2024-12-26 20:00] VITALS: O2SAT 98
[2024-12-26] MEDS: WATER FOR IRRIGATION, STERILE 1,000 ML BOTTLE 1000 ML (21:00)
[2024-12-26 22:00] VITALS: BP 131/71; PULSE 57; RESP 20; TEMP 36.9; O2SAT 100
[2024-12-27] MEDS: IBUPROFEN IV 800 MG/200 ML 800 MG/200 ML BAG 370.3 MG IVPB ×2 (00:18→08:20)
[2024-12-27] MEDS: LACTATED RINGERS 1,000 ML 120 ML IV CONT ×2 (01:46→10:35)
[2024-12-27] MEDS: diphenhydrAMINE HCl INJ 50 MG/ML VIAL 25 MG IV PUSH (03:34)
[2024-12-27] MEDS: BETAMETHASONE/CLOTRIMAZOLE CREAM 45 GM TUBE 1 APPLIC TOPICAL ×3 (03:47→20:26)
[2024-12-27] MEDS: LORazepam INJ (*CRX) 2 MG/ML VIAL 1 MG IV PUSH (03:48)
[2024-12-27 05:35] LABS: Basophils Percent Auto 0.3 % (0.2-1.2); Eosinophils Absolute Auto 0.6 K/mm3 (0-0.3); Eosinophils Percent Auto 6.2 % (0-4.4); Hematocrit 33.4 % (37.0-47.0); Immature Granulocyte Absolute 0.11 K/mm3 (0.00-0.031); Immature Granulocyte Percent A 1.1 % (0-0.5); Lymphocytes Absolute Auto 1.77 K/mm3 (0.9-3.2); Lymphocytes Percent Auto 18.1 % (18.3-44.2); Mean Corpuscular HGB Conc 32.9 g/dl (32-36); Mean Corpuscular Hemoglobin 28.6 pg (26-34); Mean Corpuscular Volume 86.8 fl (80-100); Mean Platelet Volume 9.8 fl (7.4-10.4); Monocytes Absolute Auto 0.6 K/mm3 (0.1-0.6); Monocytes Percent Auto 6.6 % (2.6-8.5); Neutrophils Absolute Auto 6.6 K/mm3 (1.3-6.7); Neutrophils Percent Auto 67.7 % (45.5-73.1); Platelet Count Result 272 k/mm3 (150-375); Red Blood Count 3.85 M/mm3 (4.2-5.4); Red Cell Distribution Width 13.4 % (11.5-14.5); White Blood Count 9.8 K/mm3 (4.5-10.0)
[2024-12-27 06:00] VITALS: BP 152/70; PULSE 71; RESP 20; TEMP 36.9; O2SAT 100
[2024-12-27] MEDS: SERTRALINE HCL 25 MG TABLET PO (08:20)
[2024-12-27] MEDS: VANCOMYCIN 1,750 MG/NS 500 ML 1,750 MG/500 ML BAG 250 MG IVPB (10:34)
--- NOTE | 2024-12-27 11:05 | P.PN_ITS ---
Progress Note: A&P Assessment and Plan (1) Abscess of postoperative wound of abdominal wall: Code(s): T81.49XA - Infection following a procedure, other surgical site, initial encounter; L02.211 - Cutaneous abscess of abdominal wall Status: Acute Assessment and Plan: Will transition to oral antibiotics today. Stop the Rocephin and IV vancomycin. Start Bactrim DS BID as she is allergic to PCN. Cultures did not show any evidence of MRSA. Repeat white blood count tomorrow. If still normal and patient continues to improve then hopefully home tomorrow on oral antibiotics. Subjective Date/time seen: 12/27/24 11:05 Interval history: Patient is clinically stable. He continues to complain of having some pain around the drained abscess on the abdominal wall. No fever. White blood count 9800 which is normal. She continues on IV Rocephin and IV vancomycin at this time. Exam GI: Other: Yasmani drain in place. Wound is draining. Still has some induration but seems to be decreasing. She used to experience some tenderness to palpation but no more than was expected. Objective Data Vital Signs Vital Signs: Vital Signs - 24 hr 12/26/24 14:00 12/26/24 20:00 12/26/24 22:00 Temperature 36.6 C 36.9 C Pulse Rate 73 57 L Respiratory Rate 14 20 Blood Pressure 125/47 L 131/71 Pulse Oximetry 98 98 100 Oxygen Delivery Room Air 12/27/24 00:12 12/27/24 06:00 12/27/24 08:00 Temperature 36.9 C Pulse Rate 71 Respiratory Rate 20 Blood Pressure 152/70 H Pulse Oximetry 100 Oxygen Delivery Room Air Room Air Intake/Output Intake/Output: Intake & Output 12/24/24 12/25/24 12/26/24 12/27/24 23:59 23:59 23:59 23:59 Intake Total 4260 4290 5410 1540 Balance 4260 4290 5410 1540 Meds/Results Medications: Active Medications Generic Name Dose Route Start Last Admin Trade Name Freq PRN Reason Stop Dose Admin Acetaminophen 1,000 mg 12/24/24 10:43 12/24/24 15:58 Acetaminophen 500 Mg Tablet PO 1,000 mg Q6H PRN Administration Mild Pain (1-3) or Fever Hydrocodone Bitart/Acetaminophen 1 tab 12/24/24 10:43 12/25/24 05:50 Hydrocodone/Acetaminophen (*Crx) 5-325 Mg Tablet PO 1 tab Q4H PRN Administration Pain Rated 4-6 Clotrimazole 1 applic 12/27/24 03:30 12/27/24 08:20 Betamethasone/Clotrimazole Cream 45 Gm Tube TOPICAL 1 applic Q12HR GEOVANY Administration Diphenhydramine HCl 25 mg 12/27/24 03:23 12/27/24 03:34 Diphenhydramine Hcl Inj 50 Mg/Ml Vial IV PUSH 25 mg Q4H PRN Administration Itching Hydromorphone HCl 0.5 mg 12/23/24 22:39 12/23/24 23:26 Hydromorphone Hcl Inj (*Crx) 1 Mg/Ml Syr IV PUSH 0.5 mg Q3H PRN Administration Pain Rated 4-6 Hydromorphone HCl 1 mg 12/23/24 22:39 Hydromorphone Hcl Inj (*Crx) 1 Mg/Ml Syr IV PUSH Q3H PRN Pain Rated 7-10 Ceftriaxone Sodium 1 gm in 50 mls @ 100 mls/hr 12/23/24 23:00 12/26/24 23:47 Rocephin 1 Gm/Ns 50 Ml IVPB Infused Q24H GEOVANY Infusion Ibuprofen 800 mg in 200 mls @ 370.37 mls/hr 12/24/24 00:00 12/27/24 08:20 Caldolor 800 Mg/200 Ml IVPB 370.3 mls/hr Q8H GEOVANY Administration Lactated Ringer's 1,000 mls @ 120 mls/hr 12/23/24 23:55 12/27/24 10:35 Lr - Lactated Ringers Iv IV CONT 120 mls/hr .Q8H20M GEOVANY Administration Vancomycin HCl 1,750 mg in 500 mls @ 250 mls/hr 12/26/24 21:00 12/27/24 10:34 Vancomycin 1,750 Mg/Ns 500 Ml IVPB 250 mls/hr Q12H GEOVANY Administration Lorazepam 1 mg 12/23/24 22:45 12/27/24 03:48 Lorazepam Inj (*Crx) 2 Mg/Ml Vial IV PUSH 1 mg Q8H PRN Administration Anxiety Oxycodone HCl 5 mg 12/24/24 10:43 12/26/24 20:48 Oxycodone Hcl (*Crx) 5 Mg Tab Ir PO 5 mg Q4H PRN Administration Pain Rated 7-10 Sertraline HCl 25 mg 12/25/24 09:00 12/27/24 08:20 Sertraline Hcl 25 Mg Tablet PO 25 mg DAILY GEOVANY Administration Zinc Oxide 1 applic 12/27/24 09:00 12/27/24 08:21 Zinc Oxide 20% Oint 30 Gm Tube TOPICAL Not [facility] Results: ITS Impressions Abdomen/Pelvis CT 12/24/24 06:05 Impression: Wound at the umbilicus with possible 2.4 x 0.8 cm early abscess or phlegmon with surrounding infiltrative/inflammatory changes. Cholelithiasis. Labs Labs: Laboratory Results - last 24 hr 12/26/24 12/27/24 15:03 05:11 WBC 9.8 RBC 3.85 L Hgb 11.0 L Hct 33.4 L MCV 86.8 D MCH 28.6 MCHC 32.9 RDW 13.4 Plt Count 272 MPV 9.8 Immature Gran % (Auto) 1.1 H Neut % (Auto) 67.7 Lymph % (Auto) 18.1 L [place] % (Auto) 6.6 Eos % (Auto) 6.2 H Baso % (Auto) 0.3 Lymph # (Auto) 1.77 [place] # (Auto) 0.6 Eos # (Auto) 0.6 H Baso # (Auto) 0.0 Abs Immat Gran (auto) 0.11 H Absolute Neuts (auto) 6.6 Absolute Nucleated RBC 0.000 Nucleated RBC % 0.0 Vancomycin Trough 22.9 H
[2024-12-27 14:00] VITALS: BP 133/79; PULSE 63; RESP 18; TEMP 36.5; O2SAT 100
[2024-12-27] MEDS: oxyCODONE HCL (*CRX) 5 MG TAB IR PO ×2 (14:06→19:27)
--- NOTE | 2024-12-27 17:44 | PC.NURSE ---
per joe daly to not have IV
[2024-12-27] MEDS: SULFAMETHOXAZOLE/TRIMETHOPRIM 800/160 MG DS TABLET 1 TAB PO (20:26)
[2024-12-27] MEDS: HYDROcodone/acetaminophen (*CRX) 5-325 MG TABLET 1 TAB PO (21:57)
[2024-12-27 22:00] VITALS: BP 127/72; PULSE 69; RESP 20; TEMP 36.3; O2SAT 99
[2024-12-28 05:55] LABS: Basophils Percent Auto 0.3 % (0.2-1.2); Eosinophils Absolute Auto 0.6 K/mm3 (0-0.3); Eosinophils Percent Auto 4.4 % (0-4.4); Hematocrit 34.6 % (37.0-47.0); Hemoglobin 11.6 g/dL (12.0-15.0); Immature Granulocyte Absolute 0.12 K/mm3 (0.00-0.031); Immature Granulocyte Percent A 0.9 % (0-0.5); Lymphocytes Absolute Auto 1.75 K/mm3 (0.9-3.2); Lymphocytes Percent Auto 13.1 % (18.3-44.2); Mean Corpuscular HGB Conc 33.5 g/dl (32-36); Mean Corpuscular Hemoglobin 28.5 pg (26-34); Mean Platelet Volume 9.3 fl (7.4-10.4); Monocytes Absolute Auto 0.8 K/mm3 (0.1-0.6); Monocytes Percent Auto 6.1 % (2.6-8.5); Neutrophils Percent Auto 75.2 % (45.5-73.1); Platelet Count Result 299 k/mm3 (150-375); Red Blood Count 4.07 M/mm3 (4.2-5.4); Red Cell Distribution Width 13.2 % (11.5-14.5); White Blood Count 13.3 K/mm3 (4.5-10.0)
[2024-12-28 06:00] VITALS: BP 120/61; PULSE 59; RESP 20; TEMP 36.7; O2SAT 100
[2024-12-28] MEDS: SERTRALINE HCL 25 MG TABLET PO (09:55)
[2024-12-28] MEDS: BETAMETHASONE/CLOTRIMAZOLE CREAM 45 GM TUBE 1 APPLIC TOPICAL ×2 (09:55→21:09)
[2024-12-28] MEDS: HYDROcodone/acetaminophen (*CRX) 5-325 MG TABLET 1 TAB PO ×2 (09:55→14:01)
[2024-12-28] MEDS: SULFAMETHOXAZOLE/TRIMETHOPRIM 800/160 MG DS TABLET 1 TAB PO ×2 (09:55→21:09)
[2024-12-28 13:50] VITALS: BP 110/41; PULSE 64; RESP 16; TEMP 36.5; O2SAT 99
[2024-12-28 15:33] LABS: Bacterial Vaginosis NEGATIVE (NEGATIVE)
--- NOTE | 2024-12-28 15:54 | WPDPN ---
Progress Note: A&P Assessment and Plan (1) Abscess of postoperative wound of abdominal wall: Code(s): T81.49XA - Infection following a procedure, other surgical site, initial encounter; L02.211 - Cutaneous abscess of abdominal wall Status: Acute Assessment and Plan: Does not appear the patient has completely resolved her abdominal abscess with the limited incision and drainage performed procedure that was performed earlier in the week. Discussed with her need for further drainage and abdominal exploration. She is agreeable. We will plan on going to the operating room tomorrow for abdominal exploration and further drainage of the abscess and likely placement of wound VAC. Subjective Date/time seen: 12/28/24 15:54 Interval history: Patient still has significant pain at the abscess site on the abdominal wall. White blood cell count went up to 13,000 off of IV antibiotics but still on oral antibiotics. For. Exam GI: Other: Abdominal wall wound has a little bit more purulence to the drainage today. Still significant induration and pain. Objective Data Vital Signs Vital Signs: Vital Signs - 24 hr 12/27/24 20:00 12/27/24 22:00 12/28/24 02:00 Temperature 36.3 C L Pulse Rate 69 Respiratory Rate 20 Blood Pressure 127/72 Pulse Oximetry 99 Oxygen Delivery Room Air Room Air 12/28/24 06:00 12/28/24 08:00 12/28/24 13:50 Temperature 36.7 C 36.5 C Pulse Rate 59 L 64 Respiratory Rate 20 16 Blood Pressure 120/61 110/41 L Pulse Oximetry 100 99 Oxygen Delivery Room Air Intake/Output Intake/Output: Intake & Output 12/25/24 12/26/24 12/27/24 12/28/24 23:59 23:59 23:59 23:59 Intake Total 4290 5410 2496 1055 Balance 4290 5410 2496 1055 Meds/Results Medications: Active Medications Generic Name Dose Route Start Last Admin Trade Name Freq PRN Reason Stop Dose Admin Acetaminophen 1,000 mg 12/24/24 10:43 12/24/24 15:58 Acetaminophen 500 Mg Tablet PO 1,000 mg Q6H PRN Administration Mild Pain (1-3) or Fever Hydrocodone Bitart/Acetaminophen 1 tab 12/24/24 10:43 12/28/24 14:01 Hydrocodone/Acetaminophen (*Crx) 5-325 Mg Tablet PO 1 tab Q4H PRN Administration Pain Rated 4-6 Clotrimazole 1 applic 12/27/24 03:30 12/28/24 09:55 Betamethasone/Clotrimazole Cream 45 Gm Tube TOPICAL 1 applic Q12HR GEOVANY Administration Diphenhydramine HCl 25 mg 12/27/24 03:23 12/27/24 03:34 Diphenhydramine Hcl Inj 50 Mg/Ml Vial IV PUSH 25 mg Q4H PRN Administration Itching Hydromorphone HCl 0.5 mg 12/23/24 22:39 12/23/24 23:26 Hydromorphone Hcl Inj (*Crx) 1 Mg/Ml Syr IV PUSH 0.5 mg Q3H PRN Administration Pain Rated 4-6 Hydromorphone HCl 1 mg 12/23/24 22:39 Hydromorphone Hcl Inj (*Crx) 1 Mg/Ml Syr IV PUSH Q3H PRN Pain Rated 7-10 Lorazepam 1 mg 12/23/24 22:45 12/27/24 03:48 Lorazepam Inj (*Crx) 2 Mg/Ml Vial IV PUSH 1 mg Q8H PRN Administration Anxiety Oxycodone HCl 5 mg 12/24/24 10:43 12/27/24 19:27 Oxycodone Hcl (*Crx) 5 Mg Tab Ir PO 5 mg Q4H PRN Administration Pain Rated 7-10 Sertraline HCl 25 mg 12/25/24 09:00 12/28/24 09:55 Sertraline Hcl 25 Mg Tablet PO 25 mg DAILY GEOVANY Administration Trimethoprim/Sulfamethoxazole 1 tab 12/27/24 21:00 12/28/24 09:55 Sulfamethoxazole/Trimethoprim 800/160 Mg Ds Tablet PO 1 tab Q12HR GEOVANY Administration Zinc Oxide 1 applic 12/27/24 09:00 12/28/24 09:55 Zinc Oxide 20% Oint 30 Gm Tube TOPICAL Not Given [facility] Radiology Results: ITS Impressions Abdomen/Pelvis CT 12/24/24 06:05 Impression: Wound at the umbilicus with possible 2.4 x 0.8 cm early abscess or phlegmon with surrounding infiltrative/inflammatory changes. Cholelithiasis. Labs Labs: Laboratory Results - last 24 hr 12/27/24 12/28/24 06:42 05:47 WBC 13.3 H RBC 4.07 L Hgb 11.6 L Hct 34.6 L MCV 85.0 MCH 28.5 MCHC 33.5 RDW 13.2 Plt Count 299 MPV 9.3 Immature Gran % (Auto) 0.9 H Neut % (Auto) 75.2 H Lymph % (Auto) 13.1 L [place] % (Auto) 6.1 Eos % (Auto) 4.4 Baso % (Auto) 0.3 Lymph # (Auto) 1.75 [place] # (Auto) 0.8 H Eos # (Auto) 0.6 H Baso # (Auto) 0.0 Abs Immat Gran (auto) 0.12 H Absolute Neuts (auto) 10.0 H Absolute Nucleated RBC 0.000 Nucleated RBC % 0.0 Bact Vaginosis Panel Negative
[2024-12-28] MEDS: oxyCODONE HCL (*CRX) 5 MG TAB IR PO (17:56)
[2024-12-28 19:51] VITALS: BP 134/67; PULSE 80; RESP 16; TEMP 36.4; O2SAT 100
[2024-12-29] VITALS (10 sets, daily range): BP systolic 97–124; BP diastolic 51–68; PULSE 55–100; RESP 12–24; TEMP 36.4–36.9; O2SAT 93–100
[2024-12-29] MEDS: HYDROcodone/acetaminophen (*CRX) 5-325 MG TABLET 1 TAB PO (08:38)
[2024-12-29] MEDS: SERTRALINE HCL 25 MG TABLET PO (08:39)
[2024-12-29] MEDS: SULFAMETHOXAZOLE/TRIMETHOPRIM 800/160 MG DS TABLET 1 TAB PO ×2 (08:39→20:10)
[2024-12-29] MEDS: LORazepam INJ (*CRX) 2 MG/ML VIAL 1 MG IV PUSH (11:38)
--- NOTE | 2024-12-29 11:48 | PC.NURSE ---
Report called to Samantha LOTT preop.
--- NOTE | 2024-12-29 12:30 | PC.NURSE ---
To OR via bed. Family at bedside.
--- NOTE | 2024-12-29 12:43 | WPDHPUPDATE1 ---
History and Physical Update Update Date/Time: 12/29/24 12:43 History and Physical has been reviewed, including an updated exam of the patient. There are NO changes in the patient's condition. Risks, benefits, and alternatives have been discussed and questions answered. Patient agrees to proceed with procedure.
--- NOTE | 2024-12-29 13:30 | P.PNAN_ITS ---
Anes - Initial Pre Proc Eval Procedure: Operation Date: 12/24/24 10:00 Proposed Procedures p Incision and Drainage Abdominal Abscess - Rolando Vallecillo MD Operation Date: 12/29/24 14:00 Proposed Procedures p Abdominal Wall Exploration, Drainage Of Abscess, Placement Of Wound Vac - Rolando Vallecillo MD Date/Time: 12/29/24 13:30 Surgeon: Rolando Vallecillo MD Pre Op Diagnosis: Abdominal wound abscess Patient Data Age: 44 Gender: F Height: 1.47 m Weight: 93.7 kg Last Vital Signs Temp 36.4 C L 12/29/24 03:45 Pulse 60 12/29/24 03:45 Resp 20 12/29/24 08:39 BP 109/68 12/29/24 03:45 Pulse Ox 98 12/29/24 08:39 O2 Del Method Room Air 12/29/24 08:39 O2 Flow Rate 8 12/24/24 10:40 Allergies Allergy/AdvReac Type Severity Reaction Status Date / Time penicillin G Allergy Unknown Verified 12/24/24 10:57 Home Medications ?Medication ?Instructions ?Recorded ?Confirmed ?Type sertraline 25 mg tablet 25 mg PO DAILY 06/03/24 12/23/24 History ibuprofen 800 mg tablet (IBU) 800 mg PO TID PRN pain 12/23/24 12/23/24 History Laboratory Tests 12/27/24 06:42 Bact Vaginosis Panel Negative (NEGATIVE) Patient hx anesthesia problems: none Family hx anesthesia problems: none Results Review: All pre-operative results and documents have been reviewed as part of the pre- operative evaluation. [facility] Past Medical History Medical History Morbid obesity Smoker Surgical History Surgical History History of incisional hernia repair 10/30/24 Robotic assisted laparoscopic incarcerated incisional hernia repair x3 with preperitoneal placement of Bard soft mesh, primary repair of incarcerated port site incisional hernia x1. Dr. Vallecillo Hx of hysterectomy History of section Family History Family History Father Chronic obstructive pulmonary disease Pacemaker Other Diabetes mellitus Social History Social History Smoking packs per day: 1 Smoking cigarettes per day: 20.0 Years smoked: 23 Smoking pack-years: 23.00 Smoking status: Current every day smoker Tobacco type: cigarettes Additional smoking assessment comments: Down to 1/2 a pack a day. Alcohol intake: never Alcohol use details: very rarely. On holidays or very seldomly Substance use: current Substance use type: marijuana Other substance usage details: twice a day Do You Feel Safe in your Home?: Yes Lack of Transportation: No Lack of Food: Never True Current Housing: I Have Housing Concerned About Future Housing: No Difficulty Paying Gas/Electric Bills: No Difficulty Paying for Meds: YES Currently Unemployed: YES Education: Grade School Difficulty w/ Childcare or Family Care: No Living arrangements: with family Additional living arrangements comments: & SON Spiritual care concerns: No Anes - Eval Final PreProcedure Day of Procedure 12/29/24 13:30 Patient weight: morbidly obese Heart: regular rate and rhythm Lungs: normal air movement Airway: Mallampati scale class II Neurological: alert and oriented Last oral intake: >/= 8 hours ASA classification: III Emergent: no Anesthetic plan: proceed Anesthesia type and monitoring: general LMA Results Review: All pre-operative results and documents have been reviewed as part of the pre- operative evaluation. Informed Consent: The patient's anesthetic plan and its attendant risks and benefits were discussed with the patient/family/POA. Questions were solicited and answers provided to the satisfaction of the patient/family/POA.
[2024-12-29] MEDS: ceFAZolin SODIUM 1 GM VIAL 3 GM IV PUSH (14:04)
[2024-12-29] MEDS: LACTATED RINGERS 1,000 ML 30 ML IV CONT (14:34)
--- NOTE | 2024-12-29 14:40 | P.OP_ITS ---
Procedure Note - Detailed Date of Procedure 12/29/24 Pre-op Diagnosis Abdominal wound abscess and cellulitiis Post-op Diagnosis Same Procedure Performed Abdominal wall wound exploration and placement of wound VAC Surgeon Rolando Vallecillo MD Methods Analyst Data Processing YASMIN Almonte Anesthesia General Indications Patient is a 44-year-old female who and abdominal wall abscess was incised and drained a few days ago. Initially her white blood count decreased but then it started to rise again increased to 13,000. She has continued to have some drainage from her wound and continued to have induration after initial incision and drainage of the abscess. She presents now for abdominal wall wound explor ation and placement of wound VAC. Findings No foreign body was found in the wound. No exposed mesh was seen or palpated. There was some diffuse drainage from the subcutaneous tissues of somewhat looking fluid but no well-defined walled abscess. Moderate indurated tissue was noted in the subcutaneous layer. No new hernia was found. The resulting wound measured [id number]. (56 sq cm) Description of Procedure After informed consent was obtained patient brought to the operating room she was placed supine position and general LMA anesthesia was administered. The abdomen was then prepped and draped usual sterile fashion. Time-out was then performed correctly identifying the patient as well as procedure to be performed. She was given some Ancef for perioperative IV antibiotics. I then removed the Yasmani drain which was looped into the incision and the counter incision. This was discarded. I then extended the initial abscess cavity drainage incision laterally for about 4 more cm. I then digitally explored the wound and the base. There was extension of the abscess cavity towards the umbilicus which was already known. There was a little bit more extension of the cavity cephalad along the anterior rectus fascia but no evidence of burrowing of the abscess into the muscle underneath the fascia. There was no exposed preperitoneal mesh. The surrounding tissue the abscess cavity still was moderately indurated. Some of the fluid expressed from the subcutaneous tissues had a purulent look to it but there were no well contained pockets of pus. No foreign body was found at the base of the wound. After I felt that I had adequately explored the abdominal wall and that there were no un open the pockets of infection I then irrigated out the incision with about 1L of sterile saline solution. Hemostasis was then achieved utilized electrocautery. The resulting defect in the soft tissues measured approximately 8cm in length by 7cm width by 5cm in depth. I then placed a piece of black foam sponge into the wound for wound VAC. The black sponge was then covered with a clear adhesive dressing and then a hole was cut on top of the sponge for the suction pad. Suction pad was then applied and additional adhesive dressings were placed to make sure there was no air leak. We then engaged the wound VAC and there was no significant air leak from the dressing. There was then cleaned. The patient tolerated the procedure well no complications. All sponges, needles, and instrument counts were correct at the end procedure. EBL was _10__cc. The patient was awakened and taken to recovery in stable and satisfactory condition. Implants Black foam wound VAC to abdominal wall wound Estimated Blood Loss 10 Drains No Packing Yes (Wound VAC applied to right abdominal wall wound) Pathology None sent Complications No immediate complications Condition Stable Disposition PACU [facility] Billing Surgery - Charge Forward: Surgery Billing
[2024-12-29] MEDS: ONDANSETRON INJ 4 MG/2 ML VIAL IV PUSH (14:44)
[2024-12-29] MEDS: fentaNYL CITRATE INJ (*CRX) 100 MCG/2 ML VIAL 25 MCG IV PUSH ×8 (14:45→14:59)
[2024-12-29] MEDS: HYDROmorphone HCL INJ (*CRX) 1 MG/ML SYR 0.5 MG IV PUSH ×2 (15:15→15:20)
--- NOTE | 2024-12-29 15:50 | PC.NURSE ---
Returned from OR via bed. Family at bedside. Voiding without difficulty.
[2024-12-29] MEDS: levoFLOXacin 750 MG/D5W 150 ML 750 MG/150 ML BAG 100 MG IVPB (16:09)
[2024-12-29] MEDS: BETAMETHASONE/CLOTRIMAZOLE CREAM 45 GM TUBE 1 APPLIC TOPICAL (20:07)
[2024-12-29] MEDS: HYDROmorphone HCL INJ (*CRX) 1 MG/ML SYR IV PUSH (20:09)
[2024-12-30] MEDS: oxyCODONE HCL (*CRX) 5 MG TAB IR PO ×3 (00:43→22:02)
[2024-12-30] MEDS: ONDANSETRON INJ 4 MG/2 ML VIAL IV PUSH ×2 (04:34→11:00)
[2024-12-30] MEDS: HYDROmorphone HCL INJ (*CRX) 1 MG/ML SYR IV PUSH (04:40)
[2024-12-30 06:00] VITALS: BP 108/59; PULSE 89; RESP 20; TEMP 36.4; O2SAT 95
[2024-12-30 06:31] LABS: Basophils Percent Auto 0.3 % (0.2-1.2); Eosinophils Absolute Auto 0.4 K/mm3 (0-0.3); Eosinophils Percent Auto 3.6 % (0-4.4); Hematocrit 39.5 % (37.0-47.0); Hemoglobin 12.9 g/dL (12.0-15.0); Immature Granulocyte Absolute 0.09 K/mm3 (0.00-0.031); Immature Granulocyte Percent A 0.9 % (0-0.5); Lymphocytes Absolute Auto 1.58 K/mm3 (0.9-3.2); Mean Corpuscular HGB Conc 32.7 g/dl (32-36); Mean Corpuscular Hemoglobin 28.1 pg (26-34); Mean Corpuscular Volume 86.1 fl (80-100); Mean Platelet Volume 9.6 fl (7.4-10.4); Monocytes Absolute Auto 0.9 K/mm3 (0.1-0.6); Monocytes Percent Auto 8.6 % (2.6-8.5); Neutrophils Absolute Auto 7.6 K/mm3 (1.3-6.7); Neutrophils Percent Auto 71.6 % (45.5-73.1); Platelet Count Result 318 k/mm3 (150-375); Red Blood Count 4.59 M/mm3 (4.2-5.4); Red Cell Distribution Width 13.4 % (11.5-14.5); White Blood Count 10.5 K/mm3 (4.5-10.0)
[2024-12-30 06:40] LABS: Anion Gap 12 mmol/L (4-12); Blood Urea Nitrogen 10 mg/dL (7-17); Calcium 9.2 mg/dL (8.4-10.2); Carbon Dioxide 21 mmol/L (22-30); Chloride 103 mmol/L (98-107); Estimated Glomerular Filt Rate > 60; Glucose 87 mg/dL (65-110); Potassium 4.2 mmol/L (3.4-5.0); Sodium 136 mmol/L (137-145)
[2024-12-30 08:00] VITALS: PULSE 89; RESP 20; O2SAT 95
[2024-12-30] MEDS: SULFAMETHOXAZOLE/TRIMETHOPRIM 800/160 MG DS TABLET 1 TAB PO ×2 (08:59→20:12)
[2024-12-30] MEDS: BETAMETHASONE/CLOTRIMAZOLE CREAM 45 GM TUBE 1 APPLIC TOPICAL ×2 (09:00→20:10)
[2024-12-30] MEDS: SERTRALINE HCL 25 MG TABLET PO (09:00)
[2024-12-30 09:25] LABS: Hemoglobin A1C 5.4 % (<5.7)
--- NOTE | 2024-12-30 10:28 | PCNWS ---
Weekly nutritional screen. Patient is tolerating current diabetic consistent carbs diet with adequate intake, 75-100%. No weight loss reported. No nutritional needs at this time.
[2024-12-30] MEDS: LIDOCAINE 1% LOCAL INJ 2 ML AMPUL 5 ML INFILTRATE (10:30)
[2024-12-30] MEDS: HYDROmorphone HCL INJ (*CRX) 1 MG/ML SYR 0.5 MG IV PUSH (11:00)
[2024-12-30 14:00] VITALS: BP 125/61; PULSE 65; RESP 18; TEMP 36.2; O2SAT 99
[2024-12-30] MEDS: SALINE LOCK FLUSH 10 ML IV PUSH ×3 (14:00→20:13)
[2024-12-30] MEDS: WATER FOR IRRIGATION, STERILE 1,000 ML BOTTLE 1000 ML (14:54)
--- NOTE | 2024-12-30 16:11 | PM.PNGS ---
Progress Note: A&P Assessment and Plan (1) Abscess of postoperative wound of abdominal wall: Code(s): T81.49XA - Infection following a procedure, other surgical site, initial encounter; L02.211 - Cutaneous abscess of abdominal wall Status: Acute Assessment and Plan: S/p abdominal wall wound exploration on 12/29/24 with placement of wound vac. Pain is being controlled with analgesics. Continue wound vac therapy and we have started the process for approval of a home wound vac for eventual discharge. Will plan to change the dressing in the next 1-2 days. Continue antibiotics. Plan I have discussed the patient's case and plan of care with Dr. Vallecillo. Subjective Subjective Date/Time Seen: 12/30/24 16:11 Post Op day: 1 (Abdominal wall wound exploration and placement of wound VAC) Patient reports: still having pain, tolerating a regular diet, flatus, bowel movement and afebrile Interval history: Patient reports pain at her abdominal wound, which is currently controlled with p.r.n. analgesics. No other specific complaints at this time. Exam Const: General: comfortable and no acute distress Nutritional Appearance: obese GI: Inspection: non-distended GI Palp: Yes Soft to palpation, Yes Tenderness to palpation present (GI) (Near periumbilical wound) and No Guarding due to palpation present (GI) Auscultation: normal bowel sounds Other: Supraumbilical wound with wound VAC in place and functioning well, dressing dry and intact, scant amount of sanguinous drainage in canister Objective Data Vital Signs Vital Signs: Vital Signs - 24 hr 12/29/24 19:28 12/29/24 20:00 12/30/24 06:00 Temperature 97.6 F 97.5 F L Pulse Rate 57 L 89 Respiratory Rate 12 20 Blood Pressure 112/60 108/59 L Pulse Oximetry 97 95 Oxygen Delivery Room Air 12/30/24 08:00 12/30/24 14:00 Temperature 97.1 F L Pulse Rate 89 65 Respiratory Rate 20 18 Blood Pressure 125/61 Pulse Oximetry 95 99 Oxygen Delivery Room Air Intake/Output Intake/Output: Intake & Output 12/27/24 12/28/24 12/29/24 12/30/24 23:59 23:59 23:59 23:59 Intake Total 3720 2757 1130 785 Balance 8742 1849 1130 785 Meds/Results Medications: Active Medications Generic Name Dose Route Start Last Admin Trade Name Freq PRN Reason Stop Dose Admin Acetaminophen 1,000 mg 12/24/24 10:43 12/24/24 15:58 Acetaminophen 500 Mg Tablet PO 1,000 mg Q6H PRN Administration Mild Pain (1-3) or Fever Hydrocodone Bitart/Acetaminophen 1 tab 12/24/24 10:43 12/29/24 08:38 Hydrocodone/Acetaminophen (*Crx) 5-325 Mg Tablet PO 1 tab Q4H PRN Administration Pain Rated 4-6 Clotrimazole 1 applic 12/27/24 03:30 12/30/24 09:00 Betamethasone/Clotrimazole Cream 45 Gm Tube TOPICAL 1 applic Q12HR GEOVANY Administration Diphenhydramine HCl 25 mg 12/27/24 03:23 12/27/24 03:34 Diphenhydramine Hcl Inj 50 Mg/Ml Vial IV PUSH 25 mg Q4H PRN Administration Itching Hydromorphone HCl 0.5 mg 12/23/24 22:39 12/30/24 11:00 Hydromorphone Hcl Inj (*Crx) 1 Mg/Ml Syr IV PUSH 0.5 mg Q3H PRN Administration Pain Rated 4-6 Hydromorphone HCl 1 mg 12/23/24 22:39 12/30/24 04:40 Hydromorphone Hcl Inj (*Crx) 1 Mg/Ml Syr IV PUSH 1 mg Q3H PRN Administration Pain Rated 7-10 Levofloxacin/Dextrose 750 mg in 150 mls @ 100 mls/hr 12/29/24 17:00 12/29/24 17:33 Levaquin 750 Mg/D5w 150 Ml IVPB Infused Q24H GEOVANY Infusion Lorazepam 1 mg 12/23/24 22:45 12/29/24 11:38 Lorazepam Inj (*Crx) 2 Mg/Ml Vial IV PUSH 1 mg Q8H PRN Administration Anxiety Ondansetron HCl 4 mg 12/29/24 13:31 12/29/24 14:44 Ondansetron Inj 4 Mg/2 Ml Vial IV PUSH 4 mg ONCE PRN Administration Nausea Ondansetron HCl 4 mg 12/29/24 21:07 12/30/24 11:00 Ondansetron Inj 4 Mg/2 Ml Vial IV PUSH 4 mg Q4H PRN Administration Nausea And Vomiting Oxycodone HCl 5 mg 12/24/24 10:43 12/30/24 14:39 Oxycodone Hcl (*Crx) 5 Mg Tab Ir PO 5 mg Q4H PRN Administration Pain Rated 7-10 Sertraline HCl 25 mg 12/25/24 09:00 12/30/24 09:00 Sertraline Hcl 25 Mg Tablet PO 25 mg DAILY GEOVANY Administration Sodium Chloride 10 ml 12/30/24 14:00 Saline Lock Flush IV PUSH Q8HR GEOVANY Sodium Chloride 10 ml 12/30/24 10:47 Saline Lock Flush IV PUSH PRN PRN Flush Sodium Chloride 20 ml 12/30/24 10:47 Saline Lock Flush IV PUSH PRN PRN after blood draws Trimethoprim/Sulfamethoxazole 1 tab 12/27/24 21:00 12/30/24 08:59 Sulfamethoxazole/Trimethoprim 800/160 Mg Ds Tablet PO 1 tab Q12HR GEOVANY Administration Zinc Oxide 1 applic 12/27/24 09:00 12/30/24 09:01 Zinc Oxide 20% Oint 30 Gm Tube TOPICAL Not [place] [facility] [place] Results: ITS Impressions Abdomen/Pelvis CT 12/24/24 06:05 Impression: Wound at the umbilicus with possible 2.4 x 0.8 cm early abscess or phlegmon with surrounding infiltrative/inflammatory changes. Cholelithiasis. Labs Labs: Laboratory Results - last 24 hr 12/30/24 05:51 WBC 10.5 H RBC 4.59 Hgb 12.9 Hct 39.5 MCV 86.1 MCH 28.1 MCHC 32.7 RDW 13.4 Plt Count 318 MPV 9.6 Immature Gran % (Auto) 0.9 H Neut % (Auto) 71.6 Lymph % (Auto) 15.0 L [place] % (Auto) 8.6 H Eos % (Auto) 3.6 Baso % (Auto) 0.3 Lymph # (Auto) 1.58 [place] # (Auto) 0.9 H Eos # (Auto) 0.4 H Baso # (Auto) 0.0 Abs Immat Gran (auto) 0.09 H Absolute Neuts (auto) 7.6 H Absolute Nucleated RBC 0.000 Nucleated RBC % 0.0 Sodium 136 L Potassium 4.2 Chloride 103 Carbon Dioxide 21 L Anion Gap 12 BUN 10 Creatinine 0.67 L Estim Creat Clear Calc Not Reportable Estimated GFR > 60 Glucose 87 Hemoglobin A1c 5.4 Calcium 9.2
[2024-12-30] MEDS: levoFLOXacin 750 MG/D5W 150 ML 750 MG/150 ML BAG 150 MG IVPB (18:37)
[2024-12-30 20:05] VITALS: BP 117/65; PULSE 60; RESP 18; TEMP 36.1; O2SAT 97
[2024-12-30] MEDS: FLUCONAZOLE 150 MG TABLET PO (21:53)
[2024-12-31] MEDS: oxyCODONE HCL (*CRX) 5 MG TAB IR PO ×3 (03:47→12:58)
[2024-12-31 06:00] VITALS: BP 113/60; PULSE 60; RESP 18; TEMP 36.1; O2SAT 99
[2024-12-31] MEDS: SALINE LOCK FLUSH 20 ML IV PUSH (06:27)
[2024-12-31] MEDS: SALINE LOCK FLUSH 10 ML IV PUSH ×2 (06:27→12:59)
[2024-12-31 06:48] LABS: Hematocrit 42.8 % (37.0-47.0); Hemoglobin 13.8 g/dL (12.0-15.0); Mean Corpuscular HGB Conc 32.2 g/dl (32-36); Mean Corpuscular Hemoglobin 28.3 pg (26-34); Mean Corpuscular Volume 87.7 fl (80-100); Mean Platelet Volume 9.5 fl (7.4-10.4); Platelet Count Result 309 k/mm3 (150-375); Red Blood Count 4.88 M/mm3 (4.2-5.4); Red Cell Distribution Width 13.6 % (11.5-14.5); White Blood Count 8.5 K/mm3 (4.5-10.0)
[2024-12-31 06:56] LABS: Anion Gap 12 mmol/L (4-12); Blood Urea Nitrogen 11 mg/dL (7-17); Calcium 9.5 mg/dL (8.4-10.2); Carbon Dioxide 20 mmol/L (22-30); Chloride 101 mmol/L (98-107); Estimated Glomerular Filt Rate > 60; Glucose 97 mg/dL (65-110); Potassium 4.5 mmol/L (3.4-5.0); Sodium 133 mmol/L (137-145)
[2024-12-31] MEDS: SULFAMETHOXAZOLE/TRIMETHOPRIM 800/160 MG DS TABLET 1 TAB PO (08:43)
[2024-12-31] MEDS: BETAMETHASONE/CLOTRIMAZOLE CREAM 45 GM TUBE 1 APPLIC TOPICAL (08:43)
[2024-12-31] MEDS: ZINC OXIDE 20% OINT 30 GM TUBE 1 APPLIC TOPICAL (08:43)
[2024-12-31] MEDS: SERTRALINE HCL 25 MG TABLET PO (08:43)
[2024-12-31] MEDS: LORazepam INJ (*CRX) 2 MG/ML VIAL 1 MG IV PUSH (13:43)
[2024-12-31] MEDS: HYDROmorphone HCL INJ (*CRX) 1 MG/ML SYR 0.5 MG IV PUSH (13:43)
--- NOTE | 2024-12-31 13:59 | P.DS_ITS ---
DS: Admitting Diagnosis Discharge Date December 31, 2024 Admitting Diagnosis Abdominal wall abscess DS: Discharge Diagnosis Discharge Diagnosis (1) Abscess of postoperative wound of abdominal wall: Code(s): T81.49XA - Infection following a procedure, other surgical site, initial encounter; L02.211 - Cutaneous abscess of abdominal wall Status: Acute DS: Summary Hospital Course Reason for hospitalization: Abdominal wall abscess Hospital Course: Patient is 44-year-old female who underwent a robotic assisted laparoscopic ventral hernia repair with intraperitoneal onlay mesh approximately 2 months ago. She was doing pretty well but then started having some pain around her umbilicus. Small amount of drainage from the base of her umbilicus. Prior to admission she was seen in the office and was found to have a draining wound and cellulitis and abscess in the periumbilical region. She says was admitted to the hospital started on IV antibiotics. White blood cell count was elevated. CT scan showed organizing fluid and inflammatory changes of the tissues around the umbilicus without evidence of formal abscess. It did not appear to have any fluid around the mesh. She was then subsequently taken to the operating room she underwent an initial incision and drainage of the the fluid and tacked in a [place] drain was placed for continued drainage. Her white blood count initially decreased. She was on vancomycin and Rocephin initially. Her pain improved and her white count decreased almost normal. Cultures of the fluid showed only some normal skin sharon without evidence of MRSA. I then switched her to Bactrim for antibiotic therapy and unfortunately her pain increased and the character of the drainage became little more purulent and her white blood cell count increased. With this worsening of the wound I took her back to the operating room and she underwent a abdominal wall exploration and placement of a wound VAC. After the 2nd drainage of the wound the induration around the area markedly decreased and her white blood cell count would rapidly normalized. I restarted her initially back on Levaquin IV rather vancomycin and Rocephin as there was no MRSA to direct vancomycin towards. On the IV Levaquin she was doing very well and tolerating regular diet. The wound was looking very good with no purulent drainage whatsoever and a wound VAC. The wound VAC dressing was removed a the discharge and the wound appeared 100% healthy without evidence of any necrotic tissue and no purulent drainage. Induration was much improved as well. At this point she was then discharged to go home on oral Levaquin. We are arranging for a home wound VAC applied are awaiting approval from her insurance. In the meantime she will get dressing changes in the [facility] which can be done on an ambulatory basis until the wound VAC is approved and then the wound VAC will be applied in the Wound Care Clinic. I will see her back in the office in 1 to 2 weeks. She is to remain off work until released by me. Status at Discharge Functional status at discharge: independent ambulation Time Spent with Patient Time attestation: Total time spent providing and/or coordinating discharge services: Time spent: Less than 30 minutes Exam GI: Other: Abdomen is obese but soft. The right mid periumbilical wound is healthy and granulating without any evidence of necrotic tissue. There is no purulent drainage. Induration is markedly decreased. There is no exposed mesh anywhere in the base of the wound. DS: Data Data Completed and Pending Labs on day of discharge: Labs from last 24 hours 12/31/24 06:16 WBC 8.5 RBC 4.88 Hgb 13.8 Hct 42.8 MCV 87.7 MCH 28.3 MCHC 32.2 RDW 13.6 Plt Count 309 MPV 9.5 Sodium 133 L Potassium 4.5 Chloride 101 Carbon Dioxide 20 L Anion Gap 12 BUN 11 Creatinine 0.80 Estim Creat Clear Calc Not Reportable Estimated GFR > 60 Glucose 97 Calcium 9.5 Discharge Plan Discharge Attending physician on discharge: Rolando Vallecillo Discharging Clinician: Rolando Vallecillo Anticipated Discharge Date/Time: 12/31/24 14:09 Activity: other - see discharge instructions Diet: as tolerated Wound Care Instructions: other - see discharge instructions Discharge Instructions: Patient is being discharged home. She is to come back to the [facility] tomorrow for dressing change. I will follow her up in the [facility] the next 1 to 2 weeks. No lifting more than 10 to 15 lb until released by me. Patient is to be off work until released by me. Patient have a regular diet at home as tolerated. Patient is to sponge bath for now and keep the dressing dry. She is to continue all her usual home medications. Patient Language: Sinhala Discharge Medications: New oxycodone 5 mg tablet 5 mg PO Q6H PRN (Reason: pain) Qty: 30 0RF docusate sodium [Colace] 100 mg capsule 100 mg PO BID Qty: 30 1RF levofloxacin 500 mg tablet 500 mg PO DAILY Qty: 30 1RF Continued sertraline 25 mg tablet 25 mg PO DAILY ibuprofen [IBU] 800 mg tablet 800 mg PO TID PRN (Reason: pain) Date of admission: 12/23/24 22:39 Primary Care Provider: UNKNOWN,DOCTOR Admitting Provider: Rolando Vallecillo Attending physician on admission: Rolando Vallecillo
[2024-12-31 14:00] VITALS: BP 128/60; PULSE 61; RESP 14; TEMP 36.7; O2SAT 100
--- NOTE | 2024-12-31 17:16 | PC.NURSE ---
Patient's valuables were returned to her from her room's closet.
== END 2024-12-31 17:15 | disposition home or self-care (01) | DRG 863 ==
PROVIDERS: General Practice; Nurse Practitioner Family; Admitting Provider Surgery; Visit Provider Surgery
PROC: 0J980ZX Drainage of Abdomen Subcutaneous Tissue and Fascia, Open Approach, Diagnostic (ICD-10-PCS; principal; 2024-12-24 10:00)
PROC: 0JJT0ZZ Inspection of Trunk Subcutaneous Tissue and Fascia, Open Approach (ICD-10-PCS; principal; 2024-12-29 14:00)
DX: T81.49XA Infection following a procedure, other surgical site, initial encounter (principal); L02.211 Cutaneous abscess of abdominal wall; Z68.41 Body mass index [BMI] 40.0-44.9, adult; F17.210 Nicotine dependence, cigarettes, uncomplicated; E66.01 Morbid (severe) obesity due to excess calories
CPT/HCPCS: 36415; 36569; 74177; 80048; 80053; 80202; 81513; 82565; 83036; 85025; 85027; 85610; 86850; 86900; 86901; 87070; 87075; 87205; 87641; A9270; C1751; J0690; J0696; J1171; J1200; J1741; J1956; J2003; J2004; J2060; J2250; J2270; J2405; J2704; J3010; J3370; J7120; Q9967

== ENCOUNTER 2025-01-26 07:11 | Outpatient (RCR) | payer MEDICAID, SELFPAY ==
--- NOTE | 2025-01-01 12:29 | PCWOUND ---
WOCN NOTE Patient was seen in the outpatient wound center on 01/01/25 for first post discharge assessment and dressing change of Abdominal wound. During assessment, patient states she is current every day smoker, who smokes approximately 1 PPD. Patient was educated on the importance of smoking cessation as this will promote healing. Educated that smoking takes oxygen away from the tissue that can caused delayed healing. Patient verbalized understanding and states she will try very hard to decrease and stop smoking while treating her wound. Will assess her progress weekly at her appointments. Patient also considered to be obese as she is 4'10 and 206 pounds. Patient has been told in the past she needs to lose some weight for her overall health. Discussed options of healing eating choices and to decrease the snacking during the day. Patient was encouraged for optimal healing to increase her protein intake and Vitamin C to help promote new tissue growth for optimal wound healing. Patient verbalized understanding.
[2025-01-01 12:43] VITALS: BMI 43.2
--- NOTE | 2025-01-15 13:27 | P.PNWOUND_ITS ---
Wound Care Note Date/Time: 01/15/25 13:27 History: Heaven is a 44 yo woman who underwent robotic assisted laparoscopic incarcerated incisional hernia repair x3 with preperitoneal placement of Bard soft mesh, primary repair of incarcerated port site incisional hernia x1 on 10/31/[address] Vallecillo. She developed an abdominal wound abscess near her umbilical incision in December and underwent I&D. She continued to have drainage from the wound and her WBC count went up after a few days, therefore she was taken back to surgery for abdominal wall wound exploration and wound vac placement. She eventually was discharged and has been following up in the wound clinic with the wound care nurses. She now presents today for wound check in the wound clinic. Wound history: Her wound vac was stopped and dressings were switched to silver rope packing. Her pain at the wound has significantly improved and the wound is coming down in size. Wound approximation: No Wound width: 5.1 cm Wound length: 0.5 cm Wound depth: 1.1 cm Drainage: Minimal serosanguineous Surrounding tissue appearance: healthy with no erythema or swelling Tunneling: None Percentage granulation tissue: 100% Treatment/Procedures: Dressing change Dressings: Silver rope packing once daily Assessment and Plan Assessment and plan (1) Open abdominal wall wound: Code(s): S31.109A - Unspecified open wound of abdominal wall, unspecified quadrant without penetration into peritoneal cavity, initial encounter Status: Acute Assessment and Plan: * Patient continues to heal well following I&D of abdominal wall abscess. The wound is healing well and there is no longer any tunneling. No signs of infection. She is tolerating dressing changes well at home with the silver rope packing. Will continue this for now. She will remain off work for this week again with lifting restrictions of no more than 15 lbs. Follow-up with the wound care nurses next week and she can return to work once this has healed. She will follow-up with Dr. Vallecillo in the wound clinic in 2 weeks. Plan I have discussed the patient's case and plan of care with Dr. Vallecillo. Exam Narrative: Open linear-shaped abdominal wound near the right of the umbilicus with entire wound bed pink with granulating tissue, no purulent drainage or surrounding erythema or swelling. Nontender.
--- NOTE | 2025-01-26 14:30 | WPDPN ---
Progress Note: A&P Assessment and Plan (1) Abscess of postoperative wound of abdominal wall: Code(s): T81.49XA - Infection following a procedure, other surgical site, initial encounter; L02.211 - Cutaneous abscess of abdominal wall Status: Acute Assessment and Plan: Abdominal wall wound abscess has been drained the wound is now nearly healed and closed. It no longer is deep enough to need any silver rope packing. The patient was instructed to cover the area with a dry gauze and allow the wound to now forming an eschar. She may return to work next Saturday without restrictions. We will forward documentation and to allow to come back to work to her employer all plan on seeing her back in the my office in 1 month. She will no longer need to be seen the wound care clinic. Subjective Date/time seen: 01/26/25 14:30 Interval history: Ms. Elena returns to the Wound Care Clinic today for another recheck on her abdominal wall wound. She is doing very well. May some minor soreness around the umbilicus. The wound has been just packed with silver rope. Exam GI: Other: The abdominal wall wound is nearly closed. It now measures 3.5cm in length by 0.4cm in width by 0.3cm in depth. There is excellent granulation tissue and contraction of the wound. No drainage. There is no drainage from the umbilicus now.
== END 2025-03-22 09:48 | disposition home or self-care (01) ==
LOC: ANHWOC 07:11
PROVIDERS: Visit Provider Surgery
DX: L02.211 Cutaneous abscess of abdominal wall (principal); T81.49XA Infection following a procedure, other surgical site, initial encounter; Z48.01 Encounter for change or removal of surgical wound dressing
CPT/HCPCS: 99213; G0463